=== PATIENT | male | born 1970 | race African-American/Black ===

== ENCOUNTER 2020-04-08 11:20 | Inpatient (IN) | payer MEDICAID, OTHER ==
[~2020-04-08] VITALS: Ht 167.6 cm; Wt 112.5 kg
[~2020-04-08 11:20] MED LIST: ALBU17AE26; AMLO5TAB4; BENA10TA74; HYDR25TA; LIDOCAINE HCL/PF 1% 2ML VIAL ONE; PRIL10; SIMV5TAB58
[2020-04-08] MEDS ORDERED: IPRATROPIUM BROMIDE (0.02%) 0.5MG/2.5ML NEB HHN STA (11:49)
[2020-04-08] MEDS ORDERED: ALBUTEROL (0.083%) 2.5MG/3ML NEB HHN STA (11:49)
[2020-04-08] MEDS ORDERED: CEFTRIAXONE 1 G PREMIX 50 ML IV ONE (12:45)
[2020-04-08] MEDS ORDERED: SODIUM CHLORIDE 0.9% 250 ML IV ONE (12:45)
[2020-04-08] MEDS ORDERED: AZITHROMYCIN 500 MG in DEXT 5% WATER 250 ML IV ONE (12:45)
[2020-04-08] MEDS ORDERED: AZITHROMYCIN 500 MG in DEXT 5% WATER 250 ML IV SCH (13:15)
[2020-04-08] MEDS ORDERED: CEFTRIAXONE 1 G PREMIX 50 ML IV SCH ×2 (13:15→16:45)
[2020-04-08 15:50] LABS: HEMOGLOBIN. 15.6 g/dL (14.0-18.0); MEAN CORPUSCULAR HEMOGLOBIN 21.7 pg (28.0-32.0); MEAN CORPUSCULAR VOLUME 69.2 fL (80.0-94.0); MEAN PLATELET VOLUME 9.1 fl (7.4-10.4); PLATELET 222 x1000/uL (130-400); RED BLOOD CELL COUNT 7.22 mill/uL (4.7-6.1); RED CELL DISTRIBUTION WIDTH 15.3 % (11.6-14.6)
[2020-04-08 15:59] LABS: INR 1.1; PROTHROMBIN TIME 11.2 sec (9.6-11.0)
[2020-04-08 16:11] LABS: PLATELET ESTIMATE NORMAL
[2020-04-08] MEDS ORDERED: BENZONATATE 100MG CAPSULE PO PRN (16:45)
[2020-04-08] MEDS ORDERED: ONDANSETRON HCL 4MG/2ML INJ IV PRN (16:45)
[2020-04-08 16:57] LABS: BG BASE EXCESS 1.9 mmol/L (-2.0-2.0); BG CARBOXYHEMOGLOBIN 1.3 % (0.5-1.5); BG DEOXYHEMOGLOBIN 7.8 % (0.0-5.0); BG HCO3 ACT 24.4 mmol/L (22.0-26.0); BG METHEMOGLOBIN 0.1 % (0.0-1.5); BG OXYGEN SATURATION 92.1 % (92.0-98.5); BG OXYHEMOGLOBIN 90.8 % (94.0-97.0); BG PCO2 32.3 mmHg (35.0-45.0); BG PH 7.496 (7.350-7.450); BG PO2 59.6 mmHg (75.0-100.0); BG SAMPLE SITE RIGHT RADIAL; BG TOTAL HEMOGLOBIN 15.5 g/dL (12.0-18.0); BG VENT MODE ROOM AIR
[2020-04-08 23:44] LABS: CHLORIDE 97 mEq/L (98-107)
[2020-04-09] MEDS: ACETAMINOPHEN 325MG TABLET PO PRN (04:05)
[2020-04-09 04:30] VITALS: BP 122/80
[2020-04-09 05:00] VITALS: BP 122/80
[2020-04-09] MEDS ORDERED: AMLO10TA4 PO (07:39)
[2020-04-09] MEDS ORDERED: ERTU1TAB11 PO (07:39)
[2020-04-09] MEDS ORDERED: HYDR25TA PO (07:39)
[2020-04-09] MEDS ORDERED: FLUT1BLS IH (07:39)
[2020-04-09] MEDS ORDERED: IBUP-2029 PO (07:39)
[2020-04-09] MEDS ORDERED: ATOR20TA PO (07:39)
[2020-04-09] MEDS ORDERED: OMEP20TA15 PO (07:39)
[2020-04-09] MEDS ORDERED: BENA20TA10 MT (07:39)
[2020-04-09 08:00] VITALS: BP 133/58
[2020-04-09] MEDS ORDERED: CEFTRIAXONE 1,000 MG in DEXTROSE 5% WATER 50 ML IV SCH (09:00)
[2020-04-09] MEDS: ENOXAPARIN 30MG/0.3ML SYR SUBCUT SCH ×2 (11:52→22:31)
[2020-04-09] MEDS: AZITHROMYCIN 250 MG TABLET PO SCH (11:52)
[2020-04-09 11:58] VITALS: BP 136/87
[2020-04-09 12:07] LABS: HEMATOCRIT. 49.3 % (42.0-52.0); HEMOGLOBIN. 15.3 g/dL (14.0-18.0); MEAN CORPUSCULAR HEMOGLOBIN 21.5 pg (28.0-32.0); MEAN CORPUSCULAR VOLUME 69.3 fL (80.0-94.0); MEAN PLATELET VOLUME 8.9 fl (7.4-10.4); PLATELET 197 x1000/uL (130-400); RED BLOOD CELL COUNT 7.11 mill/uL (4.7-6.1); RED CELL DISTRIBUTION WIDTH 15.4 % (11.6-14.6)
[2020-04-09 12:37] LABS: CHLORIDE 96 mEq/L (98-107)
[2020-04-09 14:30] LABS: PLATELET ESTIMATE NORMAL
[2020-04-09 15:08] VITALS: BP 131/74
[2020-04-09] MEDS ORDERED: POTASSIUM CHLORIDE 20MEQ TABLET SR PO NR (17:40)
[2020-04-09] MEDS: BLOOD SUGAR DIAGNOSTIC STRIP TEST SCH ×2 (17:40→21:00)
[2020-04-09] MEDS: INSULIN LISPRO 100 UNITS/ML SUBCUT SCH ×2 (17:40→21:00)
[2020-04-09] MEDS: CEFTRIAXONE 1,000 MG in DEXTROSE 5% WATER 50 ML IV SCH (17:42)
[2020-04-09] MEDS ORDERED: DEXTROSE 50% WATER 50ML SYRINGE IV PRN (17:45)
[2020-04-09] MEDS: DEXAMETHASONE 4MG TABLET PO SCH (20:18)
[2020-04-09] MEDS: LORAZEPAM 1MG TABLET PO PRN (22:32)
[2020-04-09 22:40] VITALS: BP 141/90
[2020-04-10] VITALS: BP 148/85
[2020-04-10] MEDS: ACETAMINOPHEN 325MG TABLET PO PRN (04:54)
[2020-04-10 06:00] VITALS: BP 169/97
[2020-04-10] MEDS: BLOOD SUGAR DIAGNOSTIC STRIP TEST SCH ×4 (06:03→21:00)
[2020-04-10] MEDS: AMLODIPINE 10MG TABLET PO SCH (06:03)
[2020-04-10] MEDS: INSULIN LISPRO 100 UNITS/ML SUBCUT SCH ×4 (07:40→21:58)
[2020-04-10 08:00] VITALS: BP 132/91
[2020-04-10] MEDS ORDERED: POTASSIUM CHLORIDE 20MEQ TABLET SR PO NR (08:15)
[2020-04-10] MEDS: DEXAMETHASONE 4MG TABLET PO SCH (09:15)
[2020-04-10] MEDS: ENOXAPARIN 30MG/0.3ML SYR SUBCUT SCH ×2 (09:15→21:31)
[2020-04-10] MEDS: AZITHROMYCIN 250 MG TABLET PO SCH (09:15)
[2020-04-10] MEDS: LORAZEPAM 1MG TABLET PO PRN (11:30)
[2020-04-10 12:00] VITALS: BP 144/105
[2020-04-10 15:21] VITALS: BP 143/96
[2020-04-10] MEDS: CEFTRIAXONE 1,000 MG in DEXTROSE 5% WATER 50 ML IV SCH (15:45)
[2020-04-10 21:30] VITALS: BP 133/85
[2020-04-10] MEDS: METOPROLOL TARTRATE 25MG TABLET PO SCH (21:32)
[2020-04-10] MEDS: GUAIFENESIN 600MG ER TABLET PO SCH (21:32)
[2020-04-10 21:38] LABS: BASOPHILS % 0.2 % (0.0-2.0); HEMATOCRIT. 47.7 % (42.0-52.0); HEMOGLOBIN. 15.1 g/dL (14.0-18.0); LYMPHOCYTES % 8.1 % (20.0-50.0); MEAN CORPUSCULAR HEMOGLOBIN 21.7 pg (28.0-32.0); MEAN CORPUSCULAR VOLUME 68.5 fL (80.0-94.0); MEAN PLATELET VOLUME 8.6 fl (7.4-10.4); MONOCYTES % 12.6 % (2.0-8.0); NEUTROPHILS % 79.1 % (40.0-76.0); PLATELET 300 x1000/uL (130-400); RED BLOOD CELL COUNT 6.96 mill/uL (4.7-6.1); RED CELL DISTRIBUTION WIDTH 15.7 % (11.6-14.6)
[2020-04-10 21:53] LABS: CHLORIDE 96 mEq/L (98-107)
[2020-04-11] VITALS: BP 138/60
[2020-04-11 04:00] VITALS: BP 151/89
[2020-04-11] MEDS: BLOOD SUGAR DIAGNOSTIC STRIP TEST SCH ×4 (04:59→19:57)
[2020-04-11] MEDS: INSULIN LISPRO 100 UNITS/ML SUBCUT SCH ×4 (05:29→21:00)
[2020-04-11 07:18] LABS: BASOPHILS % 0.2 % (0.0-2.0); HEMATOCRIT. 49.8 % (42.0-52.0); HEMOGLOBIN. 15.8 g/dL (14.0-18.0); LYMPHOCYTES % 9.1 % (20.0-50.0); MEAN CORPUSCULAR HEMOGLOBIN 21.6 pg (28.0-32.0); MEAN CORPUSCULAR VOLUME 68.2 fL (80.0-94.0); MEAN PLATELET VOLUME 9.2 fl (7.4-10.4); MONOCYTES % 13.3 % (2.0-8.0); NEUTROPHILS % 77.4 % (40.0-76.0); PLATELET 271 x1000/uL (130-400); RED BLOOD CELL COUNT 7.31 mill/uL (4.7-6.1); RED CELL DISTRIBUTION WIDTH 15.5 % (11.6-14.6)
[2020-04-11 07:38] LABS: CHLORIDE 96 mEq/L (98-107)
[2020-04-11 08:00] VITALS: BP 141/72
[2020-04-11] MEDS: GUAIFENESIN 600MG ER TABLET PO SCH ×2 (08:34→21:42)
[2020-04-11] MEDS: DEXAMETHASONE 4MG TABLET PO SCH (08:34)
[2020-04-11] MEDS: AZITHROMYCIN 250 MG TABLET PO SCH (08:34)
[2020-04-11] MEDS: ENOXAPARIN 30MG/0.3ML SYR SUBCUT SCH (08:35)
[2020-04-11] MEDS: AMLODIPINE 10MG TABLET PO SCH (08:35)
[2020-04-11] MEDS: METOPROLOL TARTRATE 25MG TABLET PO SCH ×2 (08:35→21:42)
[2020-04-11 12:00] VITALS: BP 140/75
[2020-04-11 13:46] LABS: PLATELET ESTIMATE NORMAL
[2020-04-11 16:00] VITALS: BP 119/71
[2020-04-11] MEDS: CEFTRIAXONE 1,000 MG in DEXTROSE 5% WATER 50 ML IV SCH (16:55)
[2020-04-11 20:00] VITALS: BP 131/78
[2020-04-11] MEDS: ENOXAPARIN 40MG/0.4ML SYR SUBCUT SCH (21:42)
[2020-04-12] VITALS: BP 128/77
[2020-04-12 04:00] VITALS: BP 129/79
[2020-04-12] MEDS: INSULIN LISPRO 100 UNITS/ML SUBCUT SCH ×4 (05:40→21:00)
[2020-04-12] MEDS: BLOOD SUGAR DIAGNOSTIC STRIP TEST SCH ×4 (05:40→21:00)
[2020-04-12 08:00] VITALS: BP 132/80
[2020-04-12] MEDS: AMLODIPINE 10MG TABLET PO SCH (08:17)
[2020-04-12] MEDS: GUAIFENESIN 600MG ER TABLET PO SCH (08:17)
[2020-04-12] MEDS: DEXAMETHASONE 4MG TABLET PO SCH (08:17)
[2020-04-12] MEDS: METOPROLOL TARTRATE 25MG TABLET PO SCH (08:17)
[2020-04-12] MEDS: ENOXAPARIN 40MG/0.4ML SYR SUBCUT SCH (08:18)
[2020-04-12 12:00] VITALS: BP 134/75
[2020-04-12] MEDS: ALBUTEROL 6.7GM HFA INHALER ORI SCH (13:50)
[2020-04-12 16:00] VITALS: BP 123/80
[2020-04-12 20:00] VITALS: BP 133/80
[2020-04-13] VITALS: BP 115/77
[2020-04-13] MEDS: GUAIFENESIN 600MG ER TABLET PO SCH ×3 (01:24→22:30)
[2020-04-13] MEDS: ENOXAPARIN 40MG/0.4ML SYR SUBCUT SCH ×3 (01:24→22:32)
[2020-04-13] MEDS: ZOLPIDEM TARTRATE 5MG TABLET PO PRN ×2 (01:26→22:30)
[2020-04-13] MEDS: METOPROLOL TARTRATE 25MG TABLET PO SCH ×3 (01:26→22:31)
[2020-04-13] MEDS: ALBUTEROL 6.7GM HFA INHALER ORI SCH ×5 (01:30→18:36)
[2020-04-13] MEDS: BLOOD SUGAR DIAGNOSTIC STRIP TEST SCH ×4 (07:10→21:00)
[2020-04-13] MEDS: INSULIN LISPRO 100 UNITS/ML SUBCUT SCH ×4 (07:40→21:00)
[2020-04-13 08:00] VITALS: BP 126/76
[2020-04-13] MEDS: DEXAMETHASONE 6MG TABLET PO SCH (08:43)
[2020-04-13] MEDS: AMLODIPINE 10MG TABLET PO SCH (08:44)
[2020-04-13] MEDS: ACETAMINOPHEN 325MG TABLET PO PRN (08:44)
[2020-04-13 12:00] VITALS: BP 118/66
[2020-04-13 16:30] VITALS: BP 148/96
[2020-04-13] MEDS ORDERED: FAMOTIDINE 20MG TABLET PO NR (18:12)
[2020-04-13 20:00] VITALS: BP 147/80
[2020-04-14] VITALS: BP 135/76
[2020-04-14] MEDS: ALBUTEROL 6.7GM HFA INHALER ORI SCH ×2 (01:12→21:59)
[2020-04-14 04:00] VITALS: BP 126/76
[2020-04-14] MEDS: BLOOD SUGAR DIAGNOSTIC STRIP TEST SCH ×4 (05:55→21:53)
[2020-04-14] MEDS: INSULIN LISPRO 100 UNITS/ML SUBCUT SCH ×4 (05:55→21:00)
[2020-04-14 07:14] LABS: CHLORIDE 98 mEq/L (98-107)
[2020-04-14 07:48] LABS: BASOPHILS % 0.2 % (0.0-2.0); EOSINOPHILS % 0.1 % (0.0-5.0); HEMOGLOBIN. 15.3 g/dL (14.0-18.0); LYMPHOCYTES % 10.1 % (20.0-50.0); MEAN CORPUSCULAR HEMOGLOBIN 21.7 pg (28.0-32.0); MEAN CORPUSCULAR VOLUME 68.3 fL (80.0-94.0); MEAN PLATELET VOLUME 8.2 fl (7.4-10.4); MONOCYTES % 13.4 % (2.0-8.0); NEUTROPHILS % 76.2 % (40.0-76.0); PLATELET 500 x1000/uL (130-400); RED BLOOD CELL COUNT 7.03 mill/uL (4.7-6.1); RED CELL DISTRIBUTION WIDTH 15.2 % (11.6-14.6)
[2020-04-14 08:00] VITALS: BP 118/78
[2020-04-14] MEDS: DEXAMETHASONE 6MG TABLET PO SCH (10:02)
[2020-04-14] MEDS: ENOXAPARIN 40MG/0.4ML SYR SUBCUT SCH ×2 (10:02→21:58)
[2020-04-14] MEDS: AMLODIPINE 10MG TABLET PO SCH (10:03)
[2020-04-14] MEDS: GUAIFENESIN 600MG ER TABLET PO SCH ×2 (10:03→21:57)
[2020-04-14] MEDS: METOPROLOL TARTRATE 25MG TABLET PO SCH ×2 (10:03→21:57)
[2020-04-14] MEDS: ACETAMINOPHEN 325MG TABLET PO PRN (10:04)
[2020-04-14 12:00] VITALS: BP 117/72
[2020-04-14] MEDS: FAMOTIDINE 20MG TABLET PO SCH (12:52)
[2020-04-14 16:00] VITALS: BP 122/76
[2020-04-14 20:00] VITALS: BP 119/77
[2020-04-14] MEDS: ZOLPIDEM TARTRATE 5MG TABLET PO PRN (21:57)
[2020-04-15] VITALS: BP 131/82
[2020-04-15] MEDS: ALBUTEROL 6.7GM HFA INHALER ORI SCH ×4 (02:02→21:47)
[2020-04-15 04:00] VITALS: BP_SYST 131; BP_SYST 137; BP_DIAS 81; BP_DIAS 82
[2020-04-15] MEDS: BLOOD SUGAR DIAGNOSTIC STRIP TEST SCH ×4 (06:25→21:56)
[2020-04-15 06:35] LABS: BASOPHILS % 0.2 % (0.0-2.0); EOSINOPHILS % 0.3 % (0.0-5.0); HEMATOCRIT. 48.5 % (42.0-52.0); HEMOGLOBIN. 15.3 g/dL (14.0-18.0); LYMPHOCYTES % 9.3 % (20.0-50.0); MEAN CORPUSCULAR HEMOGLOBIN 21.7 pg (28.0-32.0); MEAN CORPUSCULAR VOLUME 69.1 fL (80.0-94.0); MEAN PLATELET VOLUME 7.8 fl (7.4-10.4); MONOCYTES % 14.2 % (2.0-8.0); PLATELET 524 x1000/uL (130-400); RED BLOOD CELL COUNT 7.02 mill/uL (4.7-6.1)
[2020-04-15] MEDS: INSULIN LISPRO 100 UNITS/ML SUBCUT SCH ×4 (06:35→21:47)
[2020-04-15 06:49] LABS: CHLORIDE 99 mEq/L (98-107)
[2020-04-15 08:00] VITALS: BP 125/80
[2020-04-15] MEDS: METOPROLOL TARTRATE 25MG TABLET PO SCH ×2 (08:45→21:55)
[2020-04-15] MEDS: FAMOTIDINE 20MG TABLET PO SCH (08:45)
[2020-04-15] MEDS: DEXAMETHASONE 6MG TABLET PO SCH (08:45)
[2020-04-15] MEDS: GUAIFENESIN 600MG ER TABLET PO SCH ×2 (08:46→21:47)
[2020-04-15] MEDS: ENOXAPARIN 40MG/0.4ML SYR SUBCUT SCH ×2 (08:46→21:56)
[2020-04-15 12:00] VITALS: BP 127/82
[2020-04-15] MEDS: AMLODIPINE 10MG TABLET PO SCH (12:29)
[2020-04-15 16:00] VITALS: BP 143/93
[2020-04-15] MEDS: MORPHINE SULFATE 2 MG/ML CPJ (NOT FOR IM USE) IV PRN (17:16)
[2020-04-15 20:00] VITALS: BP 141/100
[2020-04-15] MEDS: ZOLPIDEM TARTRATE 5MG TABLET PO PRN (21:50)
[2020-04-15] MEDS: LOPERAMIDE HCL 2MG CAPSULE PO PRN (21:56)
[2020-04-16] VITALS: BP 134/87
[2020-04-16 04:00] VITALS: BP 135/89
[2020-04-16] MEDS: ALBUTEROL 6.7GM HFA INHALER ORI SCH ×4 (05:39→19:49)
[2020-04-16] MEDS: BLOOD SUGAR DIAGNOSTIC STRIP TEST SCH ×4 (06:41→21:00)
[2020-04-16 08:00] VITALS: BP 141/88
[2020-04-16] MEDS: LACTOBACILLUS GG CAPSULE PO SCH (08:07)
[2020-04-16] MEDS: FAMOTIDINE 20MG TABLET PO SCH (08:07)
[2020-04-16] MEDS: AMLODIPINE 10MG TABLET PO SCH (08:07)
[2020-04-16] MEDS: GUAIFENESIN 600MG ER TABLET PO SCH ×2 (08:07→22:02)
[2020-04-16] MEDS: METOPROLOL TARTRATE 25MG TABLET PO SCH (08:08)
[2020-04-16] MEDS: DEXAMETHASONE 6MG TABLET PO SCH (08:08)
[2020-04-16] MEDS: ENOXAPARIN 40MG/0.4ML SYR SUBCUT SCH ×2 (08:08→22:02)
[2020-04-16] MEDS: INSULIN LISPRO 100 UNITS/ML SUBCUT SCH ×4 (08:09→22:03)
[2020-04-16 12:00] VITALS: BP 144/92
[2020-04-16 16:00] VITALS: BP 143/92
[2020-04-16 20:00] VITALS: BP 131/85
[2020-04-16] MEDS ORDERED: IVERMECTIN 3 MG TABLET PO NR (20:00)
[2020-04-16] MEDS: METOPROLOL TARTRATE 50MG TABLET PO SCH (22:02)
[2020-04-17] VITALS: BP 131/96
[2020-04-17] MEDS: ALBUTEROL 6.7GM HFA INHALER ORI SCH ×3 (01:30→22:25)
[2020-04-17 04:00] VITALS: BP 126/84
[2020-04-17] MEDS: INSULIN LISPRO 100 UNITS/ML SUBCUT SCH ×4 (06:12→21:00)
[2020-04-17] MEDS: BLOOD SUGAR DIAGNOSTIC STRIP TEST SCH ×4 (06:12→21:00)
[2020-04-17 08:00] VITALS: BP 144/92
[2020-04-17] MEDS: LACTOBACILLUS GG CAPSULE PO SCH (11:23)
[2020-04-17] MEDS: DEXAMETHASONE 6MG TABLET PO SCH (11:23)
[2020-04-17] MEDS: ENOXAPARIN 40MG/0.4ML SYR SUBCUT SCH ×2 (11:23→22:24)
[2020-04-17] MEDS: FAMOTIDINE 20MG TABLET PO SCH (11:23)
[2020-04-17] MEDS: GUAIFENESIN 600MG ER TABLET PO SCH ×2 (11:23→22:24)
[2020-04-17] MEDS: AMLODIPINE 10MG TABLET PO SCH (11:24)
[2020-04-17] MEDS: METOPROLOL TARTRATE 50MG TABLET PO SCH ×2 (11:25→22:24)
[2020-04-17 12:00] VITALS: BP 145/100
[2020-04-17] MEDS: ACETAMINOPHEN 325MG TABLET PO PRN (12:11)
[2020-04-17] MEDS: LOPERAMIDE HCL 2MG CAPSULE PO PRN (14:36)
[2020-04-17 16:00] VITALS: BP 135/98
[2020-04-17 20:00] VITALS: BP 126/91
[2020-04-18] MEDS: ALBUTEROL 6.7GM HFA INHALER ORI SCH ×4 (01:30→21:25)
[2020-04-18 04:00] VITALS: BP 130/90
[2020-04-18] MEDS: BLOOD SUGAR DIAGNOSTIC STRIP TEST SCH ×4 (06:08→21:40)
[2020-04-18] MEDS: INSULIN LISPRO 100 UNITS/ML SUBCUT SCH ×4 (06:41→21:36)
[2020-04-18] MEDS: AMLODIPINE 10MG TABLET PO SCH (08:36)
[2020-04-18] MEDS: ACETAMINOPHEN 325MG TABLET PO PRN (08:37)
[2020-04-18] MEDS: LACTOBACILLUS GG CAPSULE PO SCH (08:37)
[2020-04-18] MEDS: GUAIFENESIN 600MG ER TABLET PO SCH ×2 (08:37→21:28)
[2020-04-18] MEDS: METOPROLOL TARTRATE 50MG TABLET PO SCH ×2 (08:37→21:28)
[2020-04-18] MEDS: FAMOTIDINE 20MG TABLET PO SCH (08:37)
[2020-04-18] MEDS: ENOXAPARIN 40MG/0.4ML SYR SUBCUT SCH ×2 (08:38→21:27)
[2020-04-18] MEDS: DEXAMETHASONE 6MG TABLET PO SCH (08:38)
[2020-04-18 12:08] VITALS: BP 135/76
[2020-04-18 12:12] VITALS: BP 146/86
[2020-04-18 16:05] VITALS: BP 141/96
[2020-04-18 17:02] LABS: HEMATOCRIT. 49.1 % (42.0-52.0); HEMOGLOBIN. 15.1 g/dL (14.0-18.0); MEAN CORPUSCULAR HEMOGLOBIN 21.3 pg (28.0-32.0); MEAN CORPUSCULAR VOLUME 68.9 fL (80.0-94.0); MEAN PLATELET VOLUME 7.9 fl (7.4-10.4); PLATELET 462 x1000/uL (130-400); RED BLOOD CELL COUNT 7.12 mill/uL (4.7-6.1); RED CELL DISTRIBUTION WIDTH 15.1 % (11.6-14.6)
[2020-04-18 17:22] LABS: CHLORIDE 103 mEq/L (98-107)
[2020-04-18 18:13] LABS: PLATELET ESTIMATE INCREASED
[2020-04-18] MEDS ORDERED: IVERMECTIN 3 MG TABLET PO SCH (18:30)
[2020-04-18 20:00] VITALS: BP 126/79
[2020-04-18] MEDS: CEFEPIME 1,000 MG in DEXTROSE 5% WATER 50 ML IV SCH (21:26)
[2020-04-18] MEDS: MORPHINE SULFATE 2 MG/ML CPJ (NOT FOR IM USE) IV PRN (23:52)
[2020-04-18 23:54] LABS: BG BASE EXCESS -0.4 mmol/L (-2.0-2.0); BG DEOXYHEMOGLOBIN 35.9 % (0.0-5.0); BG FRACTION INSPIRED OXYGEN 100; BG HCO3 ACT 23.4 mmol/L (22.0-26.0); BG METHEMOGLOBIN 0.3 % (0.0-1.5); BG OXYGEN SATURATION 63.6 % (92.0-98.5); BG OXYHEMOGLOBIN 62.8 % (94.0-97.0); BG PO2 32.9 mmHg (75.0-100.0); BG SAMPLE SITE RIGHT RADIAL; BG TOTAL HEMOGLOBIN 16.6 g/dL (12.0-18.0); BG VENT MODE MASK - NRB
[2020-04-19] VITALS (98 sets, daily range): BP systolic 56–170; BP diastolic 27–119
[2020-04-19] MEDS: ALBUTEROL 6.7GM HFA INHALER ORI SCH ×3 (00:39→13:48)
[2020-04-19] MEDS: PROPOFOL 10MG/ML 100ML 100 ML IV PRN ×7 (01:35→19:09)
[2020-04-19] MEDS: FENTANYL CITRATE/PF 2,500 MCG in SODIUM CHLORIDE 0.9% 200 ML IV PRN ×2 (01:35→04:20)
[2020-04-19 03:00] LABS: BG BASE EXCESS -4.5 mmol/L (-2.0-2.0); BG CARBOXYHEMOGLOBIN 0.6 % (0.5-1.5); BG DEOXYHEMOGLOBIN 16.6 % (0.0-5.0); BG FRACTION INSPIRED OXYGEN 100; BG HCO3 ACT 22.4 mmol/L (22.0-26.0); BG METHEMOGLOBIN 0.3 % (0.0-1.5); BG OXYGEN SATURATION 83.2 % (92.0-98.5); BG OXYHEMOGLOBIN 82.5 % (94.0-97.0); BG PCO2 47.6 mmHg (35.0-45.0); BG PH 7.291 (7.350-7.450); BG PO2 53.3 mmHg (75.0-100.0); BG SAMPLE SITE RIGHT RADIAL; BG TOTAL HEMOGLOBIN 17.1 g/dL (12.0-18.0); BG TOTAL RESPIRATORY RATE 22 b/min; BG VENT MODE VENT - AC
[2020-04-19] MEDS ORDERED: PHENYLEPHRINE 100 MG in DEXT 5% WATER 240 ML IV PRN (04:00)
[2020-04-19] MEDS ORDERED: FENTANYL CITRATE/PF 2,500 MCG in SODIUM CHLORIDE 0.9% 200 ML IV PRN (04:00)
[2020-04-19] MEDS: MIDAZOLAM HCL 100 MG in DEXT 5% WATER 80 ML IV PRN ×4 (04:00→21:28)
[2020-04-19 08:12] LABS: CHLORIDE 106 mEq/L (98-107); HEMATOCRIT. 49.3 % (42.0-52.0); HEMOGLOBIN. 14.8 g/dL (14.0-18.0); MEAN CORPUSCULAR HEMOGLOBIN 21.1 pg (28.0-32.0); MEAN CORPUSCULAR VOLUME 70.6 fL (80.0-94.0); MEAN PLATELET VOLUME 8.3 fl (7.4-10.4); PLATELET 532 x1000/uL (130-400); RED BLOOD CELL COUNT 6.98 mill/uL (4.7-6.1); RED CELL DISTRIBUTION WIDTH 15.2 % (11.6-14.6)
[2020-04-19 08:17] LABS: PHOSPHORUS 7.2 mg/dL (2.5-4.9)
[2020-04-19] MEDS: BLOOD SUGAR DIAGNOSTIC STRIP TEST SCH ×4 (08:20→21:00)
[2020-04-19] MEDS: LACTOBACILLUS GG CAPSULE PO SCH (08:37)
[2020-04-19] MEDS: METOPROLOL TARTRATE 50MG TABLET PO SCH (08:37)
[2020-04-19] MEDS: DEXAMETHASONE 6MG TABLET PO SCH (08:38)
[2020-04-19] MEDS: GUAIFENESIN 600MG ER TABLET PO SCH ×2 (08:38→21:24)
[2020-04-19] MEDS: FAMOTIDINE 20MG TABLET PO SCH (08:45)
[2020-04-19] MEDS: ENOXAPARIN 40MG/0.4ML SYR SUBCUT SCH ×2 (08:46→21:25)
[2020-04-19] MEDS: CEFEPIME 1,000 MG in DEXTROSE 5% WATER 50 ML IV SCH ×2 (08:50→21:24)
[2020-04-19] MEDS: AMLODIPINE 10MG TABLET PO SCH (08:51)
[2020-04-19] MEDS: INSULIN LISPRO 100 UNITS/ML SUBCUT SCH ×3 (08:52→17:21)
[2020-04-19] MEDS: ACETAMINOPHEN 325MG TABLET PO PRN ×3 (09:17→15:53)
[2020-04-19 10:41] LABS: BG BASE EXCESS -2.9 mmol/L (-2.0-2.0); BG CARBOXYHEMOGLOBIN 0.9 % (0.5-1.5); BG DEOXYHEMOGLOBIN 6.1 % (0.0-5.0); BG METHEMOGLOBIN 0.1 % (0.0-1.5); BG OXYGEN SATURATION 93.8 % (92.0-98.5); BG OXYHEMOGLOBIN 92.9 % (94.0-97.0); BG PCO2 62.6 mmHg (35.0-45.0); BG PH 7.237 (7.350-7.450); BG PO2 81.1 mmHg (75.0-100.0); BG SAMPLE SITE RIGHT RADIAL; BG TOTAL HEMOGLOBIN 15.9 g/dL (12.0-18.0); BG VENT MODE VENT - AC
[2020-04-19 13:51] LABS: NUCLEATED RED BLOOD CELLS 1 /100 WBC
[2020-04-19 13:52] LABS: PLATELET ESTIMATE INCREASED
[2020-04-19] MEDS: IPRATROPIUM BROMIDE (0.02%) 0.5MG/2.5ML NEB HHN SCH ×2 (15:30→20:50)
[2020-04-19] MEDS ORDERED: ASCORBIC ACID 500MG/5ML 120ML PO SCH (16:30)
[2020-04-19] MEDS: ZINC SULFATE 220 MG ( 50 ) CAPSULE PO SCH (17:20)
[2020-04-19] MEDS: ASCORBIC ACID 500 MG TABLET PO SCH (17:20)
[2020-04-19] MEDS: THIAMINE HCL 100MG TABLET PO SCH (17:22)
[2020-04-19] MEDS: METOPROLOL TARTRATE 100MG TABLET PO SCH (21:00)
[2020-04-20] VITALS (95 sets, daily range): BP systolic 85–143; BP diastolic 51–87
[2020-04-20] MEDS: PROPOFOL 10MG/ML 100ML 100 ML IV PRN ×2 (00:13→04:48)
[2020-04-20] MEDS: METOPROLOL TARTRATE 100MG TABLET PO SCH ×2 (00:21→20:51)
[2020-04-20] MEDS: ALBUTEROL 6.7GM HFA INHALER ORI SCH ×3 (01:30→20:26)
[2020-04-20] MEDS: INSULIN LISPRO 100 UNITS/ML SUBCUT SCH ×5 (01:46→21:14)
[2020-04-20] MEDS ORDERED: PROPOFOL 10MG/ML 100ML 100 ML IV PRN (02:00)
[2020-04-20] MEDS: FENTANYL CITRATE/PF 2,500 MCG in SODIUM CHLORIDE 0.9% 200 ML IV PRN ×2 (04:06→17:31)
[2020-04-20] MEDS: IPRATROPIUM BROMIDE (0.02%) 0.5MG/2.5ML NEB HHN SCH ×4 (04:16→20:26)
[2020-04-20 05:46] LABS: HEMATOCRIT. 46.6 % (42.0-52.0); HEMOGLOBIN. 14.3 g/dL (14.0-18.0); MEAN CORPUSCULAR HEMOGLOBIN 21.7 pg (28.0-32.0); MEAN CORPUSCULAR VOLUME 70.7 fL (80.0-94.0); MEAN PLATELET VOLUME 8.4 fl (7.4-10.4); PLATELET 391 x1000/uL (130-400)
[2020-04-20 05:53] LABS: CHLORIDE 105 mEq/L (98-107)
[2020-04-20] MEDS: BLOOD SUGAR DIAGNOSTIC STRIP TEST SCH ×4 (08:21→21:00)
[2020-04-20] MEDS: MIDAZOLAM HCL 100 MG in DEXT 5% WATER 80 ML IV PRN ×2 (08:56→17:32)
[2020-04-20] MEDS: ENOXAPARIN 40MG/0.4ML SYR SUBCUT SCH (09:33)
[2020-04-20] MEDS: ZINC SULFATE 220 MG ( 50 ) CAPSULE PO SCH (09:33)
[2020-04-20] MEDS: CEFEPIME 1,000 MG in DEXTROSE 5% WATER 50 ML IV SCH ×2 (09:33→20:52)
[2020-04-20] MEDS: ASCORBIC ACID 500 MG TABLET PO SCH (09:33)
[2020-04-20] MEDS: FAMOTIDINE 20MG TABLET PO SCH (09:33)
[2020-04-20] MEDS: DEXAMETHASONE 6MG TABLET PO SCH (09:33)
[2020-04-20] MEDS: GUAIFENESIN 600MG ER TABLET PO SCH ×2 (09:33→20:51)
[2020-04-20] MEDS: LACTOBACILLUS GG CAPSULE PO SCH (09:33)
[2020-04-20] MEDS: THIAMINE HCL 100MG TABLET PO SCH (09:34)
[2020-04-20] MEDS: AMLODIPINE 10MG TABLET PO SCH (09:34)
[2020-04-20 13:20] LABS: BG CARBOXYHEMOGLOBIN 0.4 % (0.5-1.5); BG DEOXYHEMOGLOBIN 1.8 % (0.0-5.0); BG HCO3 ACT 25.2 mmol/L (22.0-26.0); BG METHEMOGLOBIN 0.1 % (0.0-1.5); BG OXYGEN SATURATION 98.2 % (92.0-98.5); BG OXYHEMOGLOBIN 97.7 % (94.0-97.0); BG PCO2 52.5 mmHg (35.0-45.0); BG PH 7.299 (7.350-7.450); BG PO2 128.4 mmHg (75.0-100.0); BG SAMPLE SITE RIGHT RADIAL; BG TOTAL HEMOGLOBIN 15.4 g/dL (12.0-18.0); BG VENT MODE VENT - AC
[2020-04-20 14:26] LABS: PLATELET ESTIMATE NORMAL
[2020-04-20] MEDS: SODIUM CHLORIDE 0.45% 1,000 ML IV SCH (17:22)
[2020-04-20] MEDS: ENOXAPARIN 30MG/0.3ML SYR SUBCUT SCH (20:55)
[2020-04-21] VITALS (79 sets, daily range): BP systolic 102–140; BP diastolic 59–99
[2020-04-21] MEDS: ALBUTEROL 6.7GM HFA INHALER ORI SCH ×4 (00:51→20:40)
[2020-04-21] MEDS: IPRATROPIUM BROMIDE (0.02%) 0.5MG/2.5ML NEB HHN SCH ×3 (00:51→13:51)
[2020-04-21] MEDS: FENTANYL CITRATE/PF 2,500 MCG in SODIUM CHLORIDE 0.9% 200 ML IV PRN ×3 (03:17→23:33)
[2020-04-21] MEDS: MIDAZOLAM HCL 100 MG in DEXT 5% WATER 80 ML IV PRN ×2 (03:17→13:06)
[2020-04-21 05:50] LABS: HEMATOCRIT. 43.8 % (42.0-52.0); HEMOGLOBIN. 13.6 g/dL (14.0-18.0); MEAN CORPUSCULAR HEMOGLOBIN 21.7 pg (28.0-32.0); MEAN CORPUSCULAR VOLUME 70.1 fL (80.0-94.0); RED BLOOD CELL COUNT 6.24 mill/uL (4.7-6.1); RED CELL DISTRIBUTION WIDTH 16.1 % (11.6-14.6)
[2020-04-21] MEDS: SODIUM CHLORIDE 0.45% 1,000 ML IV SCH ×2 (06:02→18:40)
[2020-04-21 06:05] LABS: CHLORIDE 108 mEq/L (98-107)
[2020-04-21] MEDS: BLOOD SUGAR DIAGNOSTIC STRIP TEST SCH ×4 (06:54→21:00)
[2020-04-21] MEDS: INSULIN LISPRO 100 UNITS/ML SUBCUT SCH ×4 (06:56→21:00)
[2020-04-21 07:57] LABS: PLATELET ESTIMATE INCREASED
[2020-04-21 07:59] LABS: MEAN PLATELET VOLUME 8.9 fl (7.4-10.4); PLATELET 435 x1000/uL (130-400)
[2020-04-21] MEDS: FAMOTIDINE 20MG TABLET PO SCH (08:31)
[2020-04-21] MEDS: LACTOBACILLUS GG CAPSULE PO SCH (08:31)
[2020-04-21] MEDS: DEXAMETHASONE 6MG TABLET PO SCH (08:31)
[2020-04-21] MEDS: AMLODIPINE 10MG TABLET PO SCH (08:31)
[2020-04-21] MEDS: GUAIFENESIN 600MG ER TABLET PO SCH ×2 (08:31→23:33)
[2020-04-21] MEDS: THIAMINE HCL 100MG TABLET PO SCH (08:31)
[2020-04-21] MEDS: ZINC SULFATE 220 MG ( 50 ) CAPSULE PO SCH (08:32)
[2020-04-21] MEDS: METOPROLOL TARTRATE 100MG TABLET PO SCH ×2 (08:32→23:33)
[2020-04-21] MEDS: ASCORBIC ACID 500 MG TABLET PO SCH (08:32)
[2020-04-21] MEDS: ENOXAPARIN 30MG/0.3ML SYR SUBCUT SCH ×2 (08:33→23:34)
[2020-04-21] MEDS: CEFEPIME 1,000 MG in DEXTROSE 5% WATER 50 ML IV SCH ×2 (08:48→23:33)
[2020-04-21 11:24] LABS: BG FRACTION INSPIRED OXYGEN 80; BG HCO3 ACT 28.8 mmol/L (22.0-26.0); BG METHEMOGLOBIN 0.2 % (0.0-1.5); BG OXYGEN SATURATION 94.9 % (92.0-98.5); BG OXYHEMOGLOBIN 93.8 % (94.0-97.0); BG PCO2 58.7 mmHg (35.0-45.0); BG PH 7.309 (7.350-7.450); BG PO2 77.7 mmHg (75.0-100.0); BG SAMPLE SITE RIGHT RADIAL; BG VENT MODE VENT - AC
[2020-04-21] MEDS: CEFAZOLIN 1000MG PREMIX 50 ML IV SCH (23:39)
[2020-04-22] VITALS (77 sets, daily range): BP systolic 109–171; BP diastolic 69–128
[2020-04-22] MEDS: MIDAZOLAM HCL 100 MG in DEXT 5% WATER 80 ML IV PRN ×2 (01:34→14:24)
[2020-04-22] MEDS: IPRATROPIUM BROMIDE (0.02%) 0.5MG/2.5ML NEB HHN SCH ×3 (03:05→20:59)
[2020-04-22 05:59] LABS: BASOPHILS % 0.5 % (0.0-2.0); EOSINOPHILS % 0.4 % (0.0-5.0); HEMATOCRIT. 42.3 % (42.0-52.0); HEMOGLOBIN. 13.2 g/dL (14.0-18.0); LYMPHOCYTES % 7.8 % (20.0-50.0); MEAN CORPUSCULAR VOLUME 70.5 fL (80.0-94.0); MEAN PLATELET VOLUME 8.1 fl (7.4-10.4); MONOCYTES % 13.8 % (2.0-8.0); NEUTROPHILS % 77.5 % (40.0-76.0); PLATELET 374 x1000/uL (130-400); RED CELL DISTRIBUTION WIDTH 15.8 % (11.6-14.6)
[2020-04-22 06:07] LABS: CHLORIDE 112 mEq/L (98-107)
[2020-04-22] MEDS: BLOOD SUGAR DIAGNOSTIC STRIP TEST SCH ×3 (06:44→17:25)
[2020-04-22] MEDS: CEFAZOLIN 1000MG PREMIX 50 ML IV SCH ×3 (06:44→23:52)
[2020-04-22] MEDS: INSULIN LISPRO 100 UNITS/ML SUBCUT SCH ×3 (06:44→17:25)
[2020-04-22] MEDS: SODIUM CHLORIDE 0.45% 1,000 ML IV SCH ×2 (08:29→22:49)
[2020-04-22] MEDS: FENTANYL CITRATE/PF 2,500 MCG in SODIUM CHLORIDE 0.9% 200 ML IV PRN ×2 (08:33→18:52)
[2020-04-22] MEDS: ALBUTEROL 6.7GM HFA INHALER ORI SCH (08:40)
[2020-04-22] MEDS: AMLODIPINE 10MG TABLET PO SCH (08:41)
[2020-04-22] MEDS: LACTOBACILLUS GG CAPSULE PO SCH (08:41)
[2020-04-22] MEDS: GUAIFENESIN 600MG ER TABLET PO SCH ×2 (08:41→21:00)
[2020-04-22] MEDS: ENOXAPARIN 30MG/0.3ML SYR SUBCUT SCH ×2 (08:41→22:48)
[2020-04-22] MEDS: THIAMINE HCL 100MG TABLET PO SCH (08:41)
[2020-04-22] MEDS: METOPROLOL TARTRATE 100MG TABLET PO SCH ×2 (08:41→22:48)
[2020-04-22] MEDS: FAMOTIDINE 20MG TABLET PO SCH (08:41)
[2020-04-22] MEDS: ZINC SULFATE 220 MG ( 50 ) CAPSULE PO SCH (08:41)
[2020-04-22 08:46] LABS: BG BASE EXCESS 2.1 mmol/L (-2.0-2.0); BG CARBOXYHEMOGLOBIN 0.1 % (0.5-1.5); BG DEOXYHEMOGLOBIN 9.7 % (0.0-5.0); BG FRACTION INSPIRED OXYGEN 80; BG HCO3 ACT 27.9 mmol/L (22.0-26.0); BG METHEMOGLOBIN 0.3 % (0.0-1.5); BG OXYGEN SATURATION 90.3 % (92.0-98.5); BG OXYHEMOGLOBIN 89.9 % (94.0-97.0); BG PCO2 47.7 mmHg (35.0-45.0); BG PH 7.385 (7.350-7.450); BG PO2 58.5 mmHg (75.0-100.0); BG SAMPLE SITE RIGHT RADIAL; BG TOTAL HEMOGLOBIN 14.4 g/dL (12.0-18.0); BG VENT MODE VENT - AC/VC
[2020-04-22] MEDS: ASCORBIC ACID 500 MG TABLET PO SCH ×2 (10:35→22:47)
[2020-04-23] VITALS (72 sets, daily range): BP systolic 107–178; BP diastolic 60–100
[2020-04-23] MEDS: BLOOD SUGAR DIAGNOSTIC STRIP TEST SCH ×4 (00:16→17:33)
[2020-04-23] MEDS: GUAIFENESIN-DM 200MG-20MG/10ML UDC PO SCH ×6 (00:21→20:00)
[2020-04-23] MEDS: IPRATROPIUM BROMIDE (0.02%) 0.5MG/2.5ML NEB HHN SCH ×2 (00:29→20:05)
[2020-04-23] MEDS: ALBUTEROL 6.7GM HFA INHALER ORI SCH ×2 (00:33→07:30)
[2020-04-23] MEDS: MIDAZOLAM HCL 100 MG in DEXT 5% WATER 80 ML IV PRN ×2 (04:32→14:54)
[2020-04-23] MEDS: INSULIN LISPRO 100 UNITS/ML SUBCUT SCH ×4 (06:45→17:34)
[2020-04-23 06:55] LABS: HEMOGLOBIN. 13.7 g/dL (14.0-18.0); MEAN CORPUSCULAR HEMOGLOBIN 21.4 pg (28.0-32.0); MEAN CORPUSCULAR VOLUME 70.5 fL (80.0-94.0); MEAN PLATELET VOLUME 8.3 fl (7.4-10.4); PLATELET 356 x1000/uL (130-400); RED BLOOD CELL COUNT 6.39 mill/uL (4.7-6.1); RED CELL DISTRIBUTION WIDTH 15.8 % (11.6-14.6)
[2020-04-23 06:56] LABS: CHLORIDE 110 mEq/L (98-107)
[2020-04-23] MEDS: CEFAZOLIN 1000MG PREMIX 50 ML IV SCH ×3 (07:30→23:20)
[2020-04-23] MEDS: FENTANYL CITRATE/PF 2,500 MCG in SODIUM CHLORIDE 0.9% 200 ML IV PRN ×2 (07:38→15:49)
[2020-04-23 08:40] LABS: PLATELET ESTIMATE NORMAL
[2020-04-23] MEDS: LACTOBACILLUS GG CAPSULE PO SCH (08:59)
[2020-04-23] MEDS: AMLODIPINE 10MG TABLET PO SCH (08:59)
[2020-04-23] MEDS: THIAMINE HCL 100MG TABLET PO SCH (08:59)
[2020-04-23] MEDS: FAMOTIDINE 20MG TABLET PO SCH (08:59)
[2020-04-23] MEDS: ZINC SULFATE 220 MG ( 50 ) CAPSULE PO SCH (08:59)
[2020-04-23] MEDS: METOPROLOL TARTRATE 100MG TABLET PO SCH ×2 (08:59→22:06)
[2020-04-23] MEDS: ENOXAPARIN 30MG/0.3ML SYR SUBCUT SCH ×2 (09:00→22:06)
[2020-04-23 09:29] LABS: BG BASE EXCESS -2.3 mmol/L (-2.0-2.0); BG CARBOXYHEMOGLOBIN 0.8 % (0.5-1.5); BG DEOXYHEMOGLOBIN 4.2 % (0.0-5.0); BG FRACTION INSPIRED OXYGEN 90; BG HCO3 ACT 26.1 mmol/L (22.0-26.0); BG METHEMOGLOBIN 0.3 % (0.0-1.5); BG OXYGEN SATURATION 95.8 % (92.0-98.5); BG OXYHEMOGLOBIN 94.7 % (94.0-97.0); BG PCO2 59.7 mmHg (35.0-45.0); BG PH 7.258 (7.350-7.450); BG PO2 87.6 mmHg (75.0-100.0); BG SAMPLE SITE RIGHT RADIAL; BG TOTAL HEMOGLOBIN 14.9 g/dL (12.0-18.0); BG VENT MODE VENT - AC
[2020-04-23] MEDS ORDERED: LACTULOSE 20G/30ML UDC PO NR (12:00)
[2020-04-23] MEDS: SODIUM CHLORIDE 0.45% 1,000 ML IV SCH (12:07)
[2020-04-24] VITALS (84 sets, daily range): BP systolic 117–175; BP diastolic 66–112
[2020-04-24] MEDS: GUAIFENESIN-DM 200MG-20MG/10ML UDC PO SCH ×6 (01:08→21:30)
[2020-04-24] MEDS: INSULIN LISPRO 100 UNITS/ML SUBCUT SCH ×4 (01:09→18:00)
[2020-04-24] MEDS: SODIUM CHLORIDE 0.45% 1,000 ML IV SCH ×2 (02:13→13:18)
[2020-04-24] MEDS: IPRATROPIUM BROMIDE (0.02%) 0.5MG/2.5ML NEB HHN SCH ×4 (02:46→20:39)
[2020-04-24] MEDS: MIDAZOLAM 100MG/100ML PREMIX IV PRN ×2 (03:54→13:11)
[2020-04-24] MEDS: FENTANYL CITRATE/PF 2,500 MCG in SODIUM CHLORIDE 0.9% 200 ML IV PRN ×2 (04:20→13:10)
[2020-04-24] MEDS: BLOOD SUGAR DIAGNOSTIC STRIP TEST SCH ×4 (06:06→18:07)
[2020-04-24 06:10] LABS: HEMATOCRIT. 44.4 % (42.0-52.0); HEMOGLOBIN. 13.1 g/dL (14.0-18.0); MEAN CORPUSCULAR HEMOGLOBIN 21.3 pg (28.0-32.0); MEAN CORPUSCULAR VOLUME 72.2 fL (80.0-94.0); MEAN PLATELET VOLUME 8.1 fl (7.4-10.4); PLATELET 300 x1000/uL (130-400); RED BLOOD CELL COUNT 6.15 mill/uL (4.7-6.1)
[2020-04-24 06:18] LABS: CHLORIDE 112 mEq/L (98-107)
[2020-04-24] MEDS: METOPROLOL TARTRATE 100MG TABLET PO SCH ×2 (07:29→21:34)
[2020-04-24] MEDS: CEFAZOLIN 1000MG PREMIX 50 ML IV SCH ×3 (07:30→23:16)
[2020-04-24] MEDS: ASCORBIC ACID 500 MG TABLET PO SCH (08:32)
[2020-04-24] MEDS: AMLODIPINE 10MG TABLET PO SCH (08:32)
[2020-04-24] MEDS: LACTOBACILLUS GG CAPSULE PO SCH (08:32)
[2020-04-24] MEDS: THIAMINE HCL 100MG TABLET PO SCH (08:32)
[2020-04-24] MEDS: ZINC SULFATE 220 MG ( 50 ) CAPSULE PO SCH (08:32)
[2020-04-24] MEDS: ENOXAPARIN 30MG/0.3ML SYR SUBCUT SCH ×2 (08:33→21:32)
[2020-04-24] MEDS: FAMOTIDINE 20MG TABLET PO SCH (08:33)
[2020-04-24 08:58] LABS: BG BASE EXCESS 2.4 mmol/L (-2.0-2.0); BG CARBOXYHEMOGLOBIN 0.4 % (0.5-1.5); BG DEOXYHEMOGLOBIN 1.8 % (0.0-5.0); BG FRACTION INSPIRED OXYGEN 90; BG HCO3 ACT 28.9 mmol/L (22.0-26.0); BG METHEMOGLOBIN 0.3 % (0.0-1.5); BG OXYGEN SATURATION 98.2 % (92.0-98.5); BG OXYHEMOGLOBIN 97.5 % (94.0-97.0); BG PCO2 52.6 mmHg (35.0-45.0); BG PH 7.358 (7.350-7.450); BG PO2 117.6 mmHg (75.0-100.0); BG SAMPLE SITE RIGHT RADIAL; BG TOTAL HEMOGLOBIN 13.8 g/dL (12.0-18.0); BG VENT MODE VENT - AC/VC
[2020-04-24 10:31] LABS: PLATELET ESTIMATE NORMAL
[2020-04-24] MEDS: METHYLPREDNISOLONE SOD SUCC 40 MG/ML VIAL IV SCH ×2 (13:18→21:33)
[2020-04-24] MEDS: ALBUTEROL 6.7GM HFA INHALER ORI SCH (20:39)
[2020-04-25] VITALS (85 sets, daily range): BP systolic 117–172; BP diastolic 59–107
[2020-04-25] MEDS: GUAIFENESIN-DM 200MG-20MG/10ML UDC PO SCH ×6 (00:16→20:37)
[2020-04-25] MEDS: BLOOD SUGAR DIAGNOSTIC STRIP TEST SCH ×4 (00:16→18:45)
[2020-04-25] MEDS: INSULIN LISPRO 100 UNITS/ML SUBCUT SCH ×4 (00:17→18:00)
[2020-04-25] MEDS: ALBUTEROL 6.7GM HFA INHALER ORI SCH (01:09)
[2020-04-25] MEDS: IPRATROPIUM BROMIDE (0.02%) 0.5MG/2.5ML NEB HHN SCH ×4 (01:09→20:59)
[2020-04-25] MEDS: MIDAZOLAM 100MG/100ML PREMIX IV PRN ×2 (01:18→16:21)
[2020-04-25] MEDS: SODIUM CHLORIDE 0.45% 1,000 ML IV SCH ×2 (04:01→16:09)
[2020-04-25] MEDS: FENTANYL CITRATE/PF 2,500 MCG in SODIUM CHLORIDE 0.9% 200 ML IV PRN ×2 (04:07→21:25)
[2020-04-25 05:38] LABS: HEMATOCRIT. 41.6 % (42.0-52.0); HEMOGLOBIN. 12.4 g/dL (14.0-18.0); MEAN CORPUSCULAR HEMOGLOBIN 21.1 pg (28.0-32.0); MEAN PLATELET VOLUME 8.5 fl (7.4-10.4); PLATELET 293 x1000/uL (130-400); RED BLOOD CELL COUNT 5.86 mill/uL (4.7-6.1); RED CELL DISTRIBUTION WIDTH 16.1 % (11.6-14.6)
[2020-04-25 05:42] LABS: CHLORIDE 113 mEq/L (98-107)
[2020-04-25] MEDS: METHYLPREDNISOLONE SOD SUCC 40 MG/ML VIAL IV SCH ×3 (06:27→20:37)
[2020-04-25] MEDS: METOPROLOL TARTRATE 100MG TABLET PO SCH ×2 (08:41→20:37)
[2020-04-25] MEDS: FAMOTIDINE 20MG TABLET PO SCH (08:41)
[2020-04-25] MEDS: ZINC SULFATE 220 MG ( 50 ) CAPSULE PO SCH (08:41)
[2020-04-25] MEDS: LACTOBACILLUS GG CAPSULE PO SCH (08:41)
[2020-04-25] MEDS: THIAMINE HCL 100MG TABLET PO SCH (08:41)
[2020-04-25] MEDS: ASCORBIC ACID 500 MG TABLET PO SCH (08:42)
[2020-04-25] MEDS: AMLODIPINE 10MG TABLET PO SCH (08:42)
[2020-04-25] MEDS: ENOXAPARIN 30MG/0.3ML SYR SUBCUT SCH ×2 (08:45→20:37)
[2020-04-25 09:16] LABS: BG BASE EXCESS 2.5 mmol/L (-2.0-2.0); BG CARBOXYHEMOGLOBIN 0.4 % (0.5-1.5); BG DEOXYHEMOGLOBIN 0.8 % (0.0-5.0); BG FRACTION INSPIRED OXYGEN 80; BG HCO3 ACT 25.8 mmol/L (22.0-26.0); BG METHEMOGLOBIN 0.3 % (0.0-1.5); BG OXYGEN SATURATION 99.2 % (92.0-98.5); BG OXYHEMOGLOBIN 98.5 % (94.0-97.0); BG PCO2 35.4 mmHg (35.0-45.0); BG PO2 186.1 mmHg (75.0-100.0); BG SAMPLE SITE RIGHT RADIAL; BG TOTAL HEMOGLOBIN 13.4 g/dL (12.0-18.0); BG VENT MODE VENT - AC/VC
[2020-04-25] MEDS: CEFAZOLIN 1000MG PREMIX 50 ML IV SCH ×3 (09:59→22:37)
[2020-04-25 12:50] LABS: PLATELET ESTIMATE NORMAL
[2020-04-25] MEDS: ACETAMINOPHEN 325MG TABLET PO PRN (20:48)
[2020-04-26] VITALS (46 sets, daily range): BP systolic 117–168; BP diastolic 63–109
[2020-04-26] MEDS: INSULIN LISPRO 100 UNITS/ML SUBCUT SCH ×4 (00:13→18:52)
[2020-04-26] MEDS: MIDAZOLAM 100MG/100ML PREMIX IV PRN ×2 (01:58→12:41)
[2020-04-26] MEDS: IPRATROPIUM BROMIDE (0.02%) 0.5MG/2.5ML NEB HHN SCH ×4 (02:50→21:10)
[2020-04-26] MEDS: GUAIFENESIN-DM 200MG-20MG/10ML UDC PO SCH ×6 (04:00→20:00)
[2020-04-26] MEDS: FENTANYL CITRATE/PF 2,500 MCG in SODIUM CHLORIDE 0.9% 200 ML IV PRN ×3 (04:47→21:48)
[2020-04-26] MEDS: METHYLPREDNISOLONE SOD SUCC 40 MG/ML VIAL IV SCH ×3 (05:08→21:25)
[2020-04-26] MEDS: BLOOD SUGAR DIAGNOSTIC STRIP TEST SCH ×5 (05:55→23:41)
[2020-04-26] MEDS: CEFAZOLIN 1000MG PREMIX 50 ML IV SCH ×2 (06:20→15:20)
[2020-04-26 06:48] LABS: CHLORIDE 114 mEq/L (98-107)
[2020-04-26 06:51] LABS: HEMATOCRIT. 40.1 % (42.0-52.0); HEMOGLOBIN. 11.9 g/dL (14.0-18.0); MEAN CORPUSCULAR HEMOGLOBIN 21.3 pg (28.0-32.0); MEAN CORPUSCULAR VOLUME 71.6 fL (80.0-94.0); MEAN PLATELET VOLUME 8.3 fl (7.4-10.4); PLATELET 267 x1000/uL (130-400)
[2020-04-26] MEDS: ALBUTEROL 6.7GM HFA INHALER ORI SCH ×3 (07:30→13:49)
[2020-04-26] MEDS: LACTOBACILLUS GG CAPSULE PO SCH (09:15)
[2020-04-26] MEDS: FAMOTIDINE 20MG TABLET PO SCH (09:16)
[2020-04-26] MEDS: THIAMINE HCL 100MG TABLET PO SCH (09:16)
[2020-04-26] MEDS: ASCORBIC ACID 500 MG TABLET PO SCH (09:16)
[2020-04-26] MEDS: AMLODIPINE 10MG TABLET PO SCH (09:17)
[2020-04-26] MEDS: METOPROLOL TARTRATE 100MG TABLET PO SCH ×2 (09:17→21:26)
[2020-04-26] MEDS: ZINC SULFATE 220 MG ( 50 ) CAPSULE PO SCH (09:17)
[2020-04-26] MEDS: ENOXAPARIN 30MG/0.3ML SYR SUBCUT SCH (09:23)
[2020-04-26 10:39] LABS: BG BASE EXCESS 4.7 mmol/L (-2.0-2.0); BG CARBOXYHEMOGLOBIN 0.3 % (0.5-1.5); BG DEOXYHEMOGLOBIN 2.8 % (0.0-5.0); BG FRACTION INSPIRED OXYGEN 75; BG HCO3 ACT 31.8 mmol/L (22.0-26.0); BG METHEMOGLOBIN 0.2 % (0.0-1.5); BG OXYGEN SATURATION 97.2 % (92.0-98.5); BG OXYHEMOGLOBIN 96.7 % (94.0-97.0); BG PCO2 58.2 mmHg (35.0-45.0); BG PH 7.355 (7.350-7.450); BG PO2 91.9 mmHg (75.0-100.0); BG SAMPLE SITE RIGHT RADIAL; BG TOTAL HEMOGLOBIN 13.1 g/dL (12.0-18.0); BG VENT MODE PRVC
[2020-04-26 18:25] LABS: PLATELET ESTIMATE NORMAL
[2020-04-26] MEDS: ENOXAPARIN 40MG/0.4ML SYR SUBCUT SCH (21:25)
[2020-04-27] VITALS (54 sets, daily range): BP systolic 121–180; BP diastolic 64–115
[2020-04-27] MEDS: MIDAZOLAM 100MG/100ML PREMIX IV PRN ×3 (00:25→20:58)
[2020-04-27] MEDS: GUAIFENESIN-DM 200MG-20MG/10ML UDC PO SCH ×6 (00:38→21:07)
[2020-04-27] MEDS: INSULIN LISPRO 100 UNITS/ML SUBCUT SCH ×3 (00:39→17:58)
[2020-04-27] MEDS: IPRATROPIUM BROMIDE (0.02%) 0.5MG/2.5ML NEB HHN SCH ×3 (04:15→20:50)
[2020-04-27 05:28] LABS: HEMOGLOBIN. 11.1 g/dL (14.0-18.0); MEAN CORPUSCULAR HEMOGLOBIN 21.1 pg (28.0-32.0); MEAN CORPUSCULAR VOLUME 72.2 fL (80.0-94.0); MEAN PLATELET VOLUME 8.5 fl (7.4-10.4); PLATELET 210 x1000/uL (130-400); RED BLOOD CELL COUNT 5.26 mill/uL (4.7-6.1); RED CELL DISTRIBUTION WIDTH 15.8 % (11.6-14.6)
[2020-04-27 05:36] LABS: CHLORIDE 113 mEq/L (98-107)
[2020-04-27] MEDS: BLOOD SUGAR DIAGNOSTIC STRIP TEST SCH ×3 (06:00→18:01)
[2020-04-27] MEDS: FENTANYL CITRATE/PF 2,500 MCG in SODIUM CHLORIDE 0.9% 200 ML IV PRN ×3 (07:13→20:27)
[2020-04-27] MEDS ORDERED: NOREPINEPHRINE 32 MG in DEXT 5% WATER 218 ML IV PRN (08:45)
[2020-04-27] MEDS: LACTOBACILLUS GG CAPSULE PO SCH (09:26)
[2020-04-27] MEDS: ENOXAPARIN 40MG/0.4ML SYR SUBCUT SCH ×2 (09:26→21:10)
[2020-04-27] MEDS: ZINC SULFATE 220 MG ( 50 ) CAPSULE PO SCH (09:26)
[2020-04-27] MEDS: METHYLPREDNISOLONE SOD SUCC 40 MG/ML VIAL IV SCH ×3 (09:26→21:07)
[2020-04-27] MEDS: ASCORBIC ACID 500 MG TABLET PO SCH (09:26)
[2020-04-27] MEDS: THIAMINE HCL 100MG TABLET PO SCH (09:27)
[2020-04-27] MEDS: AMLODIPINE 10MG TABLET PO SCH (09:27)
[2020-04-27] MEDS: FAMOTIDINE 20MG TABLET PO SCH (09:27)
[2020-04-27] MEDS: METOPROLOL TARTRATE 100MG TABLET PO SCH ×2 (09:27→21:07)
[2020-04-27 10:09] LABS: BG BASE EXCESS 8.2 mmol/L (-2.0-2.0); BG CARBOXYHEMOGLOBIN 0.3 % (0.5-1.5); BG DEOXYHEMOGLOBIN 3.3 % (0.0-5.0); BG FRACTION INSPIRED OXYGEN 75; BG HCO3 ACT 34.7 mmol/L (22.0-26.0); BG OXYGEN SATURATION 96.7 % (92.0-98.5); BG OXYHEMOGLOBIN 96.4 % (94.0-97.0); BG PCO2 56.9 mmHg (35.0-45.0); BG PH 7.403 (7.350-7.450); BG PO2 86.1 mmHg (75.0-100.0); BG SAMPLE SITE RIGHT RADIAL; BG TOTAL HEMOGLOBIN 12.8 g/dL (12.0-18.0); BG TOTAL RESPIRATORY RATE 31 b/min; BG VENT MODE PRVC
[2020-04-27 11:12] LABS: ATYPICAL LYMPHOCYTES 1
[2020-04-27 11:13] LABS: PLATELET ESTIMATE NORMAL
[2020-04-27] MEDS: LACTULOSE 20G/30ML UDC PO PRN (12:50)
[2020-04-28] VITALS (47 sets, daily range): BP systolic 123–160; BP diastolic 68–94
[2020-04-28] MEDS: GUAIFENESIN-DM 200MG-20MG/10ML UDC PO SCH ×7 (00:35→23:27)
[2020-04-28] MEDS: INSULIN LISPRO 100 UNITS/ML SUBCUT SCH ×5 (00:36→23:32)
[2020-04-28] MEDS: IPRATROPIUM BROMIDE (0.02%) 0.5MG/2.5ML NEB HHN SCH ×4 (03:20→20:30)
[2020-04-28] MEDS: FENTANYL CITRATE/PF 2,500 MCG in SODIUM CHLORIDE 0.9% 200 ML IV PRN ×3 (04:26→22:26)
[2020-04-28 05:44] LABS: CHLORIDE 109 mEq/L (98-107)
[2020-04-28 05:48] LABS: BASOPHILS % 1.1 % (0.0-2.0); EOSINOPHILS % 0.1 % (0.0-5.0); HEMATOCRIT. 40.3 % (42.0-52.0); LYMPHOCYTES % 8.4 % (20.0-50.0); MEAN CORPUSCULAR HEMOGLOBIN 21.4 pg (28.0-32.0); MEAN CORPUSCULAR VOLUME 71.8 fL (80.0-94.0); MEAN PLATELET VOLUME 8.7 fl (7.4-10.4); MONOCYTES % 12.4 % (2.0-8.0); PLATELET 222 x1000/uL (130-400); RED BLOOD CELL COUNT 5.62 mill/uL (4.7-6.1); RED CELL DISTRIBUTION WIDTH 15.9 % (11.6-14.6)
[2020-04-28] MEDS: BLOOD SUGAR DIAGNOSTIC STRIP TEST SCH ×5 (06:00→23:12)
[2020-04-28] MEDS: METHYLPREDNISOLONE SOD SUCC 40 MG/ML VIAL IV SCH ×3 (06:10→21:05)
[2020-04-28] MEDS: MIDAZOLAM 100MG/100ML PREMIX IV PRN ×2 (06:49→16:31)
[2020-04-28] MEDS: THIAMINE HCL 100MG TABLET PO SCH (08:02)
[2020-04-28] MEDS: LACTOBACILLUS GG CAPSULE PO SCH (08:02)
[2020-04-28] MEDS: ASCORBIC ACID 500 MG TABLET PO SCH (08:02)
[2020-04-28] MEDS: AMLODIPINE 10MG TABLET PO SCH (08:03)
[2020-04-28] MEDS: ZINC SULFATE 220 MG ( 50 ) CAPSULE PO SCH (08:03)
[2020-04-28] MEDS: METOPROLOL TARTRATE 100MG TABLET PO SCH ×2 (08:03→20:42)
[2020-04-28] MEDS: FAMOTIDINE 20MG TABLET PO SCH (08:03)
[2020-04-28] MEDS: ENOXAPARIN 40MG/0.4ML SYR SUBCUT SCH ×2 (08:04→20:43)
[2020-04-28 09:11] LABS: BG BASE EXCESS 10.7 mmol/L (-2.0-2.0); BG CARBOXYHEMOGLOBIN 0.5 % (0.5-1.5); BG DEOXYHEMOGLOBIN 0.8 % (0.0-5.0); BG FRACTION INSPIRED OXYGEN 75; BG HCO3 ACT 37.2 mmol/L (22.0-26.0); BG METHEMOGLOBIN 0.3 % (0.0-1.5); BG OXYGEN SATURATION 99.2 % (92.0-98.5); BG OXYHEMOGLOBIN 98.4 % (94.0-97.0); BG PCO2 57.5 mmHg (35.0-45.0); BG PH 7.429 (7.350-7.450); BG PO2 181.1 mmHg (75.0-100.0); BG SAMPLE SITE RIGHT RADIAL; BG TOTAL HEMOGLOBIN 13.3 g/dL (12.0-18.0); BG VENT MODE VENT - AC/PRVC
[2020-04-29] VITALS (70 sets, daily range): BP systolic 127–175; BP diastolic 67–106
[2020-04-29] MEDS: IPRATROPIUM BROMIDE (0.02%) 0.5MG/2.5ML NEB HHN SCH ×4 (02:29→20:25)
[2020-04-29] MEDS ORDERED: MIDAZOLAM 100MG/100ML PMX 100 ML IV PRN (02:45)
[2020-04-29] MEDS ORDERED: MIDAZOLAM HCL 100 MG in DEXT 5% WATER 100 ML IV PRN (03:00)
[2020-04-29] MEDS: GUAIFENESIN-DM 200MG-20MG/10ML UDC PO SCH ×6 (04:09→23:23)
[2020-04-29] MEDS: BLOOD SUGAR DIAGNOSTIC STRIP TEST SCH ×4 (05:27→23:25)
[2020-04-29] MEDS: INSULIN LISPRO 100 UNITS/ML SUBCUT SCH ×4 (05:31→23:24)
[2020-04-29 05:48] LABS: BASOPHILS % 0.5 % (0.0-2.0); EOSINOPHILS % 0.1 % (0.0-5.0); HEMATOCRIT. 36.7 % (42.0-52.0); HEMOGLOBIN. 11.1 g/dL (14.0-18.0); LYMPHOCYTES % 10.1 % (20.0-50.0); MEAN CORPUSCULAR HEMOGLOBIN 21.4 pg (28.0-32.0); MEAN CORPUSCULAR VOLUME 70.8 fL (80.0-94.0); MEAN PLATELET VOLUME 8.8 fl (7.4-10.4); MONOCYTES % 14.6 % (2.0-8.0); NEUTROPHILS % 74.7 % (40.0-76.0); PLATELET 180 x1000/uL (130-400); RED BLOOD CELL COUNT 5.18 mill/uL (4.7-6.1); RED CELL DISTRIBUTION WIDTH 15.2 % (11.6-14.6)
[2020-04-29 06:00] LABS: CHLORIDE 109 mEq/L (98-107)
[2020-04-29] MEDS: METHYLPREDNISOLONE SOD SUCC 125 MG/2 ML VIAL IV SCH ×3 (06:49→21:17)
[2020-04-29] MEDS: FENTANYL CITRATE/PF 2,500 MCG in SODIUM CHLORIDE 0.9% 200 ML IV PRN ×2 (07:29→16:18)
[2020-04-29 08:58] LABS: BG BASE EXCESS 6.8 mmol/L (-2.0-2.0); BG CARBOXYHEMOGLOBIN 0.3 % (0.5-1.5); BG DEOXYHEMOGLOBIN 1.1 % (0.0-5.0); BG FRACTION INSPIRED OXYGEN 75; BG HCO3 ACT 31.6 mmol/L (22.0-26.0); BG METHEMOGLOBIN 0.3 % (0.0-1.5); BG OXYGEN SATURATION 98.9 % (92.0-98.5); BG OXYHEMOGLOBIN 98.3 % (94.0-97.0); BG PCO2 45.5 mmHg (35.0-45.0); BG PH 7.459 (7.350-7.450); BG PO2 159.8 mmHg (75.0-100.0); BG SAMPLE SITE RIGHT RADIAL; BG TOTAL HEMOGLOBIN 11.9 g/dL (12.0-18.0); BG VENT MODE VENT - AC/PRVC
[2020-04-29] MEDS: DOCUSATE SODIUM SUGAR FREE 100MG/10ML UDC NG SCH (09:21)
[2020-04-29] MEDS: ZINC SULFATE 220 MG ( 50 ) CAPSULE PO SCH (09:22)
[2020-04-29] MEDS: ASCORBIC ACID 500 MG TABLET PO SCH (09:22)
[2020-04-29] MEDS: THIAMINE HCL 100MG TABLET PO SCH (09:22)
[2020-04-29] MEDS: AMLODIPINE 10MG TABLET PO SCH (09:22)
[2020-04-29] MEDS: LACTOBACILLUS GG CAPSULE PO SCH (09:22)
[2020-04-29] MEDS: FAMOTIDINE 20MG TABLET PO SCH (09:22)
[2020-04-29] MEDS: METOPROLOL TARTRATE 100MG TABLET PO SCH ×2 (09:23→20:39)
[2020-04-29] MEDS: ENOXAPARIN 40MG/0.4ML SYR SUBCUT SCH ×2 (09:24→20:40)
[2020-04-29] MEDS: MIDAZOLAM 100MG/100ML PREMIX IV PRN ×2 (12:00→22:56)
[2020-04-29] MEDS: LACTULOSE 20G/30ML UDC PO PRN (16:32)
[2020-04-29] MEDS: ALBUTEROL 6.7GM HFA INHALER ORI SCH (20:25)
[2020-04-30] VITALS (72 sets, daily range): BP systolic 108–164; BP diastolic 50–112
[2020-04-30] MEDS: FENTANYL CITRATE/PF 2,500 MCG in SODIUM CHLORIDE 0.9% 200 ML IV PRN ×4 (00:55→23:37)
[2020-04-30] MEDS: ALBUTEROL 6.7GM HFA INHALER ORI SCH (01:08)
[2020-04-30] MEDS: IPRATROPIUM BROMIDE (0.02%) 0.5MG/2.5ML NEB HHN SCH ×3 (01:08→21:08)
[2020-04-30] MEDS: GUAIFENESIN-DM 200MG-20MG/10ML UDC PO SCH ×6 (03:12→23:36)
[2020-04-30] MEDS: BLOOD SUGAR DIAGNOSTIC STRIP TEST SCH ×4 (05:10→23:19)
[2020-04-30] MEDS: METHYLPREDNISOLONE SOD SUCC 125 MG/2 ML VIAL IV SCH ×3 (05:30→21:07)
[2020-04-30] MEDS: INSULIN LISPRO 100 UNITS/ML SUBCUT SCH ×4 (05:31→23:36)
[2020-04-30 05:41] LABS: BASOPHILS % 0.6 % (0.0-2.0); EOSINOPHILS % 0.1 % (0.0-5.0); LYMPHOCYTES % 7.5 % (20.0-50.0); MEAN CORPUSCULAR HEMOGLOBIN 21.5 pg (28.0-32.0); MEAN PLATELET VOLUME 9.1 fl (7.4-10.4); MONOCYTES % 13.1 % (2.0-8.0); NEUTROPHILS % 78.7 % (40.0-76.0); PLATELET 170 x1000/uL (130-400); RED BLOOD CELL COUNT 5.13 mill/uL (4.7-6.1); RED CELL DISTRIBUTION WIDTH 15.7 % (11.6-14.6)
[2020-04-30 05:46] LABS: CHLORIDE 107 mEq/L (98-107)
[2020-04-30] MEDS: MIDAZOLAM 100MG/100ML PREMIX IV PRN (09:03)
[2020-04-30] MEDS: ASCORBIC ACID 500 MG TABLET PO SCH (09:19)
[2020-04-30] MEDS: FAMOTIDINE 20MG TABLET PO SCH (09:19)
[2020-04-30] MEDS: ZINC SULFATE 220 MG ( 50 ) CAPSULE PO SCH (09:19)
[2020-04-30] MEDS: AMLODIPINE 10MG TABLET PO SCH (09:20)
[2020-04-30] MEDS: METOPROLOL TARTRATE 100MG TABLET PO SCH ×2 (09:20→20:37)
[2020-04-30] MEDS: LACTOBACILLUS GG CAPSULE PO SCH (09:20)
[2020-04-30] MEDS: DOCUSATE SODIUM SUGAR FREE 100MG/10ML UDC NG SCH (09:20)
[2020-04-30] MEDS: ENOXAPARIN 40MG/0.4ML SYR SUBCUT SCH ×2 (09:21→20:37)
[2020-04-30 09:34] LABS: BG BASE EXCESS 5.1 mmol/L (-2.0-2.0); BG CARBOXYHEMOGLOBIN 0.6 % (0.5-1.5); BG DEOXYHEMOGLOBIN 2.8 % (0.0-5.0); BG FRACTION INSPIRED OXYGEN 65; BG HCO3 ACT 30.9 mmol/L (22.0-26.0); BG METHEMOGLOBIN 0.1 % (0.0-1.5); BG OXYGEN SATURATION 97.2 % (92.0-98.5); BG OXYHEMOGLOBIN 96.5 % (94.0-97.0); BG PCO2 50.3 mmHg (35.0-45.0); BG PH 7.406 (7.350-7.450); BG PO2 89.6 mmHg (75.0-100.0); BG SAMPLE SITE RIGHT RADIAL; BG TOTAL HEMOGLOBIN 12.7 g/dL (12.0-18.0); BG VENT MODE VENT - AC/PRVC
[2020-04-30] MEDS: THIAMINE HCL 100MG TABLET PO SCH (09:45)
[2020-05-01] VITALS (91 sets, daily range): BP systolic 116–157; BP diastolic 60–103
[2020-05-01] MEDS: IPRATROPIUM BROMIDE (0.02%) 0.5MG/2.5ML NEB HHN SCH ×4 (00:12→20:46)
[2020-05-01] MEDS: GUAIFENESIN-DM 200MG-20MG/10ML UDC PO SCH ×6 (03:10→23:33)
[2020-05-01] MEDS: MIDAZOLAM 100MG/100ML PREMIX IV PRN ×3 (03:49→23:34)
[2020-05-01] MEDS: METHYLPREDNISOLONE SOD SUCC 125 MG/2 ML VIAL IV SCH ×3 (05:27→21:13)
[2020-05-01 05:40] LABS: HEMOGLOBIN. 11.3 g/dL (14.0-18.0); MEAN CORPUSCULAR HEMOGLOBIN 21.8 pg (28.0-32.0); MEAN CORPUSCULAR VOLUME 71.2 fL (80.0-94.0); MEAN PLATELET VOLUME 9.4 fl (7.4-10.4); PLATELET 82 x1000/uL (130-400); RED BLOOD CELL COUNT 5.19 mill/uL (4.7-6.1); RED CELL DISTRIBUTION WIDTH 15.9 % (11.6-14.6)
[2020-05-01] MEDS: INSULIN LISPRO 100 UNITS/ML SUBCUT SCH ×4 (05:45→23:35)
[2020-05-01] MEDS: BLOOD SUGAR DIAGNOSTIC STRIP TEST SCH ×4 (05:46→23:11)
[2020-05-01 06:13] LABS: CHLORIDE 104 mEq/L (98-107)
[2020-05-01] MEDS: FENTANYL CITRATE/PF 2,500 MCG in SODIUM CHLORIDE 0.9% 200 ML IV PRN ×3 (06:57→22:27)
[2020-05-01] MEDS: DOCUSATE SODIUM SUGAR FREE 100MG/10ML UDC NG SCH (08:57)
[2020-05-01] MEDS: METOPROLOL TARTRATE 100MG TABLET PO SCH ×2 (08:57→20:49)
[2020-05-01] MEDS: FAMOTIDINE 20MG TABLET PO SCH (08:57)
[2020-05-01] MEDS: ZINC SULFATE 220 MG ( 50 ) CAPSULE PO SCH (08:57)
[2020-05-01] MEDS: ASCORBIC ACID 500 MG TABLET PO SCH (08:57)
[2020-05-01] MEDS: LACTOBACILLUS GG CAPSULE PO SCH (08:58)
[2020-05-01] MEDS: ENOXAPARIN 40MG/0.4ML SYR SUBCUT SCH (08:58)
[2020-05-01] MEDS: AMLODIPINE 10MG TABLET PO SCH (08:58)
[2020-05-01] MEDS: THIAMINE HCL 100MG TABLET PO SCH (08:58)
[2020-05-01 09:28] LABS: BG BASE EXCESS 6.5 mmol/L (-2.0-2.0); BG CARBOXYHEMOGLOBIN 0.1 % (0.5-1.5); BG DEOXYHEMOGLOBIN 1.5 % (0.0-5.0); BG FRACTION INSPIRED OXYGEN 65; BG METHEMOGLOBIN 0.3 % (0.0-1.5); BG OXYGEN SATURATION 98.5 % (92.0-98.5); BG OXYHEMOGLOBIN 98.1 % (94.0-97.0); BG PH 7.424 (7.350-7.450); BG PO2 136.9 mmHg (75.0-100.0); BG SAMPLE SITE RIGHT RADIAL; BG TOTAL HEMOGLOBIN 11.4 g/dL (12.0-18.0); BG VENT MODE VENT - AC/PRVC
[2020-05-01 14:12] LABS: PLATELET ESTIMATE DECREASED
[2020-05-02] VITALS (84 sets, daily range): BP systolic 97–196; BP diastolic 54–110
[2020-05-02] MEDS: IPRATROPIUM BROMIDE (0.02%) 0.5MG/2.5ML NEB HHN SCH ×3 (02:23→21:30)
[2020-05-02] MEDS: GUAIFENESIN-DM 200MG-20MG/10ML UDC PO SCH ×5 (04:12→20:00)
[2020-05-02 05:13] LABS: MEAN CORPUSCULAR HEMOGLOBIN 21.7 pg (28.0-32.0); MEAN CORPUSCULAR VOLUME 71.2 fL (80.0-94.0); MEAN PLATELET VOLUME 9.6 fl (7.4-10.4); PLATELET 176 x1000/uL (130-400); RED BLOOD CELL COUNT 5.05 mill/uL (4.7-6.1); RED CELL DISTRIBUTION WIDTH 15.7 % (11.6-14.6)
[2020-05-02 05:22] LABS: CHLORIDE 103 mEq/L (98-107)
[2020-05-02] MEDS: INSULIN LISPRO 100 UNITS/ML SUBCUT SCH ×3 (05:42→17:40)
[2020-05-02] MEDS: BLOOD SUGAR DIAGNOSTIC STRIP TEST SCH ×3 (06:07→17:30)
[2020-05-02] MEDS: METHYLPREDNISOLONE SOD SUCC 125 MG/2 ML VIAL IV SCH ×3 (06:12→22:23)
[2020-05-02] MEDS: FENTANYL CITRATE/PF 2,500 MCG in SODIUM CHLORIDE 0.9% 200 ML IV PRN ×3 (07:38→22:29)
[2020-05-02] MEDS: MIDAZOLAM 100MG/100ML PREMIX IV PRN ×2 (08:12→17:44)
[2020-05-02] MEDS: ZINC SULFATE 220 MG ( 50 ) CAPSULE PO SCH (08:32)
[2020-05-02] MEDS: AMLODIPINE 10MG TABLET PO SCH (08:32)
[2020-05-02] MEDS: FAMOTIDINE 20MG TABLET PO SCH (08:32)
[2020-05-02] MEDS: DOCUSATE SODIUM SUGAR FREE 100MG/10ML UDC NG SCH (08:32)
[2020-05-02] MEDS: ASCORBIC ACID 500 MG TABLET PO SCH (08:32)
[2020-05-02] MEDS: LACTOBACILLUS GG CAPSULE PO SCH (08:32)
[2020-05-02] MEDS: THIAMINE HCL 100MG TABLET PO SCH (08:33)
[2020-05-02] MEDS: METOPROLOL TARTRATE 100MG TABLET PO SCH ×2 (08:34→21:43)
[2020-05-02 09:05] LABS: BG BASE EXCESS 6.7 mmol/L (-2.0-2.0); BG CARBOXYHEMOGLOBIN 0.3 % (0.5-1.5); BG DEOXYHEMOGLOBIN 2.4 % (0.0-5.0); BG HCO3 ACT 31.2 mmol/L (22.0-26.0); BG METHEMOGLOBIN 0.1 % (0.0-1.5); BG OXYGEN SATURATION 97.6 % (92.0-98.5); BG OXYHEMOGLOBIN 97.2 % (94.0-97.0); BG PCO2 43.9 mmHg (35.0-45.0); BG PH 7.469 (7.350-7.450); BG PO2 99.5 mmHg (75.0-100.0); BG SAMPLE SITE RIGHT RADIAL; BG TOTAL HEMOGLOBIN 11.2 g/dL (12.0-18.0); BG VENT MODE VENT - AC
[2020-05-02 09:08] LABS: BG FRACTION INSPIRED OXYGEN 50; BG PEEP (cmH2O) 16 cmH2O; BG VENT RATE 34 set
[2020-05-02 09:44] LABS: PLATELET ESTIMATE NORMAL
[2020-05-02] MEDS: ALBUTEROL 6.7GM HFA INHALER ORI SCH (21:30)
[2020-05-02] MEDS: ENOXAPARIN 40MG/0.4ML SYR SUBCUT SCH (21:40)
[2020-05-03] VITALS (75 sets, daily range): BP systolic 107–188; BP diastolic 64–124
[2020-05-03] MEDS: GUAIFENESIN-DM 200MG-20MG/10ML UDC PO SCH ×6 (01:06→22:03)
[2020-05-03] MEDS: ALBUTEROL 6.7GM HFA INHALER ORI SCH (02:45)
[2020-05-03] MEDS: MIDAZOLAM 100MG/100ML PREMIX IV PRN ×3 (02:47→18:21)
[2020-05-03] MEDS: IPRATROPIUM BROMIDE (0.02%) 0.5MG/2.5ML NEB HHN SCH ×4 (03:46→20:42)
[2020-05-03 05:59] LABS: CHLORIDE 104 mEq/L (98-107)
[2020-05-03] MEDS: BLOOD SUGAR DIAGNOSTIC STRIP TEST SCH ×4 (06:00→18:07)
[2020-05-03] MEDS: INSULIN LISPRO 100 UNITS/ML SUBCUT SCH ×4 (06:00→18:23)
[2020-05-03 06:03] LABS: HEMATOCRIT. 34.9 % (42.0-52.0); HEMOGLOBIN. 10.6 g/dL (14.0-18.0); MEAN CORPUSCULAR HEMOGLOBIN 21.8 pg (28.0-32.0); MEAN PLATELET VOLUME 9.8 fl (7.4-10.4); PLATELET 161 x1000/uL (130-400); RED BLOOD CELL COUNT 4.85 mill/uL (4.7-6.1); RED CELL DISTRIBUTION WIDTH 15.8 % (11.6-14.6)
[2020-05-03] MEDS: FENTANYL CITRATE/PF 2,500 MCG in SODIUM CHLORIDE 0.9% 200 ML IV PRN ×4 (06:05→22:58)
[2020-05-03] MEDS: METHYLPREDNISOLONE SOD SUCC 125 MG/2 ML VIAL IV SCH ×3 (07:19→22:06)
[2020-05-03] MEDS: AMLODIPINE 10MG TABLET PO SCH (09:01)
[2020-05-03] MEDS: ZINC SULFATE 220 MG ( 50 ) CAPSULE PO SCH (09:01)
[2020-05-03] MEDS: FAMOTIDINE 20MG TABLET PO SCH (09:01)
[2020-05-03] MEDS: LACTOBACILLUS GG CAPSULE PO SCH (09:01)
[2020-05-03] MEDS: ASCORBIC ACID 500 MG TABLET PO SCH (09:01)
[2020-05-03] MEDS: DOCUSATE SODIUM SUGAR FREE 100MG/10ML UDC NG SCH (09:01)
[2020-05-03] MEDS: ENOXAPARIN 40MG/0.4ML SYR SUBCUT SCH ×2 (09:02→22:05)
[2020-05-03] MEDS: THIAMINE HCL 100MG TABLET PO SCH (09:02)
[2020-05-03] MEDS: METOPROLOL TARTRATE 100MG TABLET PO SCH ×2 (09:03→21:00)
[2020-05-03 10:18] LABS: BG BASE EXCESS 8.7 mmol/L (-2.0-2.0); BG CARBOXYHEMOGLOBIN 0.7 % (0.5-1.5); BG DEOXYHEMOGLOBIN 3.1 % (0.0-5.0); BG HCO3 ACT 31.1 mmol/L (22.0-26.0); BG METHEMOGLOBIN 0.3 % (0.0-1.5); BG OXYGEN SATURATION 96.9 % (92.0-98.5); BG OXYHEMOGLOBIN 95.9 % (94.0-97.0); BG PH 7.566 (7.350-7.450); BG PO2 74.2 mmHg (75.0-100.0); BG SAMPLE SITE LEFT RADIAL; BG TOTAL HEMOGLOBIN 12.4 g/dL (12.0-18.0); BG VENT MODE VENT- PRVC
[2020-05-03 14:54] LABS: PLATELET ESTIMATE NORMAL
[2020-05-04] VITALS (87 sets, daily range): BP systolic 110–195; BP diastolic 64–128
[2020-05-04] MEDS: GUAIFENESIN-DM 200MG-20MG/10ML UDC PO SCH ×6 (00:44→21:08)
[2020-05-04] MEDS: INSULIN LISPRO 100 UNITS/ML SUBCUT SCH ×4 (00:44→18:08)
[2020-05-04] MEDS: IPRATROPIUM BROMIDE (0.02%) 0.5MG/2.5ML NEB HHN SCH ×4 (02:21→20:48)
[2020-05-04] MEDS: METHYLPREDNISOLONE SOD SUCC 125 MG/2 ML VIAL IV SCH ×3 (05:37→21:09)
[2020-05-04 05:52] LABS: BASOPHILS % 0.4 % (0.0-2.0); HEMATOCRIT. 31.2 % (42.0-52.0); HEMOGLOBIN. 9.8 g/dL (14.0-18.0); LYMPHOCYTES % 7.8 % (20.0-50.0); MEAN CORPUSCULAR VOLUME 70.1 fL (80.0-94.0); MEAN PLATELET VOLUME 9.3 fl (7.4-10.4); MONOCYTES % 13.7 % (2.0-8.0); NEUTROPHILS % 78.1 % (40.0-76.0); PLATELET 170 x1000/uL (130-400); RED BLOOD CELL COUNT 4.45 mill/uL (4.7-6.1); RED CELL DISTRIBUTION WIDTH 16.1 % (11.6-14.6)
[2020-05-04] MEDS: BLOOD SUGAR DIAGNOSTIC STRIP TEST SCH ×5 (06:00→23:59)
[2020-05-04 06:01] LABS: CHLORIDE 103 mEq/L (98-107)
[2020-05-04] MEDS: MIDAZOLAM 100MG/100ML PREMIX IV PRN (07:59)
[2020-05-04] MEDS: FENTANYL CITRATE/PF 2,500 MCG in SODIUM CHLORIDE 0.9% 200 ML IV PRN ×3 (08:00→21:55)
[2020-05-04] MEDS: ENOXAPARIN 40MG/0.4ML SYR SUBCUT SCH ×2 (09:00→09:30)
[2020-05-04] MEDS: DOCUSATE SODIUM SUGAR FREE 100MG/10ML UDC NG SCH (09:27)
[2020-05-04] MEDS: ZINC SULFATE 220 MG ( 50 ) CAPSULE PO SCH (09:28)
[2020-05-04] MEDS: ASCORBIC ACID 500 MG TABLET PO SCH (09:28)
[2020-05-04] MEDS: AMLODIPINE 10MG TABLET PO SCH (09:28)
[2020-05-04] MEDS: LACTOBACILLUS GG CAPSULE PO SCH (09:28)
[2020-05-04] MEDS: THIAMINE HCL 100MG TABLET PO SCH (09:28)
[2020-05-04] MEDS: FAMOTIDINE 20MG TABLET PO SCH (09:28)
[2020-05-04] MEDS: METOPROLOL TARTRATE 100MG TABLET PO SCH ×2 (09:29→21:10)
[2020-05-04 10:17] LABS: BG BASE EXCESS 3.3 mmol/L (-2.0-2.0); BG CARBOXYHEMOGLOBIN 0.8 % (0.5-1.5); BG DEOXYHEMOGLOBIN 9.6 % (0.0-5.0); BG FRACTION INSPIRED OXYGEN 50; BG HCO3 ACT 28.5 mmol/L (22.0-26.0); BG OXYGEN SATURATION 90.3 % (92.0-98.5); BG OXYHEMOGLOBIN 89.6 % (94.0-97.0); BG PCO2 45.6 mmHg (35.0-45.0); BG PH 7.413 (7.350-7.450); BG PO2 59.9 mmHg (75.0-100.0); BG SAMPLE SITE RIGHT RADIAL; BG TOTAL HEMOGLOBIN 11.8 g/dL (12.0-18.0); BG TOTAL RESPIRATORY RATE 34 b/min; BG VENT MODE VENT- PRVC
[2020-05-04] MEDS ORDERED: FENTANYL CITRATE/PF 2,500 MCG in SODIUM CHLORIDE 0.9% 200 ML IV PRN (11:15)
[2020-05-04] MEDS: LORAZEPAM 2MG/ML CPJ IV PRN ×2 (14:46→22:51)
[2020-05-04] MEDS: MIDAZOLAM 100MG/100ML PMX 100 ML IV PRN ×2 (15:27→22:32)
[2020-05-04] MEDS ORDERED: HYDRALAZINE HCL 100MG TABLET PO NR (15:45)
[2020-05-04] MEDS: ALBUTEROL 6.7GM HFA INHALER ORI SCH (20:40)
[2020-05-04] MEDS: HYDRALAZINE HCL 100MG TABLET PO SCH (21:09)
[2020-05-04] MEDS: INSULIN GLARGINE UD 100 UNITS/ML SYR SUBCUT SCH (22:31)
[2020-05-05] VITALS (98 sets, daily range): BP systolic 114–174; BP diastolic 63–127
[2020-05-05] MEDS: INSULIN LISPRO 100 UNITS/ML SUBCUT SCH ×5 (00:10→23:58)
[2020-05-05] MEDS: IPRATROPIUM BROMIDE (0.02%) 0.5MG/2.5ML NEB HHN SCH ×3 (01:04→13:26)
[2020-05-05] MEDS: FENTANYL CITRATE/PF 2,500 MCG in SODIUM CHLORIDE 0.9% 200 ML IV PRN ×3 (05:11→20:42)
[2020-05-05] MEDS: METHYLPREDNISOLONE SOD SUCC 125 MG/2 ML VIAL IV SCH ×3 (05:12→21:15)
[2020-05-05] MEDS: MIDAZOLAM 100MG/100ML PMX 100 ML IV PRN ×3 (05:12→20:43)
[2020-05-05] MEDS: BLOOD SUGAR DIAGNOSTIC STRIP TEST SCH ×4 (05:34→23:58)
[2020-05-05 05:56] LABS: HEMATOCRIT. 35.3 % (42.0-52.0); HEMOGLOBIN. 10.7 g/dL (14.0-18.0); MEAN CORPUSCULAR HEMOGLOBIN 21.5 pg (28.0-32.0); MEAN CORPUSCULAR VOLUME 70.8 fL (80.0-94.0); MEAN PLATELET VOLUME 9.1 fl (7.4-10.4); PLATELET 207 x1000/uL (130-400); RED BLOOD CELL COUNT 4.99 mill/uL (4.7-6.1); RED CELL DISTRIBUTION WIDTH 16.6 % (11.6-14.6)
[2020-05-05 06:50] LABS: CHLORIDE 106 mEq/L (98-107)
[2020-05-05 08:14] LABS: BG BASE EXCESS 1.9 mmol/L (-2.0-2.0); BG CARBOXYHEMOGLOBIN 0.3 % (0.5-1.5); BG DEOXYHEMOGLOBIN 1.3 % (0.0-5.0); BG FRACTION INSPIRED OXYGEN 70; BG HCO3 ACT 25.5 mmol/L (22.0-26.0); BG OXYGEN SATURATION 98.7 % (92.0-98.5); BG OXYHEMOGLOBIN 98.4 % (94.0-97.0); BG PCO2 36.2 mmHg (35.0-45.0); BG PH 7.466 (7.350-7.450); BG PO2 135.4 mmHg (75.0-100.0); BG SAMPLE SITE RIGHT RADIAL; BG TOTAL HEMOGLOBIN 11.1 g/dL (12.0-18.0); BG VENT MODE VENT - AC/PRVC
[2020-05-05] MEDS: DOCUSATE SODIUM SUGAR FREE 100MG/10ML UDC NG SCH (09:04)
[2020-05-05] MEDS: ZINC SULFATE 220 MG ( 50 ) CAPSULE PO SCH (09:05)
[2020-05-05] MEDS: THIAMINE HCL 100MG TABLET PO SCH (09:05)
[2020-05-05] MEDS: FAMOTIDINE 20MG TABLET PO SCH (09:05)
[2020-05-05] MEDS: ASCORBIC ACID 500 MG TABLET PO SCH (09:05)
[2020-05-05] MEDS: AMLODIPINE 10MG TABLET PO SCH (09:05)
[2020-05-05] MEDS: LACTOBACILLUS GG CAPSULE PO SCH (09:05)
[2020-05-05] MEDS: METOPROLOL TARTRATE 100MG TABLET PO SCH ×2 (09:06→20:06)
[2020-05-05] MEDS: HYDRALAZINE HCL 100MG TABLET PO SCH ×2 (10:29→20:06)
[2020-05-05] MEDS: INSULIN GLARGINE UD 100 UNITS/ML SYR SUBCUT SCH ×2 (10:46→21:15)
[2020-05-05 12:06] LABS: PLATELET ESTIMATE NORMAL
[2020-05-05] MEDS: GUAIFENESIN-DM 200MG-20MG/10ML UDC PO SCH ×4 (12:16→23:56)
[2020-05-05] MEDS: LORAZEPAM 2MG/ML CPJ IV PRN (17:17)
[2020-05-06] VITALS (94 sets, daily range): BP systolic 117–185; BP diastolic 63–114
[2020-05-06] MEDS: HYDRALAZINE 20MG/ML VIAL IV PRN (01:46)
[2020-05-06] MEDS: LORAZEPAM 2MG/ML CPJ IV PRN ×2 (01:52→17:31)
[2020-05-06] MEDS: IPRATROPIUM BROMIDE (0.02%) 0.5MG/2.5ML NEB HHN SCH ×4 (02:42→20:42)
[2020-05-06] MEDS: GUAIFENESIN-DM 200MG-20MG/10ML UDC PO SCH ×2 (03:29→08:57)
[2020-05-06] MEDS: FENTANYL CITRATE/PF 2,500 MCG in SODIUM CHLORIDE 0.9% 200 ML IV PRN ×3 (03:34→18:05)
[2020-05-06] MEDS: BLOOD SUGAR DIAGNOSTIC STRIP TEST SCH ×4 (05:07→23:18)
[2020-05-06] MEDS: METHYLPREDNISOLONE SOD SUCC 125 MG/2 ML VIAL IV SCH ×2 (05:11→14:17)
[2020-05-06] MEDS: INSULIN LISPRO 100 UNITS/ML SUBCUT SCH ×4 (05:11→23:52)
[2020-05-06 05:39] LABS: HEMATOCRIT. 31.3 % (42.0-52.0); HEMOGLOBIN. 9.6 g/dL (14.0-18.0); MEAN CORPUSCULAR HEMOGLOBIN 21.7 pg (28.0-32.0); MEAN CORPUSCULAR VOLUME 70.5 fL (80.0-94.0); MEAN PLATELET VOLUME 9.2 fl (7.4-10.4); PLATELET 208 x1000/uL (130-400); RED BLOOD CELL COUNT 4.45 mill/uL (4.7-6.1); RED CELL DISTRIBUTION WIDTH 16.5 % (11.6-14.6)
[2020-05-06 05:44] LABS: CHLORIDE 104 mEq/L (98-107)
[2020-05-06 07:03] LABS: BG BASE EXCESS 7.2 mmol/L (-2.0-2.0); BG CARBOXYHEMOGLOBIN 0.1 % (0.5-1.5); BG DEOXYHEMOGLOBIN 1.1 % (0.0-5.0); BG FRACTION INSPIRED OXYGEN 70; BG HCO3 ACT 32.3 mmol/L (22.0-26.0); BG METHEMOGLOBIN 0.1 % (0.0-1.5); BG OXYGEN SATURATION 98.9 % (92.0-98.5); BG OXYHEMOGLOBIN 98.7 % (94.0-97.0); BG PH 7.446 (7.350-7.450); BG PO2 167.5 mmHg (75.0-100.0); BG SAMPLE SITE RIGHT RADIAL; BG TOTAL HEMOGLOBIN 11.4 g/dL (12.0-18.0); BG VENT MODE VENT - AC/PRVC
[2020-05-06] MEDS: ZINC SULFATE 220 MG ( 50 ) CAPSULE PO SCH (08:53)
[2020-05-06] MEDS: FAMOTIDINE 20MG TABLET PO SCH (08:53)
[2020-05-06] MEDS: LACTOBACILLUS GG CAPSULE PO SCH (08:53)
[2020-05-06] MEDS: THIAMINE HCL 100MG TABLET PO SCH (08:53)
[2020-05-06] MEDS: ASCORBIC ACID 500 MG TABLET PO SCH (08:53)
[2020-05-06] MEDS: AMLODIPINE 10MG TABLET PO SCH (08:53)
[2020-05-06] MEDS: METOPROLOL TARTRATE 100MG TABLET PO SCH ×2 (08:55→21:38)
[2020-05-06] MEDS: DOCUSATE SODIUM SUGAR FREE 100MG/10ML UDC NG SCH (08:55)
[2020-05-06] MEDS: MIDAZOLAM 100MG/100ML PMX 100 ML IV PRN ×2 (09:14→16:20)
[2020-05-06] MEDS: HYDRALAZINE HCL 100MG TABLET PO SCH ×2 (09:53→21:37)
[2020-05-06] MEDS: INSULIN GLARGINE UD 100 UNITS/ML SYR SUBCUT SCH ×2 (09:54→21:40)
[2020-05-06 16:11] LABS: PLATELET ESTIMATE NORMAL
[2020-05-06] MEDS: QUETIAPINE FUMARATE 25MG TABLET PO SCH (21:38)
[2020-05-06] MEDS: METHYLPREDNISOLONE SOD SUCC 40 MG/ML VIAL IV SCH (21:38)
[2020-05-06] MEDS: ENOXAPARIN 40MG/0.4ML SYR SUBCUT SCH (21:39)
[2020-05-07] VITALS (61 sets, daily range): BP systolic 123–184; BP diastolic 70–112
[2020-05-07] MEDS: IPRATROPIUM BROMIDE (0.02%) 0.5MG/2.5ML NEB HHN SCH ×4 (00:16→20:17)
[2020-05-07] MEDS: MIDAZOLAM 100MG/100ML PMX 100 ML IV PRN ×4 (00:23→19:05)
[2020-05-07] MEDS: LORAZEPAM 2MG/ML CPJ IV PRN ×4 (00:30→19:05)
[2020-05-07] MEDS: HYDRALAZINE 20MG/ML VIAL IV PRN (01:19)
[2020-05-07] MEDS: FENTANYL CITRATE/PF 2,500 MCG in SODIUM CHLORIDE 0.9% 200 ML IV PRN ×3 (01:39→15:52)
[2020-05-07] MEDS: CLONIDINE 0.1MG TABLET PO PRN (03:53)
[2020-05-07] MEDS: BLOOD SUGAR DIAGNOSTIC STRIP TEST SCH ×2 (05:20→12:11)
[2020-05-07] MEDS: METHYLPREDNISOLONE SOD SUCC 40 MG/ML VIAL IV SCH ×3 (05:36→21:34)
[2020-05-07] MEDS: INSULIN LISPRO 100 UNITS/ML SUBCUT SCH ×2 (05:37→12:14)
[2020-05-07 05:41] LABS: HEMATOCRIT. 33.9 % (42.0-52.0); HEMOGLOBIN. 10.5 g/dL (14.0-18.0); MEAN CORPUSCULAR HEMOGLOBIN 21.8 pg (28.0-32.0); MEAN CORPUSCULAR VOLUME 70.5 fL (80.0-94.0); MEAN PLATELET VOLUME 8.6 fl (7.4-10.4); PLATELET 259 x1000/uL (130-400); RED BLOOD CELL COUNT 4.81 mill/uL (4.7-6.1); RED CELL DISTRIBUTION WIDTH 16.6 % (11.6-14.6)
[2020-05-07 05:50] LABS: CHLORIDE 103 mEq/L (98-107)
[2020-05-07] MEDS: LACTOBACILLUS GG CAPSULE PO SCH (08:26)
[2020-05-07] MEDS: DOCUSATE SODIUM SUGAR FREE 100MG/10ML UDC NG SCH (08:26)
[2020-05-07] MEDS: LACTULOSE 20G/30ML UDC PO PRN (08:26)
[2020-05-07] MEDS: THIAMINE HCL 100MG TABLET PO SCH (08:26)
[2020-05-07] MEDS: FAMOTIDINE 20MG TABLET PO SCH (08:26)
[2020-05-07] MEDS: ENOXAPARIN 40MG/0.4ML SYR SUBCUT SCH ×2 (08:26→21:36)
[2020-05-07] MEDS: ZINC SULFATE 220 MG ( 50 ) CAPSULE PO SCH (08:26)
[2020-05-07] MEDS: METOPROLOL TARTRATE 100MG TABLET PO SCH ×2 (08:27→21:34)
[2020-05-07] MEDS: QUETIAPINE FUMARATE 25MG TABLET PO SCH ×2 (08:27→21:34)
[2020-05-07] MEDS: AMLODIPINE 10MG TABLET PO SCH (08:27)
[2020-05-07] MEDS: HYDRALAZINE HCL 100MG TABLET PO SCH ×2 (08:27→21:35)
[2020-05-07] MEDS: ASCORBIC ACID 500 MG TABLET PO SCH (08:27)
[2020-05-07 08:40] LABS: BG BASE EXCESS 6.8 mmol/L (-2.0-2.0); BG CARBOXYHEMOGLOBIN 0.5 % (0.5-1.5); BG DEOXYHEMOGLOBIN 0.8 % (0.0-5.0); BG FRACTION INSPIRED OXYGEN 50; BG HCO3 ACT 28.6 mmol/L (22.0-26.0); BG METHEMOGLOBIN 0.1 % (0.0-1.5); BG OXYGEN SATURATION 99.2 % (92.0-98.5); BG OXYHEMOGLOBIN 98.6 % (94.0-97.0); BG PCO2 31.1 mmHg (35.0-45.0); BG PH 7.582 (7.350-7.450); BG PO2 164.5 mmHg (75.0-100.0); BG SAMPLE SITE RIGHT RADIAL; BG TOTAL HEMOGLOBIN 10.4 g/dL (12.0-18.0); BG VENT MODE VENT - AC/PRVC
[2020-05-07] MEDS: INSULIN GLARGINE UD 100 UNITS/ML SYR SUBCUT SCH ×2 (10:06→21:39)
[2020-05-07] MEDS: BISACODYL 10MG SUPP PR PRN (12:18)
[2020-05-07 12:36] LABS: PLATELET ESTIMATE NORMAL
[2020-05-07] MEDS ORDERED: DEXTROSE 50% WATER 50ML SYRINGE IV PRN (18:45)
[2020-05-07] MEDS ORDERED: BLOOD SUGAR DIAGNOSTIC STRIP TEST SCH (20:00)
[2020-05-07] MEDS ORDERED: INSULIN LISPRO 100 UNITS/ML SUBCUT SCH (20:00)
[2020-05-08] VITALS (90 sets, daily range): BP systolic 103–182; BP diastolic 29–104
[2020-05-08] MEDS: FENTANYL CITRATE/PF 2,500 MCG in SODIUM CHLORIDE 0.9% 200 ML IV PRN ×4 (00:30→22:55)
[2020-05-08] MEDS: BLOOD SUGAR DIAGNOSTIC STRIP TEST SCH ×4 (00:44→17:31)
[2020-05-08] MEDS: INSULIN LISPRO 100 UNITS/ML SUBCUT SCH ×4 (01:12→17:45)
[2020-05-08] MEDS: IPRATROPIUM BROMIDE (0.02%) 0.5MG/2.5ML NEB HHN SCH ×4 (02:04→20:37)
[2020-05-08] MEDS: LORAZEPAM 2MG/ML CPJ IV PRN ×3 (04:10→18:52)
[2020-05-08] MEDS: MIDAZOLAM HCL 100 MG in SODIUM CHLORIDE 0.9% 100 ML IV PRN ×2 (04:16→14:32)
[2020-05-08] MEDS: METHYLPREDNISOLONE SOD SUCC 40 MG/ML VIAL IV SCH ×3 (07:33→20:50)
[2020-05-08] MEDS: ZINC SULFATE 220 MG ( 50 ) CAPSULE PO SCH (08:36)
[2020-05-08] MEDS: LACTOBACILLUS GG CAPSULE PO SCH (08:36)
[2020-05-08] MEDS: QUETIAPINE FUMARATE 25MG TABLET PO SCH ×2 (08:36→20:48)
[2020-05-08] MEDS: FAMOTIDINE 20MG TABLET PO SCH (08:37)
[2020-05-08] MEDS: THIAMINE HCL 100MG TABLET PO SCH (08:37)
[2020-05-08] MEDS: HYDRALAZINE HCL 100MG TABLET PO SCH ×2 (08:37→20:48)
[2020-05-08] MEDS: ASCORBIC ACID 500 MG TABLET PO SCH (08:37)
[2020-05-08] MEDS: METOPROLOL TARTRATE 100MG TABLET PO SCH ×2 (08:37→20:48)
[2020-05-08] MEDS: ENOXAPARIN 40MG/0.4ML SYR SUBCUT SCH ×2 (08:38→20:48)
[2020-05-08 08:42] LABS: BG BASE EXCESS 4.7 mmol/L (-2.0-2.0); BG CARBOXYHEMOGLOBIN 0.7 % (0.5-1.5); BG DEOXYHEMOGLOBIN 4.6 % (0.0-5.0); BG FRACTION INSPIRED OXYGEN 50; BG HCO3 ACT 28.8 mmol/L (22.0-26.0); BG METHEMOGLOBIN 0.1 % (0.0-1.5); BG OXYGEN SATURATION 95.4 % (92.0-98.5); BG OXYHEMOGLOBIN 94.6 % (94.0-97.0); BG PCO2 41.3 mmHg (35.0-45.0); BG PH 7.462 (7.350-7.450); BG PO2 72.4 mmHg (75.0-100.0); BG SAMPLE SITE RIGHT RADIAL; BG TOTAL HEMOGLOBIN 11.4 g/dL (12.0-18.0); BG VENT MODE VENT - AC/PRVC
[2020-05-08 08:44] LABS: HEMATOCRIT. 35.8 % (42.0-52.0); HEMOGLOBIN. 10.8 g/dL (14.0-18.0); MEAN CORPUSCULAR HEMOGLOBIN 21.6 pg (28.0-32.0); MEAN CORPUSCULAR VOLUME 71.5 fL (80.0-94.0); PLATELET 306 x1000/uL (130-400); RED BLOOD CELL COUNT 5.01 mill/uL (4.7-6.1); RED CELL DISTRIBUTION WIDTH 17.1 % (11.6-14.6)
[2020-05-08] MEDS: DOCUSATE SODIUM SUGAR FREE 100MG/10ML UDC NG SCH (09:00)
[2020-05-08 09:11] LABS: CHLORIDE 103 mEq/L (98-107)
[2020-05-08 10:58] LABS: PLATELET ESTIMATE NORMAL
[2020-05-08] MEDS: INSULIN GLARGINE UD 100 UNITS/ML SYR SUBCUT SCH ×2 (11:21→20:50)
[2020-05-08] MEDS: MIDAZOLAM 100MG/100ML PMX 100 ML IV PRN (21:59)
[2020-05-09] VITALS (97 sets, daily range): BP systolic 100–213; BP diastolic 46–120
[2020-05-09] MEDS: INSULIN LISPRO 100 UNITS/ML SUBCUT SCH ×5 (01:02→23:33)
[2020-05-09] MEDS: IPRATROPIUM BROMIDE (0.02%) 0.5MG/2.5ML NEB HHN SCH ×5 (02:16→23:22)
[2020-05-09] MEDS: MIDAZOLAM 100MG/100ML PMX 100 ML IV PRN ×3 (03:31→17:45)
[2020-05-09] MEDS: FENTANYL CITRATE/PF 2,500 MCG in SODIUM CHLORIDE 0.9% 200 ML IV PRN ×3 (05:51→20:52)
[2020-05-09] MEDS: METHYLPREDNISOLONE SOD SUCC 40 MG/ML VIAL IV SCH ×3 (06:25→21:15)
[2020-05-09] MEDS: BLOOD SUGAR DIAGNOSTIC STRIP TEST SCH ×5 (06:25→23:23)
[2020-05-09 06:27] LABS: HEMATOCRIT. 32.2 % (42.0-52.0); HEMOGLOBIN. 9.8 g/dL (14.0-18.0); MEAN CORPUSCULAR HEMOGLOBIN 21.5 pg (28.0-32.0); MEAN CORPUSCULAR VOLUME 70.7 fL (80.0-94.0); MEAN PLATELET VOLUME 8.3 fl (7.4-10.4); PLATELET 242 x1000/uL (130-400); RED BLOOD CELL COUNT 4.56 mill/uL (4.7-6.1); RED CELL DISTRIBUTION WIDTH 17.1 % (11.6-14.6)
[2020-05-09 06:28] LABS: CHLORIDE 102 mEq/L (98-107)
[2020-05-09 07:45] LABS: BG BASE EXCESS 8.3 mmol/L (-2.0-2.0); BG CARBOXYHEMOGLOBIN 0.5 % (0.5-1.5); BG DEOXYHEMOGLOBIN 4.7 % (0.0-5.0); BG FRACTION INSPIRED OXYGEN 50; BG HCO3 ACT 32.8 mmol/L (22.0-26.0); BG METHEMOGLOBIN 0.3 % (0.0-1.5); BG OXYGEN SATURATION 95.3 % (92.0-98.5); BG OXYHEMOGLOBIN 94.5 % (94.0-97.0); BG SAMPLE SITE RIGHT RADIAL; BG VENT MODE VENT - AC/PRVC
[2020-05-09] MEDS: ENOXAPARIN 40MG/0.4ML SYR SUBCUT SCH ×2 (08:09→21:15)
[2020-05-09] MEDS: DOCUSATE SODIUM SUGAR FREE 100MG/10ML UDC NG SCH (08:09)
[2020-05-09] MEDS: ASCORBIC ACID 500 MG TABLET PO SCH (08:10)
[2020-05-09] MEDS: LACTOBACILLUS GG CAPSULE PO SCH (08:10)
[2020-05-09] MEDS: METOPROLOL TARTRATE 100MG TABLET PO SCH (08:10)
[2020-05-09] MEDS: HYDRALAZINE HCL 100MG TABLET PO SCH ×2 (08:11→21:14)
[2020-05-09] MEDS: FAMOTIDINE 20MG TABLET PO SCH (08:11)
[2020-05-09] MEDS: THIAMINE HCL 100MG TABLET PO SCH (08:11)
[2020-05-09] MEDS: QUETIAPINE FUMARATE 25MG TABLET PO SCH ×2 (08:11→21:14)
[2020-05-09] MEDS: ZINC SULFATE 220 MG ( 50 ) CAPSULE PO SCH (08:11)
[2020-05-09] MEDS: INSULIN GLARGINE UD 100 UNITS/ML SYR SUBCUT SCH ×2 (10:12→23:13)
[2020-05-09] MEDS: FUROSEMIDE 40MG/4ML VIAL IVP SCH (13:07)
[2020-05-09] MEDS: HYDRALAZINE 20MG/ML VIAL IV PRN (19:09)
[2020-05-09] MEDS ORDERED: GUAIFENESIN 600MG ER TABLET PO SCH (21:00)
[2020-05-10] VITALS (85 sets, daily range): BP systolic 110–196; BP diastolic 56–117
[2020-05-10 00:01] LABS: PLATELET ESTIMATE NORMAL
[2020-05-10] MEDS: MIDAZOLAM 100MG/100ML PMX 100 ML IV PRN ×4 (01:07→21:16)
[2020-05-10] MEDS ORDERED: MIDAZOLAM 100MG/100ML PMX 100 ML IV PRN (01:15)
[2020-05-10] MEDS ORDERED: MIDAZOLAM HCL 100 MG in DEXT 5% WATER 80 ML IV PRN (02:00)
[2020-05-10] MEDS: IPRATROPIUM BROMIDE (0.02%) 0.5MG/2.5ML NEB HHN SCH ×5 (02:59→20:02)
[2020-05-10] MEDS: BLOOD SUGAR DIAGNOSTIC STRIP TEST SCH ×3 (06:00→18:00)
[2020-05-10 06:41] LABS: CHLORIDE 102 mEq/L (98-107)
[2020-05-10] MEDS: INSULIN LISPRO 100 UNITS/ML SUBCUT SCH ×3 (07:19→17:47)
[2020-05-10] MEDS: METHYLPREDNISOLONE SOD SUCC 40 MG/ML VIAL IV SCH ×3 (07:21→21:14)
[2020-05-10] MEDS: DOCUSATE SODIUM SUGAR FREE 100MG/10ML UDC NG SCH (08:17)
[2020-05-10] MEDS: GUAIFENESIN 200MG/10ML SUGAR FREE UDC GT SCH ×2 (08:17→13:19)
[2020-05-10] MEDS: FUROSEMIDE 40MG/4ML VIAL IVP SCH (08:18)
[2020-05-10] MEDS: HYDRALAZINE HCL 100MG TABLET PO SCH ×2 (08:18→20:46)
[2020-05-10] MEDS: LACTOBACILLUS GG CAPSULE PO SCH (08:18)
[2020-05-10] MEDS: ASCORBIC ACID 500 MG TABLET PO SCH (08:18)
[2020-05-10] MEDS: FAMOTIDINE 20MG TABLET PO SCH (08:18)
[2020-05-10] MEDS: ZINC SULFATE 220 MG ( 50 ) CAPSULE PO SCH (08:18)
[2020-05-10] MEDS: QUETIAPINE FUMARATE 25MG TABLET PO SCH (08:18)
[2020-05-10] MEDS: THIAMINE HCL 100MG TABLET PO SCH (08:19)
[2020-05-10] MEDS: ENOXAPARIN 40MG/0.4ML SYR SUBCUT SCH ×2 (08:19→20:46)
[2020-05-10] MEDS: LORAZEPAM 2MG/ML CPJ IV PRN ×3 (09:14→17:48)
[2020-05-10] MEDS: INSULIN GLARGINE UD 100 UNITS/ML SYR SUBCUT SCH ×2 (09:37→21:15)
[2020-05-10 09:45] LABS: BG BASE EXCESS 3.9 mmol/L (-2.0-2.0); BG DEOXYHEMOGLOBIN 2.2 % (0.0-5.0); BG FRACTION INSPIRED OXYGEN 50; BG HCO3 ACT 28.1 mmol/L (22.0-26.0); BG METHEMOGLOBIN 0.3 % (0.0-1.5); BG OXYGEN SATURATION 97.8 % (92.0-98.5); BG OXYHEMOGLOBIN 96.5 % (94.0-97.0); BG PCO2 40.7 mmHg (35.0-45.0); BG PH 7.457 (7.350-7.450); BG PO2 98.5 mmHg (75.0-100.0); BG SAMPLE SITE RIGHT RADIAL; BG TOTAL HEMOGLOBIN 11.5 g/dL (12.0-18.0); BG VENT MODE PRVC
[2020-05-10 10:11] LABS: HEMATOCRIT. 31.7 % (42.0-52.0); HEMOGLOBIN. 9.8 g/dL (14.0-18.0); MEAN CORPUSCULAR HEMOGLOBIN 21.8 pg (28.0-32.0); MEAN CORPUSCULAR VOLUME 70.2 fL (80.0-94.0); MEAN PLATELET VOLUME 8.6 fl (7.4-10.4); PLATELET 237 x1000/uL (130-400); RED BLOOD CELL COUNT 4.52 mill/uL (4.7-6.1); RED CELL DISTRIBUTION WIDTH 17.1 % (11.6-14.6)
[2020-05-10] MEDS: FENTANYL CITRATE/PF 2,500 MCG in SODIUM CHLORIDE 0.9% 200 ML IV PRN ×2 (10:27→17:58)
[2020-05-10 17:45] LABS: PLATELET ESTIMATE NORMAL
[2020-05-10] MEDS: LACTULOSE 20G/30ML UDC PO PRN (18:01)
[2020-05-10] MEDS: QUETIAPINE FUMARATE 50MG TABLET PO SCH (20:46)
[2020-05-10] MEDS ORDERED: GUAIFENESIN 200MG/10ML SUGAR FREE UDC GT SCH (21:00)
[2020-05-11] VITALS (83 sets, daily range): BP systolic 87–200; BP diastolic 42–141
[2020-05-11] MEDS: BLOOD SUGAR DIAGNOSTIC STRIP TEST SCH ×4 (00:27→17:43)
[2020-05-11] MEDS: INSULIN LISPRO 100 UNITS/ML SUBCUT SCH ×4 (00:33→17:38)
[2020-05-11] MEDS: FENTANYL CITRATE/PF 2,500 MCG in SODIUM CHLORIDE 0.9% 200 ML IV PRN ×3 (01:23→14:45)
[2020-05-11] MEDS: LORAZEPAM 2MG/ML CPJ IV PRN ×2 (02:29→09:14)
[2020-05-11] MEDS: IPRATROPIUM BROMIDE (0.02%) 0.5MG/2.5ML NEB HHN SCH ×4 (02:30→20:28)
[2020-05-11] MEDS: MIDAZOLAM 100MG/100ML PMX 100 ML IV PRN ×4 (04:57→17:43)
[2020-05-11 05:51] LABS: BASOPHILS % 0.3 % (0.0-2.0); HEMATOCRIT. 31.6 % (42.0-52.0); HEMOGLOBIN. 9.9 g/dL (14.0-18.0); LYMPHOCYTES % 9.9 % (20.0-50.0); MEAN CORPUSCULAR HEMOGLOBIN 21.9 pg (28.0-32.0); MEAN CORPUSCULAR VOLUME 70.2 fL (80.0-94.0); MEAN PLATELET VOLUME 8.6 fl (7.4-10.4); MONOCYTES % 12.3 % (2.0-8.0); NEUTROPHILS % 77.5 % (40.0-76.0); PLATELET 255 x1000/uL (130-400); RED CELL DISTRIBUTION WIDTH 17.4 % (11.6-14.6)
[2020-05-11 05:54] LABS: CHLORIDE 102 mEq/L (98-107)
[2020-05-11] MEDS: METHYLPREDNISOLONE SOD SUCC 40 MG/ML VIAL IV SCH ×3 (05:59→22:52)
[2020-05-11] MEDS: FAMOTIDINE 20MG TABLET PO SCH (08:11)
[2020-05-11] MEDS: ZINC SULFATE 220 MG ( 50 ) CAPSULE PO SCH (08:11)
[2020-05-11] MEDS: FUROSEMIDE 40MG/4ML VIAL IVP SCH (08:12)
[2020-05-11] MEDS: LACTOBACILLUS GG CAPSULE PO SCH (08:12)
[2020-05-11] MEDS: ENOXAPARIN 40MG/0.4ML SYR SUBCUT SCH ×2 (08:12→22:53)
[2020-05-11] MEDS: QUETIAPINE FUMARATE 50MG TABLET PO SCH ×2 (08:12→21:00)
[2020-05-11] MEDS: ASCORBIC ACID 500 MG TABLET PO SCH (08:12)
[2020-05-11] MEDS: HYDRALAZINE HCL 100MG TABLET PO SCH ×2 (08:12→21:00)
[2020-05-11] MEDS: THIAMINE HCL 100MG TABLET PO SCH (08:12)
[2020-05-11] MEDS: DOCUSATE SODIUM SUGAR FREE 100MG/10ML UDC NG SCH (08:13)
[2020-05-11] MEDS: LACTULOSE 20G/30ML UDC PO PRN (09:14)
[2020-05-11] MEDS: PROPOFOL 10MG/ML 100ML 100 ML IV PRN ×2 (09:41→14:44)
[2020-05-11] MEDS: INSULIN GLARGINE UD 100 UNITS/ML SYR SUBCUT SCH ×2 (09:57→22:56)
[2020-05-11 10:39] LABS: BG BASE EXCESS 5.9 mmol/L (-2.0-2.0); BG CARBOXYHEMOGLOBIN 0.1 % (0.5-1.5); BG DEOXYHEMOGLOBIN 3.9 % (0.0-5.0); BG FRACTION INSPIRED OXYGEN 40; BG HCO3 ACT 29.6 mmol/L (22.0-26.0); BG METHEMOGLOBIN 0.3 % (0.0-1.5); BG OXYGEN SATURATION 96.1 % (92.0-98.5); BG OXYHEMOGLOBIN 95.7 % (94.0-97.0); BG PCO2 39.6 mmHg (35.0-45.0); BG PH 7.492 (7.350-7.450); BG SAMPLE SITE RIGHT RADIAL; BG TOTAL HEMOGLOBIN 12.7 g/dL (12.0-18.0); BG VENT MODE PRVC
[2020-05-11] MEDS: GUAIFENESIN 200MG/10ML SUGAR FREE UDC GT SCH ×2 (12:56→17:37)
[2020-05-11] MEDS ORDERED: PHENYLEPHRINE 100 MG in DEXT 5% WATER 240 ML IV PRN (20:15)
[2020-05-11] MEDS ORDERED: NOREPINEPHRINE 8 MG in DEXT 5% WATER 242 ML IV PRN (20:15)
[2020-05-11] MEDS: METOPROLOL TARTRATE 25MG TABLET PO SCH (21:00)
[2020-05-12] VITALS (77 sets, daily range): BP systolic 64–160; BP diastolic 45–92
[2020-05-12] MEDS: BLOOD SUGAR DIAGNOSTIC STRIP TEST SCH ×5 (00:23→23:16)
[2020-05-12] MEDS: FENTANYL CITRATE/PF 2,500 MCG in SODIUM CHLORIDE 0.9% 200 ML IV PRN ×4 (00:25→22:07)
[2020-05-12] MEDS: MIDAZOLAM 100MG/100ML PMX 100 ML IV PRN ×4 (00:26→22:06)
[2020-05-12] MEDS: GUAIFENESIN 200MG/10ML SUGAR FREE UDC GT SCH ×5 (00:32→23:19)
[2020-05-12] MEDS: IPRATROPIUM BROMIDE (0.02%) 0.5MG/2.5ML NEB HHN SCH ×4 (02:29→20:25)
[2020-05-12] MEDS: PROPOFOL 10MG/ML 100ML 100 ML IV PRN ×2 (03:31→14:46)
[2020-05-12 05:52] LABS: HEMATOCRIT. 29.4 % (42.0-52.0); HEMOGLOBIN. 9.3 g/dL (14.0-18.0); MEAN CORPUSCULAR HEMOGLOBIN 22.1 pg (28.0-32.0); MEAN PLATELET VOLUME 8.4 fl (7.4-10.4); PLATELET 223 x1000/uL (130-400); RED CELL DISTRIBUTION WIDTH 17.2 % (11.6-14.6)
[2020-05-12 05:55] LABS: CHLORIDE 105 mEq/L (98-107)
[2020-05-12] MEDS: INSULIN LISPRO 100 UNITS/ML SUBCUT SCH ×5 (06:00→23:19)
[2020-05-12] MEDS: METHYLPREDNISOLONE SOD SUCC 40 MG/ML VIAL IV SCH ×3 (06:46→21:57)
[2020-05-12 07:31] LABS: BG BASE EXCESS 3.9 mmol/L (-2.0-2.0); BG CARBOXYHEMOGLOBIN 0.8 % (0.5-1.5); BG DEOXYHEMOGLOBIN 4.4 % (0.0-5.0); BG FRACTION INSPIRED OXYGEN 35; BG METHEMOGLOBIN 0.3 % (0.0-1.5); BG OXYGEN SATURATION 95.6 % (92.0-98.5); BG OXYHEMOGLOBIN 94.5 % (94.0-97.0); BG PCO2 30.2 mmHg (35.0-45.0); BG PH 7.552 (7.350-7.450); BG PO2 72.5 mmHg (75.0-100.0); BG SAMPLE SITE RIGHT RADIAL; BG TOTAL HEMOGLOBIN 9.9 g/dL (12.0-18.0); BG VENT MODE VENT - AC/PRVC
[2020-05-12] MEDS: ASCORBIC ACID 500 MG TABLET PO SCH (08:50)
[2020-05-12] MEDS: LACTOBACILLUS GG CAPSULE PO SCH (08:50)
[2020-05-12] MEDS: QUETIAPINE FUMARATE 50MG TABLET PO SCH ×2 (08:50→21:56)
[2020-05-12] MEDS: FAMOTIDINE 20MG TABLET PO SCH (08:50)
[2020-05-12] MEDS: THIAMINE HCL 100MG TABLET PO SCH (08:50)
[2020-05-12] MEDS: ZINC SULFATE 220 MG ( 50 ) CAPSULE PO SCH (08:50)
[2020-05-12] MEDS: FUROSEMIDE 40MG/4ML VIAL IVP SCH (08:51)
[2020-05-12] MEDS: ENOXAPARIN 40MG/0.4ML SYR SUBCUT SCH ×2 (08:51→21:56)
[2020-05-12] MEDS: DOCUSATE SODIUM SUGAR FREE 100MG/10ML UDC NG SCH (08:51)
[2020-05-12] MEDS: HYDRALAZINE HCL 100MG TABLET PO SCH ×2 (08:51→17:11)
[2020-05-12] MEDS: METOPROLOL TARTRATE 25MG TABLET PO SCH ×2 (08:52→21:56)
[2020-05-12] MEDS ORDERED: POTASSIUM CHLORIDE 20MEQ/PACKET PO SCH (09:00)
[2020-05-12] MEDS: INSULIN GLARGINE UD 100 UNITS/ML SYR SUBCUT SCH ×2 (10:23→22:04)
[2020-05-12 12:27] LABS: PLATELET ESTIMATE NORMAL
[2020-05-12] MEDS ORDERED: PROPOFOL 10MG/ML 100ML 100 ML IV PRN (12:30)
[2020-05-12] MEDS: LACTULOSE 20G/30ML UDC PO PRN (21:56)
[2020-05-13] VITALS (97 sets, daily range): BP systolic 96–173; BP diastolic 46–115
[2020-05-13] MEDS: IPRATROPIUM BROMIDE (0.02%) 0.5MG/2.5ML NEB HHN SCH ×5 (02:33→21:37)
[2020-05-13] MEDS: MIDAZOLAM 100MG/100ML PMX 100 ML IV PRN ×3 (04:38→20:39)
[2020-05-13] MEDS: BISACODYL 10MG SUPP PR PRN (05:12)
[2020-05-13] MEDS: FENTANYL CITRATE/PF 2,500 MCG in SODIUM CHLORIDE 0.9% 200 ML IV PRN ×2 (05:47→15:49)
[2020-05-13] MEDS: BLOOD SUGAR DIAGNOSTIC STRIP TEST SCH ×4 (05:50→23:37)
[2020-05-13] MEDS: GUAIFENESIN 200MG/10ML SUGAR FREE UDC GT SCH ×4 (05:53→23:54)
[2020-05-13] MEDS: METHYLPREDNISOLONE SOD SUCC 40 MG/ML VIAL IV SCH ×3 (05:53→21:27)
[2020-05-13] MEDS: INSULIN LISPRO 100 UNITS/ML SUBCUT SCH ×4 (05:53→23:55)
[2020-05-13 06:00] LABS: BASOPHILS % 0.2 % (0.0-2.0); HEMATOCRIT. 31.2 % (42.0-52.0); HEMOGLOBIN. 9.6 g/dL (14.0-18.0); LYMPHOCYTES % 7.8 % (20.0-50.0); MEAN CORPUSCULAR HEMOGLOBIN 21.7 pg (28.0-32.0); MEAN CORPUSCULAR VOLUME 70.7 fL (80.0-94.0); MEAN PLATELET VOLUME 8.3 fl (7.4-10.4); MONOCYTES % 10.9 % (2.0-8.0); NEUTROPHILS % 81.1 % (40.0-76.0); PLATELET 223 x1000/uL (130-400); RED BLOOD CELL COUNT 4.42 mill/uL (4.7-6.1)
[2020-05-13 06:03] LABS: CHLORIDE 105 mEq/L (98-107)
[2020-05-13 08:36] LABS: BG BASE EXCESS 3.1 mmol/L (-2.0-2.0); BG CARBOXYHEMOGLOBIN 0.6 % (0.5-1.5); BG DEOXYHEMOGLOBIN 2.9 % (0.0-5.0); BG HCO3 ACT 28.1 mmol/L (22.0-26.0); BG METHEMOGLOBIN 0.2 % (0.0-1.5); BG OXYGEN SATURATION 97.1 % (92.0-98.5); BG OXYHEMOGLOBIN 96.3 % (94.0-97.0); BG PCO2 45.1 mmHg (35.0-45.0); BG PH 7.413 (7.350-7.450); BG PO2 93.4 mmHg (75.0-100.0); BG SAMPLE SITE RIGHT RADIAL; BG TOTAL HEMOGLOBIN 10.7 g/dL (12.0-18.0); BG VENT MODE VENT- PRVC
[2020-05-13] MEDS: ZINC SULFATE 220 MG ( 50 ) CAPSULE PO SCH (09:54)
[2020-05-13] MEDS: ASCORBIC ACID 500 MG TABLET PO SCH (09:54)
[2020-05-13] MEDS: LACTOBACILLUS GG CAPSULE PO SCH (09:54)
[2020-05-13] MEDS: HYDRALAZINE HCL 100MG TABLET PO SCH ×2 (09:54→20:36)
[2020-05-13] MEDS: METOPROLOL TARTRATE 25MG TABLET PO SCH ×2 (09:55→20:36)
[2020-05-13] MEDS: QUETIAPINE FUMARATE 50MG TABLET PO SCH ×2 (09:55→20:35)
[2020-05-13] MEDS: DOCUSATE SODIUM SUGAR FREE 100MG/10ML UDC NG SCH (09:55)
[2020-05-13] MEDS: ENOXAPARIN 40MG/0.4ML SYR SUBCUT SCH ×2 (09:55→20:37)
[2020-05-13] MEDS: THIAMINE HCL 100MG TABLET PO SCH (09:55)
[2020-05-13] MEDS: FUROSEMIDE 40MG/4ML VIAL IVP SCH (09:56)
[2020-05-13] MEDS: INSULIN GLARGINE UD 100 UNITS/ML SYR SUBCUT SCH ×2 (09:57→21:29)
[2020-05-13] MEDS: LORAZEPAM 2MG/ML CPJ IV PRN ×2 (11:07→20:35)
[2020-05-13 11:37] LABS: BG BASE EXCESS 3.9 mmol/L (-2.0-2.0); BG CARBOXYHEMOGLOBIN 0.5 % (0.5-1.5); BG DEOXYHEMOGLOBIN 6.2 % (0.0-5.0); BG HCO3 ACT 27.2 mmol/L (22.0-26.0); BG METHEMOGLOBIN 0.2 % (0.0-1.5); BG OXYGEN SATURATION 93.8 % (92.0-98.5); BG OXYHEMOGLOBIN 93.1 % (94.0-97.0); BG PCO2 36.4 mmHg (35.0-45.0); BG PH 7.491 (7.350-7.450); BG PO2 64.4 mmHg (75.0-100.0); BG SAMPLE SITE RIGHT RADIAL; BG TOTAL HEMOGLOBIN 12.8 g/dL (12.0-18.0); BG VENT MODE VENT - CPAP
[2020-05-13] MEDS: LACTULOSE 20G/30ML UDC PO PRN (20:35)
[2020-05-14] VITALS (83 sets, daily range): BP systolic 121–165; BP diastolic 67–116
[2020-05-14] MEDS: LORAZEPAM 2MG/ML CPJ IV PRN ×3 (01:13→23:19)
[2020-05-14] MEDS: FENTANYL CITRATE/PF 2,500 MCG in SODIUM CHLORIDE 0.9% 200 ML IV PRN ×3 (01:55→21:21)
[2020-05-14] MEDS: IPRATROPIUM BROMIDE (0.02%) 0.5MG/2.5ML NEB HHN SCH ×3 (03:18→16:39)
[2020-05-14] MEDS: CLONIDINE 0.1MG TABLET PO PRN (03:48)
[2020-05-14] MEDS: BISACODYL 10MG SUPP PR PRN (03:48)
[2020-05-14] MEDS ORDERED: MIDAZOLAM HCL 100 MG in DEXT 5% WATER 80 ML IV PRN (04:00)
[2020-05-14] MEDS: BLOOD SUGAR DIAGNOSTIC STRIP TEST SCH ×4 (05:22→23:56)
[2020-05-14] MEDS: METHYLPREDNISOLONE SOD SUCC 40 MG/ML VIAL IV SCH ×3 (05:24→21:42)
[2020-05-14] MEDS: INSULIN LISPRO 100 UNITS/ML SUBCUT SCH ×3 (05:25→18:33)
[2020-05-14] MEDS: GUAIFENESIN 200MG/10ML SUGAR FREE UDC GT SCH ×3 (05:34→18:37)
[2020-05-14 05:36] LABS: HEMATOCRIT. 35.6 % (42.0-52.0); HEMOGLOBIN. 10.7 g/dL (14.0-18.0); MEAN CORPUSCULAR HEMOGLOBIN 21.4 pg (28.0-32.0); MEAN CORPUSCULAR VOLUME 71.3 fL (80.0-94.0); MEAN PLATELET VOLUME 8.4 fl (7.4-10.4); PLATELET 245 x1000/uL (130-400); RED CELL DISTRIBUTION WIDTH 18.1 % (11.6-14.6)
[2020-05-14 05:41] LABS: CHLORIDE 104 mEq/L (98-107)
[2020-05-14] MEDS ORDERED: NA PHOS,M-B/NA PHOS,DI-BA ENEMA 118ML PR SCH (08:00)
[2020-05-14] MEDS: HYDRALAZINE HCL 100MG TABLET PO SCH ×3 (08:44→21:42)
[2020-05-14] MEDS: PANTOPRAZOLE SODIUM 40 MG/VIAL IV SCH (08:44)
[2020-05-14] MEDS: FUROSEMIDE 40MG/4ML VIAL IVP SCH (08:44)
[2020-05-14] MEDS: DOCUSATE SODIUM SUGAR FREE 100MG/10ML UDC NG SCH (08:44)
[2020-05-14] MEDS: LACTOBACILLUS GG CAPSULE PO SCH (08:44)
[2020-05-14] MEDS: METOPROLOL TARTRATE 25MG TABLET PO SCH ×2 (08:45→21:42)
[2020-05-14] MEDS: THIAMINE HCL 100MG TABLET PO SCH (08:46)
[2020-05-14] MEDS: AMLODIPINE 10MG TABLET PO SCH (08:46)
[2020-05-14] MEDS: QUETIAPINE FUMARATE 50MG TABLET PO SCH ×2 (08:46→21:40)
[2020-05-14] MEDS: ENOXAPARIN 40MG/0.4ML SYR SUBCUT SCH ×2 (08:47→21:41)
[2020-05-14] MEDS: ASCORBIC ACID 500 MG TABLET PO SCH (08:47)
[2020-05-14] MEDS: ZINC SULFATE 220 MG ( 50 ) CAPSULE PO SCH (08:48)
[2020-05-14] MEDS: SORBITOL 70% SOLN 30ML PO PRN (08:49)
[2020-05-14 09:48] LABS: BG BASE EXCESS 6.2 mmol/L (-2.0-2.0); BG CARBOXYHEMOGLOBIN 0.5 % (0.5-1.5); BG DEOXYHEMOGLOBIN 5.8 % (0.0-5.0); BG FRACTION INSPIRED OXYGEN 40; BG HCO3 ACT 31.2 mmol/L (22.0-26.0); BG METHEMOGLOBIN 0.3 % (0.0-1.5); BG OXYGEN SATURATION 94.2 % (92.0-98.5); BG OXYHEMOGLOBIN 93.4 % (94.0-97.0); BG PCO2 46.7 mmHg (35.0-45.0); BG PH 7.443 (7.350-7.450); BG PO2 69.1 mmHg (75.0-100.0); BG SAMPLE SITE RIGHT RADIAL; BG TOTAL HEMOGLOBIN 13.1 g/dL (12.0-18.0); BG VENT MODE VENT - AC/PRVC
[2020-05-14] MEDS: INSULIN GLARGINE UD 100 UNITS/ML SYR SUBCUT SCH ×2 (11:00→22:08)
[2020-05-14 16:51] LABS: PLATELET ESTIMATE NORMAL
[2020-05-14] MEDS: ACETAMINOPHEN 325MG TABLET PO PRN (18:37)
[2020-05-14] MEDS: MIDAZOLAM HCL 100 MG in SODIUM CHLORIDE 0.9% 100 ML IV PRN (19:00)
[2020-05-15] VITALS (77 sets, daily range): BP systolic 100–167; BP diastolic 51–124
[2020-05-15] MEDS: GUAIFENESIN 200MG/10ML SUGAR FREE UDC GT SCH ×4 (00:01→17:30)
[2020-05-15] MEDS: INSULIN LISPRO 100 UNITS/ML SUBCUT SCH ×4 (00:01→18:00)
[2020-05-15] MEDS: IPRATROPIUM BROMIDE (0.02%) 0.5MG/2.5ML NEB HHN SCH ×4 (03:07→19:58)
[2020-05-15] MEDS: BISACODYL 10MG SUPP PR PRN (03:39)
[2020-05-15] MEDS: MIDAZOLAM HCL 100 MG in SODIUM CHLORIDE 0.9% 100 ML IV PRN ×3 (04:25→20:59)
[2020-05-15] MEDS: METHYLPREDNISOLONE SOD SUCC 40 MG/ML VIAL IV SCH ×3 (06:01→20:58)
[2020-05-15] MEDS: HYDRALAZINE HCL 100MG TABLET PO SCH ×3 (06:01→20:57)
[2020-05-15] MEDS: BLOOD SUGAR DIAGNOSTIC STRIP TEST SCH ×3 (06:02→17:31)
[2020-05-15] MEDS: LORAZEPAM 2MG/ML CPJ IV PRN (06:40)
[2020-05-15 07:02] LABS: BASOPHILS % 0.2 % (0.0-2.0); HEMATOCRIT. 36.3 % (42.0-52.0); LYMPHOCYTES % 12.5 % (20.0-50.0); MEAN CORPUSCULAR HEMOGLOBIN 21.5 pg (28.0-32.0); MEAN CORPUSCULAR VOLUME 71.2 fL (80.0-94.0); MEAN PLATELET VOLUME 8.3 fl (7.4-10.4); MONOCYTES % 12.5 % (2.0-8.0); NEUTROPHILS % 74.8 % (40.0-76.0); PLATELET 231 x1000/uL (130-400); RED BLOOD CELL COUNT 5.11 mill/uL (4.7-6.1); RED CELL DISTRIBUTION WIDTH 17.7 % (11.6-14.6)
[2020-05-15 07:22] LABS: CHLORIDE 103 mEq/L (98-107)
[2020-05-15] MEDS: ASCORBIC ACID 500 MG TABLET PO SCH (08:31)
[2020-05-15] MEDS: ACETAMINOPHEN 325MG TABLET PO PRN (08:31)
[2020-05-15] MEDS: THIAMINE HCL 100MG TABLET PO SCH (08:32)
[2020-05-15] MEDS: AMLODIPINE 10MG TABLET PO SCH (08:32)
[2020-05-15] MEDS: FENTANYL CITRATE/PF 2,500 MCG in SODIUM CHLORIDE 0.9% 200 ML IV PRN ×2 (08:34→18:21)
[2020-05-15] MEDS: DOCUSATE SODIUM SUGAR FREE 100MG/10ML UDC NG SCH (08:46)
[2020-05-15] MEDS: QUETIAPINE FUMARATE 50MG TABLET PO SCH (08:46)
[2020-05-15] MEDS: ZINC SULFATE 220 MG ( 50 ) CAPSULE PO SCH (08:47)
[2020-05-15] MEDS: METOPROLOL TARTRATE 25MG TABLET PO SCH ×2 (09:00→20:57)
[2020-05-15 09:06] LABS: BG BASE EXCESS 5.3 mmol/L (-2.0-2.0); BG CARBOXYHEMOGLOBIN 0.6 % (0.5-1.5); BG DEOXYHEMOGLOBIN 3.8 % (0.0-5.0); BG FRACTION INSPIRED OXYGEN 100; BG HCO3 ACT 29.4 mmol/L (22.0-26.0); BG METHEMOGLOBIN 0.3 % (0.0-1.5); BG OXYGEN SATURATION 96.2 % (92.0-98.5); BG OXYHEMOGLOBIN 95.3 % (94.0-97.0); BG PCO2 41.1 mmHg (35.0-45.0); BG PH 7.472 (7.350-7.450); BG PO2 80.6 mmHg (75.0-100.0); BG SAMPLE SITE RIGHT RADIAL; BG TOTAL HEMOGLOBIN 11.9 g/dL (12.0-18.0); BG VENT MODE PRVC
[2020-05-15] MEDS: SORBITOL 70% SOLN 30ML PO PRN (10:07)
[2020-05-15] MEDS: FUROSEMIDE 40MG/4ML VIAL IVP SCH (10:07)
[2020-05-15] MEDS: PANTOPRAZOLE SODIUM 40 MG/VIAL IV SCH (10:07)
[2020-05-15] MEDS: ENOXAPARIN 40MG/0.4ML SYR SUBCUT SCH ×2 (10:17→20:48)
[2020-05-15] MEDS: INSULIN GLARGINE UD 100 UNITS/ML SYR SUBCUT SCH ×2 (10:19→22:00)
[2020-05-15] MEDS ORDERED: LORAZEPAM 2MG/ML CPJ IV PRN (17:15)
[2020-05-15] MEDS: QUETIAPINE FUMARATE 25MG TABLET PO SCH (20:58)
[2020-05-15] MEDS: CEFEPIME 1,000 MG in DEXTROSE 5% WATER 50 ML IV SCH (20:58)
[2020-05-16] VITALS (41 sets, daily range): BP systolic 105–168; BP diastolic 58–110
[2020-05-16] MEDS: GUAIFENESIN 200MG/10ML SUGAR FREE UDC GT SCH ×5 (00:01→23:02)
[2020-05-16] MEDS: BLOOD SUGAR DIAGNOSTIC STRIP TEST SCH ×5 (00:02→23:02)
[2020-05-16] MEDS: INSULIN LISPRO 100 UNITS/ML SUBCUT SCH ×5 (00:06→23:02)
[2020-05-16] MEDS: IPRATROPIUM BROMIDE (0.02%) 0.5MG/2.5ML NEB HHN SCH ×4 (00:27→20:03)
[2020-05-16] MEDS: FENTANYL CITRATE/PF 2,500 MCG in SODIUM CHLORIDE 0.9% 200 ML IV PRN ×2 (03:19→13:11)
[2020-05-16] MEDS: METHYLPREDNISOLONE SOD SUCC 40 MG/ML VIAL IV SCH ×3 (05:57→22:59)
[2020-05-16] MEDS: HYDRALAZINE HCL 100MG TABLET PO SCH ×3 (05:57→23:00)
[2020-05-16] MEDS: MIDAZOLAM HCL 100 MG in SODIUM CHLORIDE 0.9% 100 ML IV PRN ×2 (06:04→10:41)
[2020-05-16 06:51] LABS: BASOPHILS % 0.4 % (0.0-2.0); EOSINOPHILS % 0.1 % (0.0-5.0); HEMATOCRIT. 35.1 % (42.0-52.0); HEMOGLOBIN. 10.8 g/dL (14.0-18.0); LYMPHOCYTES % 11.3 % (20.0-50.0); MEAN CORPUSCULAR HEMOGLOBIN 21.8 pg (28.0-32.0); MEAN CORPUSCULAR VOLUME 71.2 fL (80.0-94.0); MONOCYTES % 11.4 % (2.0-8.0); NEUTROPHILS % 76.8 % (40.0-76.0); PLATELET 197 x1000/uL (130-400); RED BLOOD CELL COUNT 4.93 mill/uL (4.7-6.1); RED CELL DISTRIBUTION WIDTH 18.3 % (11.6-14.6)
[2020-05-16 07:24] LABS: CHLORIDE 104 mEq/L (98-107)
[2020-05-16] MEDS: FUROSEMIDE 40MG/4ML VIAL IVP SCH (09:15)
[2020-05-16] MEDS: ENOXAPARIN 40MG/0.4ML SYR SUBCUT SCH ×2 (09:15→20:04)
[2020-05-16] MEDS: CEFEPIME 1,000 MG in DEXTROSE 5% WATER 50 ML IV SCH ×2 (09:15→20:04)
[2020-05-16] MEDS: PANTOPRAZOLE SODIUM 40 MG/VIAL IV SCH (09:15)
[2020-05-16] MEDS: DOCUSATE SODIUM SUGAR FREE 100MG/10ML UDC NG SCH (09:16)
[2020-05-16] MEDS: QUETIAPINE FUMARATE 25MG TABLET PO SCH ×2 (09:17→20:04)
[2020-05-16] MEDS: METOPROLOL TARTRATE 25MG TABLET PO SCH ×2 (09:17→20:04)
[2020-05-16] MEDS: AMLODIPINE 10MG TABLET PO SCH (09:17)
[2020-05-16] MEDS: ZINC SULFATE 220 MG ( 50 ) CAPSULE PO SCH (09:17)
[2020-05-16] MEDS: THIAMINE HCL 100MG TABLET PO SCH (09:17)
[2020-05-16] MEDS: ASCORBIC ACID 500 MG TABLET PO SCH (09:18)
[2020-05-16 09:36] LABS: BG BASE EXCESS 4.9 mmol/L (-2.0-2.0); BG CARBOXYHEMOGLOBIN 1.4 % (0.5-1.5); BG DEOXYHEMOGLOBIN 6.4 % (0.0-5.0); BG FRACTION INSPIRED OXYGEN 40; BG HCO3 ACT 28.1 mmol/L (22.0-26.0); BG METHEMOGLOBIN 0.1 % (0.0-1.5); BG OXYGEN SATURATION 93.5 % (92.0-98.5); BG OXYHEMOGLOBIN 92.1 % (94.0-97.0); BG PCO2 36.6 mmHg (35.0-45.0); BG PH 7.503 (7.350-7.450); BG PO2 61.6 mmHg (75.0-100.0); BG SAMPLE SITE LEFT RADIAL; BG TOTAL HEMOGLOBIN 11.9 g/dL (12.0-18.0); BG VENT MODE PRVC
[2020-05-16] MEDS: INSULIN GLARGINE UD 100 UNITS/ML SYR SUBCUT SCH ×2 (10:40→23:01)
[2020-05-16] MEDS ORDERED: POTASSIUM CHLORIDE 20MEQ/PACKET PO NR (11:00)
[2020-05-16 11:45] LABS: BG BASE EXCESS 7.7 mmol/L (-2.0-2.0); BG CARBOXYHEMOGLOBIN 0.6 % (0.5-1.5); BG DEOXYHEMOGLOBIN 3.7 % (0.0-5.0); BG FRACTION INSPIRED OXYGEN 40; BG HCO3 ACT 31.6 mmol/L (22.0-26.0); BG METHEMOGLOBIN 0.6 % (0.0-1.5); BG OXYGEN SATURATION 96.3 % (92.0-98.5); BG OXYHEMOGLOBIN 95.1 % (94.0-97.0); BG PCO2 41.2 mmHg (35.0-45.0); BG PH 7.502 (7.350-7.450); BG PO2 77.8 mmHg (75.0-100.0); BG SAMPLE SITE RIGHT RADIAL; BG TOTAL HEMOGLOBIN 12.6 g/dL (12.0-18.0); BG VENT MODE VENT - CPAP
[2020-05-16] MEDS ORDERED: MORPHINE SULFATE 4 MG/ML CPJ (NOT FOR IM USE) IV PRN (12:15)
[2020-05-16] MEDS ORDERED: LORAZEPAM 2MG/ML CPJ IV PRN (17:15)
[2020-05-16] MEDS: ACETAMINOPHEN 325MG TABLET PO PRN (17:37)
[2020-05-16] MEDS: CLONIDINE 0.1MG TABLET PO PRN (17:37)
[2020-05-17] VITALS (29 sets, daily range): BP systolic 129–164; BP diastolic 78–106
[2020-05-17] MEDS: IPRATROPIUM BROMIDE (0.02%) 0.5MG/2.5ML NEB HHN SCH ×3 (04:17→14:11)
[2020-05-17 05:40] LABS: BASOPHILS % 0.4 % (0.0-2.0); EOSINOPHILS % 0.1 % (0.0-5.0); HEMATOCRIT. 36.3 % (42.0-52.0); HEMOGLOBIN. 11.1 g/dL (14.0-18.0); LYMPHOCYTES % 8.9 % (20.0-50.0); MEAN CORPUSCULAR HEMOGLOBIN 21.7 pg (28.0-32.0); MEAN CORPUSCULAR VOLUME 70.7 fL (80.0-94.0); MEAN PLATELET VOLUME 8.5 fl (7.4-10.4); MONOCYTES % 9.2 % (2.0-8.0); NEUTROPHILS % 81.4 % (40.0-76.0); PLATELET 227 x1000/uL (130-400); RED BLOOD CELL COUNT 5.14 mill/uL (4.7-6.1); RED CELL DISTRIBUTION WIDTH 17.9 % (11.6-14.6)
[2020-05-17] MEDS: BLOOD SUGAR DIAGNOSTIC STRIP TEST SCH ×4 (05:48→23:15)
[2020-05-17 06:00] LABS: CHLORIDE 104 mEq/L (98-107)
[2020-05-17] MEDS: GUAIFENESIN 200MG/10ML SUGAR FREE UDC GT SCH ×4 (06:03→23:25)
[2020-05-17] MEDS: HYDRALAZINE HCL 100MG TABLET PO SCH ×3 (06:03→21:04)
[2020-05-17] MEDS: METHYLPREDNISOLONE SOD SUCC 40 MG/ML VIAL IV SCH (06:03)
[2020-05-17] MEDS: INSULIN LISPRO 100 UNITS/ML SUBCUT SCH ×4 (06:04→23:24)
[2020-05-17] MEDS: AMLODIPINE 10MG TABLET PO SCH (08:51)
[2020-05-17] MEDS: THIAMINE HCL 100MG TABLET PO SCH (08:51)
[2020-05-17] MEDS: FUROSEMIDE 40MG/4ML VIAL IVP SCH (08:51)
[2020-05-17] MEDS: DOCUSATE SODIUM SUGAR FREE 100MG/10ML UDC NG SCH (08:51)
[2020-05-17] MEDS: CEFEPIME 1,000 MG in DEXTROSE 5% WATER 50 ML IV SCH ×2 (08:51→20:00)
[2020-05-17] MEDS: PANTOPRAZOLE SODIUM 40 MG/VIAL IV SCH (08:51)
[2020-05-17] MEDS: ENOXAPARIN 40MG/0.4ML SYR SUBCUT SCH ×2 (08:51→21:03)
[2020-05-17] MEDS: QUETIAPINE FUMARATE 25MG TABLET PO SCH ×2 (08:52→21:06)
[2020-05-17] MEDS: ASCORBIC ACID 500 MG TABLET PO SCH (08:52)
[2020-05-17] MEDS: ZINC SULFATE 220 MG ( 50 ) CAPSULE PO SCH (08:53)
[2020-05-17] MEDS: METOPROLOL TARTRATE 25MG TABLET PO SCH ×2 (08:53→21:05)
[2020-05-17] MEDS: ACETAMINOPHEN 325MG TABLET PO PRN (08:53)
[2020-05-17] MEDS: INSULIN GLARGINE UD 100 UNITS/ML SYR SUBCUT SCH ×2 (10:04→22:03)
[2020-05-18] VITALS (21 sets, daily range): BP systolic 129–165; BP diastolic 75–109
[2020-05-18] MEDS: HYDRALAZINE HCL 100MG TABLET PO SCH ×3 (05:41→20:33)
[2020-05-18] MEDS: GUAIFENESIN 200MG/10ML SUGAR FREE UDC GT SCH ×4 (05:41→23:27)
[2020-05-18] MEDS: BLOOD SUGAR DIAGNOSTIC STRIP TEST SCH ×4 (05:51→23:17)
[2020-05-18] MEDS: INSULIN LISPRO 100 UNITS/ML SUBCUT SCH ×4 (05:52→23:30)
[2020-05-18] MEDS: DOCUSATE SODIUM SUGAR FREE 100MG/10ML UDC NG SCH (09:00)
[2020-05-18] MEDS: FUROSEMIDE 40MG/4ML VIAL IVP SCH (10:14)
[2020-05-18] MEDS: PANTOPRAZOLE SODIUM 40 MG/VIAL IV SCH (10:14)
[2020-05-18] MEDS: PREDNISONE 20MG TABLET PO SCH (10:15)
[2020-05-18] MEDS: QUETIAPINE FUMARATE 25MG TABLET PO SCH ×2 (10:15→20:15)
[2020-05-18] MEDS: AMLODIPINE 10MG TABLET PO SCH (10:16)
[2020-05-18] MEDS: METOPROLOL TARTRATE 25MG TABLET PO SCH ×2 (10:16→20:14)
[2020-05-18] MEDS: INSULIN GLARGINE UD 100 UNITS/ML SYR SUBCUT SCH ×2 (10:18→22:27)
[2020-05-18] MEDS: ENOXAPARIN 40MG/0.4ML SYR SUBCUT SCH ×2 (10:20→20:15)
[2020-05-18] MEDS: CEFEPIME 1,000 MG in DEXTROSE 5% WATER 50 ML IV SCH ×2 (10:20→20:13)
[2020-05-18] MEDS: ACETAMINOPHEN 325MG TABLET PO PRN (11:54)
[2020-05-18] MEDS: CLONIDINE 0.1MG TABLET PO PRN (13:33)
[2020-05-19] VITALS (12 sets, daily range): BP systolic 127–177; BP diastolic 71–95
[2020-05-19] MEDS: BLOOD SUGAR DIAGNOSTIC STRIP TEST SCH ×3 (05:42→18:40)
[2020-05-19] MEDS: GUAIFENESIN 200MG/10ML SUGAR FREE UDC GT SCH ×3 (05:48→18:32)
[2020-05-19] MEDS: HYDRALAZINE HCL 100MG TABLET PO SCH ×3 (05:49→21:24)
[2020-05-19 06:12] LABS: CHLORIDE 106 mEq/L (98-107)
[2020-05-19] MEDS: INSULIN LISPRO 100 UNITS/ML SUBCUT SCH ×3 (06:22→18:00)
[2020-05-19 07:05] LABS: HEMOGLOBIN. 11.6 g/dL (14.0-18.0); MEAN CORPUSCULAR HEMOGLOBIN 21.7 pg (28.0-32.0); MEAN PLATELET VOLUME 8.8 fl (7.4-10.4); PLATELET 201 x1000/uL (130-400); RED BLOOD CELL COUNT 5.35 mill/uL (4.7-6.1); RED CELL DISTRIBUTION WIDTH 18.2 % (11.6-14.6)
[2020-05-19] MEDS: DOCUSATE SODIUM SUGAR FREE 100MG/10ML UDC NG SCH (08:57)
[2020-05-19] MEDS: PANTOPRAZOLE SODIUM 40 MG/VIAL IV SCH (09:58)
[2020-05-19] MEDS: PREDNISONE 20MG TABLET PO SCH (09:58)
[2020-05-19] MEDS: FUROSEMIDE 40MG/4ML VIAL IVP SCH (09:58)
[2020-05-19] MEDS: METOPROLOL TARTRATE 25MG TABLET PO SCH ×2 (09:59→21:23)
[2020-05-19] MEDS: AMLODIPINE 10MG TABLET PO SCH (09:59)
[2020-05-19] MEDS: QUETIAPINE FUMARATE 25MG TABLET PO SCH ×2 (10:00→21:23)
[2020-05-19] MEDS: CEFEPIME 1,000 MG in DEXTROSE 5% WATER 50 ML IV SCH ×2 (11:27→21:19)
[2020-05-19] MEDS: INSULIN GLARGINE UD 100 UNITS/ML SYR SUBCUT SCH ×2 (11:29→21:52)
[2020-05-19] MEDS: IPRATROPIUM/ALBUTEROL 0.5-3(2.5)MG/3ML NEB HHN SCH ×2 (15:26→23:49)
[2020-05-19] MEDS: ACETYLCYSTEINE 100MG/ML 10% VIAL 4ML INH SCH ×2 (15:27→23:49)
[2020-05-19] MEDS ORDERED: POTASSIUM CHLORIDE 20MEQ TABLET SR PO NR (16:45)
[2020-05-19 17:19] LABS: PLATELET ESTIMATE NORMAL
[2020-05-19] MEDS: ENOXAPARIN 40MG/0.4ML SYR SUBCUT SCH (18:40)
[2020-05-20] VITALS (12 sets, daily range): BP systolic 115–132; BP diastolic 65–76
[2020-05-20] MEDS: INSULIN LISPRO 100 UNITS/ML SUBCUT SCH ×4 (01:10→17:39)
[2020-05-20] MEDS: GUAIFENESIN 200MG/10ML SUGAR FREE UDC GT SCH ×4 (01:10→17:38)
[2020-05-20] MEDS: IPRATROPIUM/ALBUTEROL 0.5-3(2.5)MG/3ML NEB HHN SCH ×3 (04:10→14:17)
[2020-05-20] MEDS: BLOOD SUGAR DIAGNOSTIC STRIP TEST SCH ×4 (05:29→17:17)
[2020-05-20] MEDS: ENOXAPARIN 40MG/0.4ML SYR SUBCUT SCH ×2 (05:30→17:38)
[2020-05-20] MEDS: HYDRALAZINE HCL 100MG TABLET PO SCH ×3 (05:34→21:02)
[2020-05-20] MEDS: ACETYLCYSTEINE 100MG/ML 10% VIAL 4ML INH SCH ×2 (08:13→14:17)
[2020-05-20] MEDS: CEFEPIME 1,000 MG in DEXTROSE 5% WATER 50 ML IV SCH ×2 (09:20→20:44)
[2020-05-20] MEDS: FUROSEMIDE 40MG/4ML VIAL IVP SCH (09:21)
[2020-05-20] MEDS: PANTOPRAZOLE SODIUM 40 MG/VIAL IV SCH (09:21)
[2020-05-20] MEDS: DOCUSATE SODIUM SUGAR FREE 100MG/10ML UDC NG SCH (09:21)
[2020-05-20] MEDS: AMLODIPINE 10MG TABLET PO SCH (09:22)
[2020-05-20] MEDS: PREDNISONE 20MG TABLET PO SCH (09:22)
[2020-05-20] MEDS: QUETIAPINE FUMARATE 25MG TABLET PO SCH ×2 (09:22→20:44)
[2020-05-20] MEDS: METOPROLOL TARTRATE 25MG TABLET PO SCH ×2 (09:22→20:44)
[2020-05-20] MEDS: INSULIN GLARGINE UD 100 UNITS/ML SYR SUBCUT SCH ×2 (10:00→21:19)
[2020-05-20] MEDS ORDERED: LACTULOSE 20G/30ML UDC PO NR (16:00)
[2020-05-21] VITALS (12 sets, daily range): BP systolic 122–156; BP diastolic 60–84
[2020-05-21] MEDS: GUAIFENESIN 200MG/10ML SUGAR FREE UDC GT SCH ×5 (00:46→23:17)
[2020-05-21] MEDS: BLOOD SUGAR DIAGNOSTIC STRIP TEST SCH ×5 (00:48→23:23)
[2020-05-21] MEDS: INSULIN LISPRO 100 UNITS/ML SUBCUT SCH ×5 (00:51→23:19)
[2020-05-21] MEDS: IPRATROPIUM/ALBUTEROL 0.5-3(2.5)MG/3ML NEB HHN SCH ×4 (02:24→20:00)
[2020-05-21] MEDS: HYDRALAZINE HCL 100MG TABLET PO SCH ×3 (05:53→21:19)
[2020-05-21] MEDS: PREDNISONE 20MG TABLET PO SCH (08:38)
[2020-05-21] MEDS: ACETAMINOPHEN 325MG TABLET PO PRN (08:38)
[2020-05-21] MEDS: AMLODIPINE 10MG TABLET PO SCH (08:38)
[2020-05-21] MEDS: QUETIAPINE FUMARATE 25MG TABLET PO SCH (08:39)
[2020-05-21] MEDS: PANTOPRAZOLE SODIUM 40 MG/VIAL IV SCH (08:39)
[2020-05-21] MEDS: FUROSEMIDE 40MG/4ML VIAL IVP SCH (08:39)
[2020-05-21] MEDS: METOPROLOL TARTRATE 25MG TABLET PO SCH ×2 (08:39→20:24)
[2020-05-21] MEDS: ENOXAPARIN 30MG/0.3ML SYR SUBCUT SCH ×2 (08:40→20:25)
[2020-05-21] MEDS: INSULIN GLARGINE UD 100 UNITS/ML SYR SUBCUT SCH ×2 (11:49→21:20)
[2020-05-21] MEDS: SORBITOL 70% SOLN 30ML PO PRN (12:37)
[2020-05-21] MEDS: TRAMADOL 50MG TABLET PO PRN (12:38)
[2020-05-21] MEDS: DOCUSATE SODIUM SUGAR FREE 100MG/10ML UDC NG SCH (12:41)
[2020-05-21 16:47] LABS: BASOPHILS % 0.5 % (0.0-2.0); HEMATOCRIT. 39.5 % (42.0-52.0); HEMOGLOBIN. 12.2 g/dL (14.0-18.0); LYMPHOCYTES % 13.8 % (20.0-50.0); MEAN CORPUSCULAR HEMOGLOBIN 21.9 pg (28.0-32.0); MEAN CORPUSCULAR VOLUME 71.2 fL (80.0-94.0); MEAN PLATELET VOLUME 8.9 fl (7.4-10.4); MONOCYTES % 10.1 % (2.0-8.0); NEUTROPHILS % 75.6 % (40.0-76.0); PLATELET 229 x1000/uL (130-400); RED BLOOD CELL COUNT 5.55 mill/uL (4.7-6.1); RED CELL DISTRIBUTION WIDTH 18.5 % (11.6-14.6)
[2020-05-21 16:50] LABS: CHLORIDE 111 mEq/L (98-107)
[2020-05-21] MEDS: ACETYLCYSTEINE 100MG/ML 10% VIAL 4ML INH SCH (17:22)
[2020-05-21] MEDS: QUETIAPINE FUMARATE 50MG TABLET PO SCH (20:24)
[2020-05-22] VITALS (12 sets, daily range): BP systolic 131–165; BP diastolic 76–94
[2020-05-22] MEDS: CLONIDINE 0.1MG TABLET PO PRN (01:38)
[2020-05-22] MEDS: BLOOD SUGAR DIAGNOSTIC STRIP TEST SCH ×3 (06:00→18:22)
[2020-05-22] MEDS: GUAIFENESIN 200MG/10ML SUGAR FREE UDC GT SCH ×3 (06:13→18:00)
[2020-05-22] MEDS: HYDRALAZINE HCL 100MG TABLET PO SCH ×3 (06:13→22:52)
[2020-05-22] MEDS: INSULIN LISPRO 100 UNITS/ML SUBCUT SCH ×3 (06:15→18:22)
[2020-05-22 06:43] LABS: HEMATOCRIT. 39.7 % (42.0-52.0); HEMOGLOBIN. 12.2 g/dL (14.0-18.0); MEAN CORPUSCULAR HEMOGLOBIN 21.8 pg (28.0-32.0); MEAN CORPUSCULAR VOLUME 71.3 fL (80.0-94.0); MEAN PLATELET VOLUME 8.6 fl (7.4-10.4); PLATELET 219 x1000/uL (130-400); RED BLOOD CELL COUNT 5.57 mill/uL (4.7-6.1); RED CELL DISTRIBUTION WIDTH 18.2 % (11.6-14.6)
[2020-05-22 07:26] LABS: CHLORIDE 110 mEq/L (98-107)
[2020-05-22] MEDS: ACETYLCYSTEINE 100MG/ML 10% VIAL 4ML INH SCH (07:35)
[2020-05-22] MEDS: IPRATROPIUM/ALBUTEROL 0.5-3(2.5)MG/3ML NEB HHN SCH ×3 (07:35→20:25)
[2020-05-22] MEDS: PREDNISONE 20MG TABLET PO SCH (08:22)
[2020-05-22] MEDS: METOPROLOL TARTRATE 25MG TABLET PO SCH (08:23)
[2020-05-22] MEDS: FUROSEMIDE 40MG/4ML VIAL IVP SCH (08:23)
[2020-05-22] MEDS: DOCUSATE SODIUM SUGAR FREE 100MG/10ML UDC NG SCH (08:23)
[2020-05-22] MEDS: PANTOPRAZOLE SODIUM 40 MG/VIAL IV SCH (08:23)
[2020-05-22] MEDS: QUETIAPINE FUMARATE 50MG TABLET PO SCH ×2 (08:23→22:52)
[2020-05-22] MEDS: AMLODIPINE 10MG TABLET PO SCH (08:24)
[2020-05-22] MEDS: ENOXAPARIN 30MG/0.3ML SYR SUBCUT SCH ×2 (08:25→20:48)
[2020-05-22] MEDS ORDERED: POTASSIUM CHLORIDE INJ 40 MEQ in DEXT 5% WATER 250 ML IV SCH (10:00)
[2020-05-22] MEDS: INSULIN GLARGINE UD 100 UNITS/ML SYR SUBCUT SCH ×2 (10:34→22:55)
[2020-05-22] MEDS ORDERED: DIGOXIN 500MCG/2ML AMP IV NR (12:15)
[2020-05-22] MEDS ORDERED: POTASSIUM CHLORIDE 20MEQ TABLET SR PO NR (12:15)
[2020-05-22] MEDS ORDERED: DILTIAZEM HCL 60MG TABLET PO NR (12:15)
[2020-05-22 15:52] LABS: PLATELET ESTIMATE NORMAL
[2020-05-22] MEDS: DILTIAZEM HCL 60MG TABLET PO SCH (18:01)
[2020-05-22] MEDS: METOPROLOL TARTRATE 100MG TABLET PO SCH (20:48)
[2020-05-23] VITALS (9 sets, daily range): BP systolic 114–149; BP diastolic 62–80
[2020-05-23] MEDS: GUAIFENESIN 200MG/10ML SUGAR FREE UDC GT SCH ×4 (01:16→17:25)
[2020-05-23] MEDS: DILTIAZEM HCL 60MG TABLET PO SCH ×3 (01:16→11:03)
[2020-05-23] MEDS: IPRATROPIUM/ALBUTEROL 0.5-3(2.5)MG/3ML NEB HHN SCH ×3 (02:20→13:21)
[2020-05-23] MEDS: ACETYLCYSTEINE 100MG/ML 10% VIAL 4ML INH SCH ×3 (02:20→13:21)
[2020-05-23] MEDS: BLOOD SUGAR DIAGNOSTIC STRIP TEST SCH ×4 (06:11→18:06)
[2020-05-23] MEDS: INSULIN LISPRO 100 UNITS/ML SUBCUT SCH ×4 (06:19→18:13)
[2020-05-23] MEDS: HYDRALAZINE HCL 100MG TABLET PO SCH ×3 (06:20→22:55)
[2020-05-23 06:34] LABS: HEMATOCRIT. 41.3 % (42.0-52.0); HEMOGLOBIN. 12.6 g/dL (14.0-18.0); MEAN CORPUSCULAR HEMOGLOBIN 21.9 pg (28.0-32.0); MEAN CORPUSCULAR VOLUME 71.7 fL (80.0-94.0); MEAN PLATELET VOLUME 8.7 fl (7.4-10.4); PLATELET 225 x1000/uL (130-400); RED BLOOD CELL COUNT 5.76 mill/uL (4.7-6.1); RED CELL DISTRIBUTION WIDTH 18.2 % (11.6-14.6)
[2020-05-23 06:43] LABS: CHLORIDE 111 mEq/L (98-107)
[2020-05-23] MEDS: POTASSIUM CHLORIDE 20MEQ/PACKET NG SCH (08:48)
[2020-05-23] MEDS: PREDNISONE 20MG TABLET PO SCH (08:49)
[2020-05-23] MEDS: METOPROLOL TARTRATE 100MG TABLET PO SCH ×2 (08:49→21:53)
[2020-05-23] MEDS: QUETIAPINE FUMARATE 50MG TABLET PO SCH ×2 (08:49→21:53)
[2020-05-23] MEDS: PANTOPRAZOLE SODIUM 40 MG/VIAL IV SCH (08:49)
[2020-05-23] MEDS: FUROSEMIDE 40MG/4ML VIAL IVP SCH (08:49)
[2020-05-23] MEDS: DOCUSATE SODIUM SUGAR FREE 100MG/10ML UDC NG SCH (08:49)
[2020-05-23] MEDS: ENOXAPARIN 30MG/0.3ML SYR SUBCUT SCH ×2 (08:58→21:54)
[2020-05-23] MEDS: INSULIN GLARGINE UD 100 UNITS/ML SYR SUBCUT SCH ×2 (10:39→22:57)
[2020-05-23] MEDS ORDERED: SORBITOL 70% SOLN 30ML PO NR (11:00)
[2020-05-23 13:24] LABS: PLATELET ESTIMATE NORMAL
[2020-05-23] MEDS: TRAMADOL 50MG TABLET PO PRN (15:42)
[2020-05-23] MEDS ORDERED: HYDROCODONE/ACETAMINOPHEN 5/325MG TABLET PO PRN (16:45)
[2020-05-23] MEDS: DILTIAZEM HCL 90MG TABLET PO SCH (17:25)
[2020-05-23] MEDS: LACTULOSE 20G/30ML UDC PO PRN (17:40)
[2020-05-23] MEDS: MORPHINE SULFATE 2 MG/ML CPJ (NOT FOR IM USE) IV PRN (19:03)
[2020-05-23] MEDS: IPRATROPIUM BROMIDE (0.02%) 0.5MG/2.5ML NEB HHN SCH (19:55)
[2020-05-24] VITALS (13 sets, daily range): BP systolic 108–142; BP diastolic 53–93
[2020-05-24] MEDS: GUAIFENESIN 200MG/10ML SUGAR FREE UDC GT SCH ×4 (01:12→17:04)
[2020-05-24] MEDS: DILTIAZEM HCL 90MG TABLET PO SCH ×4 (01:13→17:01)
[2020-05-24] MEDS: IPRATROPIUM BROMIDE (0.02%) 0.5MG/2.5ML NEB HHN SCH ×4 (02:03→20:17)
[2020-05-24] MEDS: HYDRALAZINE HCL 100MG TABLET PO SCH ×3 (05:48→21:17)
[2020-05-24] MEDS: BLOOD SUGAR DIAGNOSTIC STRIP TEST SCH ×4 (05:48→18:00)
[2020-05-24] MEDS: INSULIN LISPRO 100 UNITS/ML SUBCUT SCH ×4 (05:59→18:00)
[2020-05-24 06:47] LABS: BASOPHILS % 0.7 % (0.0-2.0); EOSINOPHILS % 0.3 % (0.0-5.0); HEMATOCRIT. 40.2 % (42.0-52.0); HEMOGLOBIN. 12.3 g/dL (14.0-18.0); LYMPHOCYTES % 17.4 % (20.0-50.0); MEAN CORPUSCULAR VOLUME 71.8 fL (80.0-94.0); MONOCYTES % 14.3 % (2.0-8.0); NEUTROPHILS % 67.3 % (40.0-76.0); PLATELET 218 x1000/uL (130-400); RED BLOOD CELL COUNT 5.59 mill/uL (4.7-6.1); RED CELL DISTRIBUTION WIDTH 18.5 % (11.6-14.6)
[2020-05-24 06:55] LABS: CHLORIDE 112 mEq/L (98-107)
[2020-05-24] MEDS: ENOXAPARIN 30MG/0.3ML SYR SUBCUT SCH ×2 (08:00→20:59)
[2020-05-24] MEDS: POTASSIUM CHLORIDE 20MEQ/PACKET NG SCH (08:00)
[2020-05-24] MEDS: DOCUSATE SODIUM SUGAR FREE 100MG/10ML UDC NG SCH (08:00)
[2020-05-24] MEDS: PANTOPRAZOLE SODIUM 40 MG/VIAL IV SCH (08:00)
[2020-05-24] MEDS: QUETIAPINE FUMARATE 50MG TABLET PO SCH ×2 (08:01→20:58)
[2020-05-24] MEDS: FUROSEMIDE 40MG/4ML VIAL IVP SCH (08:01)
[2020-05-24] MEDS: METOPROLOL TARTRATE 100MG TABLET PO SCH ×2 (08:01→20:58)
[2020-05-24] MEDS: PREDNISONE 20MG TABLET PO SCH (08:01)
[2020-05-24] MEDS: MORPHINE SULFATE 2 MG/ML CPJ (NOT FOR IM USE) IV PRN (08:11)
[2020-05-24] MEDS: INSULIN GLARGINE UD 100 UNITS/ML SYR SUBCUT SCH ×2 (10:26→21:08)
[2020-05-24] MEDS ORDERED: POTASSIUM CHLORIDE 20MEQ/PACKET PO NR (10:45)
[2020-05-25] VITALS: BP 136/84
[2020-05-25] MEDS: GUAIFENESIN 200MG/10ML SUGAR FREE UDC GT SCH ×4 (00:04→17:31)
[2020-05-25] MEDS: BLOOD SUGAR DIAGNOSTIC STRIP TEST SCH ×4 (00:05→17:25)
[2020-05-25] MEDS: DILTIAZEM HCL 90MG TABLET PO SCH ×4 (00:05→17:31)
[2020-05-25] MEDS: INSULIN LISPRO 100 UNITS/ML SUBCUT SCH ×4 (00:06→17:32)
[2020-05-25] MEDS: IPRATROPIUM BROMIDE (0.02%) 0.5MG/2.5ML NEB HHN SCH ×4 (01:44→20:12)
[2020-05-25 04:00] VITALS: BP 126/80
[2020-05-25] MEDS: HYDRALAZINE HCL 100MG TABLET PO SCH ×3 (05:45→22:43)
[2020-05-25 08:00] VITALS: BP 128/73
[2020-05-25] MEDS: PANTOPRAZOLE SODIUM 40 MG/VIAL IV SCH (08:24)
[2020-05-25] MEDS: PREDNISONE 20MG TABLET PO SCH (08:24)
[2020-05-25] MEDS: DOCUSATE SODIUM SUGAR FREE 100MG/10ML UDC NG SCH (08:25)
[2020-05-25] MEDS: QUETIAPINE FUMARATE 50MG TABLET PO SCH ×2 (08:25→21:02)
[2020-05-25] MEDS: POTASSIUM CHLORIDE 20MEQ/PACKET NG SCH (08:25)
[2020-05-25] MEDS: METOPROLOL TARTRATE 100MG TABLET PO SCH ×2 (08:26→21:02)
[2020-05-25] MEDS: FUROSEMIDE 40MG/4ML VIAL IVP SCH (08:26)
[2020-05-25] MEDS: ENOXAPARIN 30MG/0.3ML SYR SUBCUT SCH ×2 (08:27→21:01)
[2020-05-25] MEDS: INSULIN GLARGINE UD 100 UNITS/ML SYR SUBCUT SCH ×2 (10:01→22:43)
[2020-05-25 12:00] VITALS: BP 119/69
[2020-05-25 15:53] LABS: BASOPHILS % 0.2 % (0.0-2.0); EOSINOPHILS % 0.1 % (0.0-5.0); HEMATOCRIT. 38.8 % (42.0-52.0); LYMPHOCYTES % 10.4 % (20.0-50.0); MEAN CORPUSCULAR HEMOGLOBIN 22.5 pg (28.0-32.0); MEAN CORPUSCULAR VOLUME 72.8 fL (80.0-94.0); MEAN PLATELET VOLUME 9.8 fl (7.4-10.4); MONOCYTES % 5.5 % (2.0-8.0); NEUTROPHILS % 83.8 % (40.0-76.0); PLATELET 216 x1000/uL (130-400); RED BLOOD CELL COUNT 5.33 mill/uL (4.7-6.1); RED CELL DISTRIBUTION WIDTH 18.6 % (11.6-14.6)
[2020-05-25 16:00] VITALS: BP 138/78
[2020-05-25 16:04] LABS: CHLORIDE 113 mEq/L (98-107)
[2020-05-25 20:00] VITALS: BP 135/78
[2020-05-26] VITALS (8 sets, daily range): BP systolic 118–147; BP diastolic 69–96
[2020-05-26] MEDS: GUAIFENESIN 200MG/10ML SUGAR FREE UDC GT SCH ×5 (00:08→23:17)
[2020-05-26] MEDS: BLOOD SUGAR DIAGNOSTIC STRIP TEST SCH ×5 (00:08→23:20)
[2020-05-26] MEDS: DILTIAZEM HCL 90MG TABLET PO SCH ×5 (00:08→23:19)
[2020-05-26] MEDS: INSULIN LISPRO 100 UNITS/ML SUBCUT SCH ×5 (00:10→23:51)
[2020-05-26] MEDS: IPRATROPIUM BROMIDE (0.02%) 0.5MG/2.5ML NEB HHN SCH ×4 (02:17→20:05)
[2020-05-26] MEDS: HYDRALAZINE HCL 100MG TABLET PO SCH ×3 (05:03→21:58)
[2020-05-26] MEDS: DOCUSATE SODIUM SUGAR FREE 100MG/10ML UDC NG SCH (09:10)
[2020-05-26] MEDS: QUETIAPINE FUMARATE 50MG TABLET PO SCH ×2 (09:10→20:19)
[2020-05-26] MEDS: PANTOPRAZOLE SODIUM 40 MG/VIAL IV SCH (09:10)
[2020-05-26] MEDS: POTASSIUM CHLORIDE 20MEQ/PACKET NG SCH (09:10)
[2020-05-26] MEDS: PREDNISONE 20MG TABLET PO SCH (09:10)
[2020-05-26] MEDS: METOPROLOL TARTRATE 100MG TABLET PO SCH ×2 (09:11→20:19)
[2020-05-26] MEDS: ENOXAPARIN 30MG/0.3ML SYR SUBCUT SCH ×2 (09:12→20:19)
[2020-05-26] MEDS: FUROSEMIDE 40MG/4ML VIAL IVP SCH (09:12)
[2020-05-26] MEDS: INSULIN GLARGINE UD 100 UNITS/ML SYR SUBCUT SCH ×2 (10:30→22:04)
[2020-05-26] MEDS: SORBITOL 70% SOLN 30ML PO PRN (20:31)
[2020-05-27] MEDS: IPRATROPIUM BROMIDE (0.02%) 0.5MG/2.5ML NEB HHN SCH ×4 (01:11→20:52)
[2020-05-27 04:00] VITALS: BP 136/84
[2020-05-27] MEDS: GUAIFENESIN 200MG/10ML SUGAR FREE UDC GT SCH ×4 (05:50→23:20)
[2020-05-27] MEDS: HYDRALAZINE HCL 100MG TABLET PO SCH ×3 (05:51→21:11)
[2020-05-27] MEDS: BLOOD SUGAR DIAGNOSTIC STRIP TEST SCH ×4 (05:55→23:14)
[2020-05-27] MEDS: DILTIAZEM HCL 90MG TABLET PO SCH ×4 (05:55→23:20)
[2020-05-27] MEDS: INSULIN LISPRO 100 UNITS/ML SUBCUT SCH ×4 (05:57→23:22)
[2020-05-27 08:00] VITALS: BP 127/78
[2020-05-27] MEDS: DOCUSATE SODIUM SUGAR FREE 100MG/10ML UDC NG SCH (08:18)
[2020-05-27] MEDS: PANTOPRAZOLE SODIUM 40 MG/VIAL IV SCH (08:18)
[2020-05-27] MEDS: QUETIAPINE FUMARATE 50MG TABLET PO SCH ×2 (08:18→20:45)
[2020-05-27] MEDS: POTASSIUM CHLORIDE 20MEQ/PACKET NG SCH (08:18)
[2020-05-27] MEDS: METOPROLOL TARTRATE 100MG TABLET PO SCH ×2 (08:18→20:44)
[2020-05-27] MEDS: FUROSEMIDE 40MG/4ML VIAL IVP SCH (08:19)
[2020-05-27] MEDS: ENOXAPARIN 30MG/0.3ML SYR SUBCUT SCH ×2 (08:19→20:45)
[2020-05-27] MEDS: PREDNISONE 20MG TABLET PO SCH (08:19)
[2020-05-27] MEDS: INSULIN GLARGINE UD 100 UNITS/ML SYR SUBCUT SCH ×2 (10:35→21:23)
[2020-05-27 12:00] VITALS: BP 115/68
[2020-05-27 16:00] VITALS: BP 132/75
[2020-05-27 20:00] VITALS: BP 103/65
[2020-05-28] VITALS: BP 128/76
[2020-05-28] MEDS: IPRATROPIUM BROMIDE (0.02%) 0.5MG/2.5ML NEB HHN SCH ×4 (01:26→22:34)
[2020-05-28 03:48] VITALS: BP 141/88
[2020-05-28] MEDS: GUAIFENESIN 200MG/10ML SUGAR FREE UDC GT SCH ×3 (05:02→17:56)
[2020-05-28] MEDS: HYDRALAZINE HCL 100MG TABLET PO SCH ×3 (05:07→22:21)
[2020-05-28] MEDS: BLOOD SUGAR DIAGNOSTIC STRIP TEST SCH ×4 (05:08→23:57)
[2020-05-28] MEDS: DILTIAZEM HCL 90MG TABLET PO SCH ×3 (05:08→17:57)
[2020-05-28] MEDS: INSULIN LISPRO 100 UNITS/ML SUBCUT SCH ×3 (05:10→17:57)
[2020-05-28 07:21] LABS: BASOPHILS % 0.4 % (0.0-2.0); EOSINOPHILS % 0.3 % (0.0-5.0); HEMATOCRIT. 39.3 % (42.0-52.0); LYMPHOCYTES % 22.8 % (20.0-50.0); MEAN CORPUSCULAR VOLUME 72.1 fL (80.0-94.0); MEAN PLATELET VOLUME 9.3 fl (7.4-10.4); MONOCYTES % 13.1 % (2.0-8.0); NEUTROPHILS % 63.4 % (40.0-76.0); PLATELET 230 x1000/uL (130-400); RED BLOOD CELL COUNT 5.45 mill/uL (4.7-6.1); RED CELL DISTRIBUTION WIDTH 18.4 % (11.6-14.6)
[2020-05-28 07:25] LABS: CHLORIDE 104 mEq/L (98-107)
[2020-05-28 08:00] VITALS: BP 130/72
[2020-05-28] MEDS: METOPROLOL TARTRATE 100MG TABLET PO SCH ×2 (08:57→20:36)
[2020-05-28] MEDS: PANTOPRAZOLE SODIUM 40 MG/VIAL IV SCH (08:57)
[2020-05-28] MEDS: QUETIAPINE FUMARATE 50MG TABLET PO SCH (08:58)
[2020-05-28] MEDS: PREDNISONE 20MG TABLET PO SCH (08:58)
[2020-05-28] MEDS: POTASSIUM CHLORIDE 20MEQ/PACKET NG SCH (08:59)
[2020-05-28] MEDS: FUROSEMIDE 40MG/4ML VIAL IVP SCH (08:59)
[2020-05-28] MEDS: ENOXAPARIN 30MG/0.3ML SYR SUBCUT SCH ×2 (08:59→20:37)
[2020-05-28] MEDS ORDERED: POTASSIUM CHLORIDE INJ 40 MEQ in DEXT 5% WATER 250 ML IV NR (10:00)
[2020-05-28 12:00] VITALS: BP 112/70
[2020-05-28] MEDS: INSULIN GLARGINE UD 100 UNITS/ML SYR SUBCUT SCH ×2 (12:42→22:21)
[2020-05-28 16:00] VITALS: BP 136/74
[2020-05-28 20:00] VITALS: BP 140/91
[2020-05-29] VITALS: BP 133/78
[2020-05-29] MEDS: GUAIFENESIN 200MG/10ML SUGAR FREE UDC GT SCH ×5 (00:05→23:08)
[2020-05-29] MEDS: INSULIN LISPRO 100 UNITS/ML SUBCUT SCH ×5 (00:07→23:03)
[2020-05-29] MEDS: DILTIAZEM HCL 90MG TABLET PO SCH ×5 (00:07→23:08)
[2020-05-29] MEDS: IPRATROPIUM BROMIDE (0.02%) 0.5MG/2.5ML NEB HHN SCH ×4 (02:55→21:01)
[2020-05-29 03:48] VITALS: BP 139/69
[2020-05-29] MEDS: HYDRALAZINE HCL 100MG TABLET PO SCH ×3 (06:08→21:29)
[2020-05-29] MEDS: BLOOD SUGAR DIAGNOSTIC STRIP TEST SCH ×4 (06:25→23:03)
[2020-05-29 06:56] LABS: HEMATOCRIT. 40.3 % (42.0-52.0); HEMOGLOBIN. 12.3 g/dL (14.0-18.0); MEAN CORPUSCULAR HEMOGLOBIN 21.9 pg (28.0-32.0); MEAN CORPUSCULAR VOLUME 71.4 fL (80.0-94.0); MEAN PLATELET VOLUME 9.1 fl (7.4-10.4); PLATELET 244 x1000/uL (130-400); RED BLOOD CELL COUNT 5.65 mill/uL (4.7-6.1); RED CELL DISTRIBUTION WIDTH 18.6 % (11.6-14.6)
[2020-05-29 07:19] LABS: CHLORIDE 104 mEq/L (98-107)
[2020-05-29 08:00] VITALS: BP 135/73
[2020-05-29] MEDS ORDERED: POTASSIUM CHLORIDE 20MEQ/PACKET NG SCH (09:00)
[2020-05-29] MEDS ORDERED: POTASSIUM CHLORIDE INJ 40 MEQ in DEXT 5% WATER 250 ML IV NR (10:00)
[2020-05-29] MEDS: ENOXAPARIN 30MG/0.3ML SYR SUBCUT SCH ×2 (10:25→21:29)
[2020-05-29] MEDS: PANTOPRAZOLE SODIUM 40 MG/VIAL IV SCH (10:27)
[2020-05-29] MEDS: INSULIN GLARGINE UD 100 UNITS/ML SYR SUBCUT SCH ×2 (10:27→23:10)
[2020-05-29] MEDS: FUROSEMIDE 40MG/4ML VIAL IVP SCH (10:27)
[2020-05-29] MEDS: PREDNISONE 20MG TABLET PO SCH (10:28)
[2020-05-29] MEDS: METOPROLOL TARTRATE 100MG TABLET PO SCH ×2 (10:29→21:29)
[2020-05-29 12:00] VITALS: BP 135/73
[2020-05-29 13:41] LABS: PLATELET ESTIMATE NORMAL
[2020-05-29 16:00] VITALS: BP 131/68
[2020-05-29] MEDS: POTASSIUM CHLORIDE 20MEQ/PACKET NG SCH (18:18)
[2020-05-29 20:00] VITALS: BP 121/78
[2020-05-30] VITALS: BP 129/75
[2020-05-30] MEDS: IPRATROPIUM BROMIDE (0.02%) 0.5MG/2.5ML NEB HHN SCH ×3 (01:36→15:15)
[2020-05-30 04:00] VITALS: BP 131/75
[2020-05-30] MEDS: BLOOD SUGAR DIAGNOSTIC STRIP TEST SCH ×2 (05:06→12:00)
[2020-05-30] MEDS: INSULIN LISPRO 100 UNITS/ML SUBCUT SCH ×2 (05:06→15:24)
[2020-05-30] MEDS: HYDRALAZINE HCL 100MG TABLET PO SCH ×2 (05:12→15:26)
[2020-05-30] MEDS: DILTIAZEM HCL 90MG TABLET PO SCH ×2 (05:12→12:23)
[2020-05-30] MEDS: GUAIFENESIN 200MG/10ML SUGAR FREE UDC GT SCH ×2 (05:12→11:12)
[2020-05-30 08:00] VITALS: BP 118/75
[2020-05-30] MEDS: PREDNISONE 20MG TABLET PO SCH (08:04)
[2020-05-30] MEDS: FUROSEMIDE 40MG/4ML VIAL IVP SCH (08:05)
[2020-05-30] MEDS: PANTOPRAZOLE SODIUM 40 MG/VIAL IV SCH (08:05)
[2020-05-30] MEDS: ENOXAPARIN 30MG/0.3ML SYR SUBCUT SCH (08:05)
[2020-05-30] MEDS: POTASSIUM CHLORIDE 20MEQ/PACKET NG SCH ×2 (08:05→16:20)
[2020-05-30] MEDS: METOPROLOL TARTRATE 100MG TABLET PO SCH (08:06)
[2020-05-30] MEDS: INSULIN GLARGINE UD 100 UNITS/ML SYR SUBCUT SCH (11:15)
[2020-05-30 12:00] VITALS: BP 123/53
[2020-05-30] MEDS: ACETAMINOPHEN 325MG TABLET PO PRN (12:23)
[2020-05-30 16:00] VITALS: BP 124/84
== END 2020-05-30 19:17 | DRG 720 ==
LOC: ER 11:20 → 8WST 15:32 → ENRESERV 23:58 → CVICU 04-19 01:20 → MICUSO 05-12 16:15 → 5EST 05-14 12:17
PROVIDERS: ADMIT Internal Medicine; ATTEND Internal Medicine
PROC: 5A1955Z Respiratory Ventilation, Greater than 96 Consecutive Hours (ICD-10-PCS; principal; 2020-04-19)
PROC: 02HV33Z Insertion of Infusion Device into Superior Vena Cava, Percutaneous Approach (ICD-10-PCS; 2020-04-19)
PROC: B548ZZA Ultrasonography of Superior Vena Cava, Guidance (ICD-10-PCS; 2020-04-19)
PROC: 5A09357 Assistance with Respiratory Ventilation, Less than 24 Consecutive Hours, Continuous Positive Airway Pressure (ICD-10-PCS; 2020-04-19)
PROC: 0BH17EZ Insertion of Endotracheal Airway into Trachea, Via Natural or Artificial Opening (ICD-10-PCS; 2020-04-19)
DX: A41.89 Other specified sepsis (principal); U07.1 COVID-19; J12.82 Pneumonia due to coronavirus disease 2019; A41.01 Sepsis due to Methicillin susceptible Staphylococcus aureus; R65.20 Severe sepsis without septic shock; J96.01 Acute respiratory failure with hypoxia; E44.1 Mild protein-calorie malnutrition; E87.1 Hypo-osmolality and hyponatremia; E87.6 Hypokalemia; E11.9 Type 2 diabetes mellitus without complications; J45.909 Unspecified asthma, uncomplicated; I10 Essential (primary) hypertension; E87.2 Acidosis; E87.8 Other disorders of electrolyte and fluid balance, not elsewhere classified; E66.01 Morbid (severe) obesity due to excess calories; D69.6 Thrombocytopenia, unspecified; E78.1 Pure hyperglyceridemia; E86.1 Hypovolemia; E87.0 Hyperosmolality and hypernatremia; E87.70 Fluid overload, unspecified; K59.00 Constipation, unspecified; Z88.8 Allergy status to other drugs, medicaments and biological substances; Z79.899 Other long term (current) drug therapy; Z68.41 Body mass index [BMI] 40.0-44.9, adult; Z90.49 Acquired absence of other specified parts of digestive tract
CPT/HCPCS: 31500; 36415; 36600; 71045; 74018; 76937; 80048; 80053; 82375; 82728; 82805; 82962; 83036; 83605; 83615; 83735; 83880; 84100; 84145; 84478; 84484; 85025; 85379; 86140; 87070; 87186; 87426; 87635; 92610; 93005; 93306; 94002; 94003; 94640; 94660; 96365; 97110; 97162; 97166; 97530; 97535; 99291; A6261; C1725; C1893; C9113; J0360; J0456; J0690; J0692; J0696; J1160; J1650; J1815; J1940; J2060; J2250; J2270; J2370; J2405; J2704; J2920; J2930; J3010; J3480; J3490; J7040; J7050; J7060; J7512; J7608; J8540; A4315

== ENCOUNTER 2022-06-17 08:04 | Inpatient (IN) | payer MEDICAID, OTHER ==
[~2022-06-17] VITALS: Ht 180.3 cm; Wt 174.2 kg
[~2022-06-17 08:04] MED LIST changes: +AMLO10TA4 PO; -AMLO5TAB4; +ATOR20TA PO; +BENA-8 MT; -BENA10TA74; +ERTU1TAB11 PO; +FLUT1BLS IH; +HYDR25TA PO; +IBUP-2029 PO; -LIDOCAINE HCL/PF 1% 2ML VIAL ONE; +OMEP20TA15 PO; -PRIL10; -SIMV5TAB58
[2022-06-17] MEDS ORDERED: IOHEXOL-350 100 ML BOTTLE ONE (08:54)
[2022-06-17] MEDS ORDERED: METF-414 PO (09:07)
[2022-06-17] MEDS ORDERED: DILT90TA2 PO (09:08)
[2022-06-17] MEDS ORDERED: HYDR100T31 PO (09:09)
[2022-06-17 09:10] LABS: HEMOGLOBIN. 12.8 g/dL (14.0-18.0); MEAN CORPUSCULAR HEMOGLOBIN 21.5 pg (28.0-32.0); MEAN CORPUSCULAR VOLUME 70.6 fL (80.0-94.0); MEAN PLATELET VOLUME 8.1 fl (7.4-10.4); PLATELET 345 x1000/uL (130-400); RED BLOOD CELL COUNT 5.95 mill/uL (4.7-6.1); RED CELL DISTRIBUTION WIDTH 16.7 % (11.6-14.6)
[2022-06-17] MEDS ORDERED: GABA-529 PO (09:10)
[2022-06-17] MEDS ORDERED: FOLI-43 PO (09:11)
[2022-06-17] MEDS ORDERED: METO100T16 PO (09:11)
[2022-06-17 09:12] LABS: CHLORIDE 98 mEq/L (98-107)
[2022-06-17] MEDS ORDERED: TRAZ-252 PO (09:12)
[2022-06-17] MEDS ORDERED: RISP0.2514 PO (09:12)
[2022-06-17] MEDS ORDERED: ESOM20CA PO (09:13)
[2022-06-17] MEDS ORDERED: INSU100I24 SQ (09:14)
[2022-06-17] MEDS ORDERED: INSU100I32 SQ (09:15)
[2022-06-17] MEDS ORDERED: BLOO-1823 SQ (09:16)
[2022-06-17] MEDS ORDERED: EMPA25TA PO (09:17)
[2022-06-17] MEDS ORDERED: IPRA3AMP9 HHN (09:18)
[2022-06-17] MEDS ORDERED: TRELEGY 200-62.5-25 INH (09:20)
[2022-06-17] MEDS ORDERED: FURO40TA5 PO (09:23)
[2022-06-17] MEDS ORDERED: POTA-189 PO (09:23)
[2022-06-17 09:25] LABS: ETHANOL BLOOD < 10 mg/dL
[2022-06-17 09:38] LABS: PROTHROMBIN TIME 10.7 sec (9.6-11.0)
[2022-06-17 10:18] LABS: CLARITY URINE CLEAR (CLEAR); COLOR URINE YELLOW (YELLOW); KETONES URINE 3+ (NEGATIVE); LEUKOCYTE ESTERASE URINE NEGATIVE (NEGATIVE); NITRITE URINE NEGATIVE (NEGATIVE); OCCULT BLOOD URINE NEGATIVE (NEGATIVE); PH URINE 6.5 (4.5-8.0); PROTEIN URINE 1+ (NEGATIVE); UROBILINOGEN URINE 0.2 E.U./dL (0.2-1.0)
[2022-06-17 10:36] LABS: PLATELET ESTIMATE NORMAL
[2022-06-17 10:42] LABS: *AMPHETAMINES SCREEN URINE NEGATIVE (NEGATIVE); *BARBITURATES SCREEN URINE NEGATIVE (NEGATIVE); *BENZODIAZEPINES SCREEN URINE NEGATIVE (NEGATIVE); *COCAINE SCREEN URINE NEGATIVE (NEGATIVE); CANNABINOID URINE SCREEN NEGATIVE (NEGATIVE); METHADONE URINE SCREEN NEGATIVE (NEGATIVE); OPIATES URINE SCREEN NEGATIVE (NEGATIVE); PHENCYCLIDINE URINE SCREEN NEGATIVE (NEGATIVE)
[2022-06-17 14:00] VITALS: BP 113/76
[2022-06-17] MEDS ORDERED: ZOLPIDEM TARTRATE 5MG TABLET PO PRN (14:15)
[2022-06-17] MEDS ORDERED: MAGNESIUM/ALUMINUM HYDROXIDE/SIMETHICONE 30ML UDC PO PRN (14:15)
[2022-06-17] MEDS ORDERED: DEXTROSE 50% WATER 50ML SYRINGE IV PRN (14:15)
[2022-06-17] MEDS ORDERED: ACETAMINOPHEN 325MG TABLET PO PRN ×2 (14:15)
[2022-06-17] MEDS ORDERED: CLONIDINE 0.1MG TABLET PO PRN (14:15)
[2022-06-17] MEDS: PANTOPRAZOLE SODIUM 40 MG/VIAL IV SCH (14:15)
[2022-06-17] MEDS ORDERED: GUAIFENESIN 200MG/10ML SUGAR FREE UDC PO PRN (14:15)
[2022-06-17] MEDS ORDERED: KETOROLAC 30MG/ML VIAL IV PRN (14:15)
[2022-06-17] MEDS ORDERED: ENOXAPARIN 40MG/0.4ML SYR SUBCUT SCH (14:15)
[2022-06-17] MEDS ORDERED: IPRATROPIUM/ALBUTEROL 0.5-3(2.5)MG/3ML NEB NEB PRN (14:15)
[2022-06-17] MEDS ORDERED: NITROGLYCERIN 0.4MG TABLET SL SL PRN (14:15)
[2022-06-17] MEDS ORDERED: ONDANSETRON HCL 4MG/2ML INJ IV PRN (14:15)
[2022-06-17] MEDS ORDERED: DOCUSATE SODIUM 100MG CAPSULE PO PRN (14:15)
[2022-06-17] MEDS: DEXT 5%/LACTATED RINGERS 1,000 ML IV SCH (15:00)
[2022-06-17 15:44] LABS: T4 FREE 1.31 ng/dL (0.76-1.46)
[2022-06-17 17:54] LABS: VITAMIN B12 SERUM 708 pg/mL (211-911)
[2022-06-17 18:08] LABS: FOLIC ACID (FOLATE) SERUM > 20.00 ng/mL (>5.38)
[2022-06-17] MEDS: BLOOD SUGAR DIAGNOSTIC STRIP TEST SCH ×2 (18:08→20:40)
[2022-06-17] MEDS: INSULIN LISPRO 100 UNITS/ML SUBCUT SCH ×2 (18:08→20:39)
[2022-06-17 18:21] VITALS: BP 113/76
[2022-06-17] MEDS ORDERED: BENA5TAB40 MT (18:37)
[2022-06-17] MEDS ORDERED: KCL 20MEQ/100ML PREMIX 100 ML IV SCH (20:00)
[2022-06-17] MEDS ORDERED: POTASSIUM CHLORIDE 20MEQ/PACKET PO SCH (20:00)
[2022-06-17 20:25] VITALS: BP 119/74
[2022-06-17] MEDS: ENOXAPARIN 40MG/0.4ML SYR SUBCUT SCH (20:40)
[2022-06-18] VITALS: BP 118/70
[2022-06-18 00:46] LABS: CREATINE KINASE MB FRACTION 1.6 ng/mL (0.5-3.6)
[2022-06-18] MEDS ORDERED: VANCOMYCIN 2,000 MG in DEXT 5% WATER 500 ML IV NR (01:15)
[2022-06-18] MEDS: AMPICILLIN SOD/SULBACTAM NA 1.5 G in SODIUM CHLORIDE 0.9% 50 ML IV SCH ×4 (01:18→20:04)
[2022-06-18 03:44] LABS: HEMATOCRIT. 42.3 % (42.0-52.0); HEMOGLOBIN. 12.7 g/dL (14.0-18.0); MEAN CORPUSCULAR HEMOGLOBIN 21.3 pg (28.0-32.0); MEAN CORPUSCULAR VOLUME 70.5 fL (80.0-94.0); MEAN PLATELET VOLUME 8.4 fl (7.4-10.4); PLATELET 336 x1000/uL (130-400); RED CELL DISTRIBUTION WIDTH 16.8 % (11.6-14.6)
[2022-06-18 04:20] VITALS: BP 135/70
[2022-06-18 05:01] LABS: CHLORIDE 100 mEq/L (98-107)
[2022-06-18 05:10] LABS: CREATINE KINASE 102 IU/L (39-308); CREATINE KINASE MB FRACTION 1.8 ng/mL (0.5-3.6); PHOSPHORUS 3.1 mg/dL (2.5-4.9)
[2022-06-18] MEDS: DEXT 5%/LACTATED RINGERS 1,000 ML IV SCH ×2 (05:50→17:17)
[2022-06-18] MEDS: BLOOD SUGAR DIAGNOSTIC STRIP TEST SCH ×4 (06:51→20:30)
[2022-06-18 07:43] LABS: PLATELET ESTIMATE NORMAL
[2022-06-18 08:00] VITALS: BP 131/80
[2022-06-18] MEDS ORDERED: VANCOMYCIN 1G PREMIX 200 ML IV SCH (08:00)
[2022-06-18] MEDS: PANTOPRAZOLE SODIUM 40 MG/VIAL IV SCH (08:11)
[2022-06-18] MEDS: INSULIN LISPRO 100 UNITS/ML SUBCUT SCH ×4 (08:12→20:42)
[2022-06-18] MEDS: ENOXAPARIN 40MG/0.4ML SYR SUBCUT SCH ×2 (08:12→20:43)
[2022-06-18] MEDS: VANCOMYCIN 1.25GM PMX (XELLIA) 250 ML IV SCH ×2 (09:41→17:16)
[2022-06-18 12:00] VITALS: BP 150/84
[2022-06-18] MEDS ORDERED: POTASSIUM CHLORIDE 20MEQ/PACKET PO NR (12:30)
[2022-06-18] MEDS ORDERED: KETOROLAC 15MG/ML VIAL IV PRN (12:35)
[2022-06-18] MEDS ORDERED: KCL 20MEQ/100ML PREMIX 100 ML IV NR (14:00)
[2022-06-18 16:00] VITALS: BP 130/99
[2022-06-18 20:00] VITALS: BP 148/89
[2022-06-18] MEDS ORDERED: IPRATROPIUM BROMIDE (0.02%) 0.5MG/2.5ML NEB HHN PRN (21:15)
[2022-06-18] MEDS ORDERED: ALBUTEROL (0.083%) 2.5MG/3ML NEB HHN PRN (21:15)
[2022-06-19 00:20] VITALS: BP 133/91
[2022-06-19] MEDS: AMPICILLIN SOD/SULBACTAM NA 1.5 G in SODIUM CHLORIDE 0.9% 50 ML IV SCH ×4 (00:20→20:40)
[2022-06-19] MEDS: VANCOMYCIN 1.25GM PMX (XELLIA) 250 ML IV SCH ×2 (02:36→09:14)
[2022-06-19 03:48] VITALS: BP 138/90
[2022-06-19] MEDS: DEXT 5%/LACTATED RINGERS 1,000 ML IV SCH ×2 (06:34→20:47)
[2022-06-19] MEDS: BLOOD SUGAR DIAGNOSTIC STRIP TEST SCH ×4 (06:34→21:37)
[2022-06-19 08:00] VITALS: BP 152/86
[2022-06-19] MEDS: ENOXAPARIN 40MG/0.4ML SYR SUBCUT SCH ×2 (08:42→20:48)
[2022-06-19] MEDS: FAMOTIDINE 20MG/2ML VIAL IV SCH ×2 (08:42→20:47)
[2022-06-19] MEDS: INSULIN LISPRO 100 UNITS/ML SUBCUT SCH ×4 (08:43→22:05)
[2022-06-19 11:49] VITALS: BP 152/94
[2022-06-19 16:00] VITALS: BP 148/85
[2022-06-19 20:00] VITALS: BP 157/99
[2022-06-19] MEDS: VANCOMYCIN 1G PREMIX 200 ML IV SCH (22:48)
[2022-06-20] VITALS: BP 149/92
[2022-06-20] MEDS: AMPICILLIN SOD/SULBACTAM NA 1.5 G in SODIUM CHLORIDE 0.9% 50 ML IV SCH ×3 (00:42→13:16)
[2022-06-20 04:00] VITALS: BP 148/87
[2022-06-20] MEDS: VANCOMYCIN 1G PREMIX 200 ML IV SCH ×3 (05:01→21:11)
[2022-06-20] MEDS: BLOOD SUGAR DIAGNOSTIC STRIP TEST SCH ×4 (06:47→20:50)
[2022-06-20 07:48] VITALS: BP 136/97
[2022-06-20] MEDS: ENOXAPARIN 40MG/0.4ML SYR SUBCUT SCH ×2 (09:17→21:10)
[2022-06-20] MEDS: DEXT 5%/LACTATED RINGERS 1,000 ML IV SCH ×2 (09:17→22:24)
[2022-06-20] MEDS: FAMOTIDINE 20MG/2ML VIAL IV SCH (09:17)
[2022-06-20] MEDS: INSULIN LISPRO 100 UNITS/ML SUBCUT SCH ×4 (09:18→20:50)
[2022-06-20 12:04] VITALS: BP 136/100
[2022-06-20 15:27] VITALS: BP 142/86
[2022-06-20 20:51] VITALS: BP 151/91
[2022-06-20] MEDS: FAMOTIDINE 20MG TABLET PO SCH (21:10)
[2022-06-21] VITALS (7 sets, daily range): BP systolic 140–160; BP diastolic 53–104
[2022-06-21 03:28] LABS: HEMATOCRIT. 38.6 % (42.0-52.0); HEMOGLOBIN. 11.5 g/dL (14.0-18.0); MEAN CORPUSCULAR HEMOGLOBIN 20.9 pg (28.0-32.0); MEAN PLATELET VOLUME 8.5 fl (7.4-10.4); PLATELET 282 x1000/uL (130-400); RED BLOOD CELL COUNT 5.52 mill/uL (4.7-6.1); RED CELL DISTRIBUTION WIDTH 16.8 % (11.6-14.6)
[2022-06-21 03:43] LABS: CHLORIDE 105 mEq/L (98-107)
[2022-06-21] MEDS: BLOOD SUGAR DIAGNOSTIC STRIP TEST SCH ×4 (05:16→20:39)
[2022-06-21] MEDS: INSULIN LISPRO 100 UNITS/ML SUBCUT SCH ×4 (05:16→20:39)
[2022-06-21] MEDS: VANCOMYCIN 1G PREMIX 200 ML IV SCH ×3 (05:16→20:38)
[2022-06-21] MEDS: FAMOTIDINE 20MG TABLET PO SCH ×2 (10:09→20:39)
[2022-06-21] MEDS: ENOXAPARIN 40MG/0.4ML SYR SUBCUT SCH ×2 (10:09→20:39)
[2022-06-21] MEDS: DEXT 5%/LACTATED RINGERS 1,000 ML IV SCH (12:46)
[2022-06-21 13:15] LABS: PLATELET ESTIMATE NORMAL
[2022-06-22] VITALS: BP 105/56
[2022-06-22 04:00] VITALS: BP_SYST 149; BP_SYST 190; BP_DIAS 100; BP_DIAS 108
[2022-06-22] MEDS: DEXT 5%/LACTATED RINGERS 1,000 ML IV SCH ×2 (04:32→15:45)
[2022-06-22] MEDS: VANCOMYCIN 1G PREMIX 200 ML IV SCH ×2 (04:35→15:45)
[2022-06-22] MEDS: BLOOD SUGAR DIAGNOSTIC STRIP TEST SCH ×3 (06:46→17:20)
[2022-06-22] MEDS ORDERED: POTASSIUM CHLORIDE 20MEQ/PACKET PO NR (07:15)
[2022-06-22 07:59] VITALS: BP 130/97
[2022-06-22] MEDS: FAMOTIDINE 20MG TABLET PO SCH (08:06)
[2022-06-22] MEDS: ENOXAPARIN 40MG/0.4ML SYR SUBCUT SCH (08:07)
[2022-06-22] MEDS: INSULIN LISPRO 100 UNITS/ML SUBCUT SCH ×3 (08:07→17:55)
[2022-06-22 08:48] LABS: CHLORIDE 106 mEq/L (98-107)
[2022-06-22 11:17] VITALS: BP 144/88
[2022-06-22 15:22] VITALS: BP 171/92
[2022-06-22 18:40] VITALS: BP 152/88
== END 2022-06-22 18:30 | DRG 720 ==
LOC: ER 08:04 → EDBEDREQTM 10:41 → EDBEDREQ 10:41 → EDBEDREQSVC 10:41 → 7WST 11:57 → EDBEDREQTM 11:59 → EDBEDREQ 11:59
PROVIDERS: ADMIT Internal Medicine; ATTEND Internal Medicine
DX: A40.1 Sepsis due to streptococcus, group B (principal); G92.8 Other toxic encephalopathy; E44.0 Moderate protein-calorie malnutrition; E87.6 Hypokalemia; E11.9 Type 2 diabetes mellitus without complications; E66.01 Morbid (severe) obesity due to excess calories; Z20.822 Contact with and (suspected) exposure to COVID-19; I10 Essential (primary) hypertension; J44.9 Chronic obstructive pulmonary disease, unspecified; Z88.8 Allergy status to other drugs, medicaments and biological substances; Z79.899 Other long term (current) drug therapy; Z68.43 Body mass index [BMI] 50.0-59.9, adult
CPT/HCPCS: 36415; 70496; 70498; 71045; 74176; 80048; 80053; 80202; 80305; 80320; 81003; 82550; 82553; 82607; 82746; 82962; 83540; 83550; 83605; 83735; 84100; 84145; 84439; 84443; 84484; 85025; 85651; 87077; 87186; 87426; 93005; 93306; 93970; 99291; A6261; C9113; J0295; J1650; J1815; J3370; J3480; J3490; J7060; J7121; Q9967; G0480

== ENCOUNTER 2022-06-23 20:54 | Emergency (ER) | payer MEDICAID ==
[~2022-06-23] VITALS: Ht 180.3 cm; Wt 159.6 kg
[~2022-06-23 20:54] MED LIST changes: -ALBU17AE26; +BENA5TAB40 MT; +BLOO-1823 SQ; +DILT90TA2 PO; +EMPA25TA PO; -ERTU1TAB11 PO; +ESOM20CA PO; -FLUT1BLS IH; +FOLI-43 PO; +FURO40TA5 PO; +GABA-529 PO; +HYDR100T31 PO; -HYDR25TA; +INSU100I24 SQ; +INSU100I32 SQ; +IPRA3AMP9 HHN; +METF-414 PO; +METO100T16 PO; -OMEP20TA15 PO; +POTA-189 PO; +RISP0.2514 PO; +TRAZ-252 PO; +TRELEGY 200-62.5-25 INH
[2022-06-23 23:56] LABS: HEMATOCRIT. 39.6 % (42.0-52.0); HEMOGLOBIN. 12.1 g/dL (14.0-18.0); MEAN CORPUSCULAR HEMOGLOBIN 21.6 pg (28.0-32.0); MEAN CORPUSCULAR VOLUME 70.3 fL (80.0-94.0); MEAN PLATELET VOLUME 8.2 fl (7.4-10.4); PLATELET 275 x1000/uL (130-400); RED BLOOD CELL COUNT 5.63 mill/uL (4.7-6.1); RED CELL DISTRIBUTION WIDTH 17.2 % (11.6-14.6)
[2022-06-24 00:05] LABS: CHLORIDE 105 mEq/L (98-107)
[2022-06-24] MEDS ORDERED: ASPIRIN 325MG EC TABLET PO ONE (01:00)
[2022-06-24 01:14] LABS: PLATELET ESTIMATE NORMAL
[2022-06-24] MEDS ORDERED: AMLO10TA4 PO (02:49)
[2022-06-24] MEDS ORDERED: CLAR10 MT (02:49)
[2022-06-24] MEDS ORDERED: BENA-8 MT (02:49)
[2022-06-24] MEDS ORDERED: POTASSIUM CHLORIDE 20MEQ TABLET SR PO ONE (05:30)
[2022-06-26 03:30] VITALS: BP 129/75
== END 2022-06-26 14:47 | disposition home or self-care (01) ==
LOC: ER 20:54
DX: R42 Dizziness and giddiness (principal); E11.9 Type 2 diabetes mellitus without complications; J44.1 Chronic obstructive pulmonary disease with (acute) exacerbation; Z79.899 Other long term (current) drug therapy; Z86.59 Personal history of other mental and behavioral disorders
CPT/HCPCS: 36415; 71045; 80053; 82962; 83605; 83880; 84484; 85025; 93005; 99285